=== PATIENT | female | born 1975 | race Caucasian/White ===

== ENCOUNTER 2023-12-08 09:13 | Emergency (ER) | payer OTHER, SELFPAY ==
--- NOTE | ~2023-12-08 | XR_ITS ---
XR toe 2nd RT min 2V 12/08/2023 09:50 Indication: Right second toe pain after recent fracture Procedure: 4 views right second toe Comparison: No prior studies for comparison. Findings: There is an ossific density medial to the second proximal phalangeal head, consistent with age-indeterminate avulsion fracture. There is a single screw in the first metatarsal neck. 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 No focal soft tissue abnormality. No foreign bodies. Impression: 1: Ossific density medial to the second proximal phalangeal head, consistent with age-indeterminate a vulsion fracture. Reviewed, dictated and finalized at location B. Impression: 1: Ossific density medial to the second proximal phalangeal head, consistent wi th age-indeterminate avulsion fracture.
[2023-12-08 09:25] VITALS: BP 131/73; PULSE 71; RESP 16; TEMP 36.8; O2SAT 100
--- NOTE | 2023-12-08 09:35 | ED.LOWEXIN ---
HPI - Extremity Injury (Lower) General Chief Complaint: Extremity Injury, Lower Stated Complaint: Toe Rt Foot Pain Time Seen by Provider: 12/08/23 09:33 Source: patient and RN notes reviewed Mode of arrival: ambulatory Limitations: no limitations History of Present Illness HPI Narrative: 47 year old female presents with concern for increasing pain to the 2 digit of her right foot. Reports she broke the toe at the beginning of November. She has been using dylan tape and has recently started wearing a post op shoe. She denies new injury or trauma to the toe. She reports redness and burning senstation. complaint: foot injury Related Data Home Medications Medication Instructions Recorded Confirmed sertraline 50 mg tablet 50 mg PO DAILY 12/08/23 12/08/23 spironolactone 100 mg tablet 100 mg PO DAILY 12/08/23 12/08/23 trazodone 100 mg tablet 100 mg PO HS 12/08/23 12/08/23 Allergies Allergy/AdvReac Type Severity Reaction Status Date / Time No Known Allergies Allergy Verified 12/08/23 09:22 Review of Systems Review of Systems: CONSTITUTIONAL: Denies malaise, chills, sweats, or fever. SKIN: Denies rash or itching, open skin, laceration, abrasion MUSCULOSKELETAL: Reports pain to the 2nd digit of the right foot, warmth, and redness NEUROLOGIC: Denies numbness, weakness All systems reviewed & are unremarkable except as noted in HPI and below PMFSH Comments At time of signature, agree with nursing past medical, surgical, social and family history. There is no relevant family history pertinent to the presenting complaint Exam Narrative: GENERAL: Well-appearing, well-nourished, and in no acute distress. HEAD: Normocephalic, atraumatic. EYES: PERRLA, conjunctivae clear NECK: Supple. CHEST: Speaks in full sentences. No respiratory distress. HEART: Regular rate and rhythm. Normal and equal peripheral pulses. EXTREMITIES: 2nd digit of the right foot has grossly normal strength and sensation. No ecchymosis. My digit erythema noted with very mild edema. Normal sensation with sensitivity to light touch and pain. Mid digit tenderness. No open wounds, no skin tenting, no devitalized tissue or atrophy, no trophic changes, no obvious deformity, alignment normal, nearby joints and structures intact. Distal pulses palpable and equal bilaterally, skin warm, dry, pink. Capillary refill less than 3 seconds. SKIN: Warm, dry, no rash. NEURO: Alert and oriented x3. PSYCH: Normal mood and affect Course Course Emergency Course: Patient is aware of diagnosis, understands and agrees to treatment plan. Anticipatory guidance given. Patient agrees to follow-up as directed and is aware of reasons to seek care at the emergency department. Portions of this record may have been created with voice recognition software Level of Care: Express Care Visit Vital Signs Vital signs: Vital Signs Temperature 98.3 F 12/08/23 09:25 Pulse Rate 71 12/08/23 09:25 Respiratory Rate 16 12/08/23 09:25 Blood Pressure 131/73 12/08/23 09:25 Pulse Oximetry 100 12/08/23 09:25 Oxygen Delivery Room Air 12/08/23 09:25 Temperature 98.3 F 12/08/23 09:25 Pulse Rate 71 12/08/23 09:25 Respiratory Rate 16 12/08/23 09:25 Blood Pressure 131/73 12/08/23 09:25 Pulse Oximetry 100 12/08/23 09:25 Oxygen Delivery Room Air 12/08/23 09:25 Reviewed. MDM - Extremity Injury (Lower) MDM Narrative Medical decision making narrative: Patients injury and pain is consistent with musculoskeletal etiology. No signs of neurological or vascular compromise on exam. Compartments and tissues are soft without signs of compartment syndrome. Pain is felt appropriate for further evaluation on an outpatient basis. Imaging Data My impression: Images reviewed, interpreted by radiologist, agree, see report. Radiologist's impression: XR toe 2nd RT min 2V 12/08/2023 09:50 Indication: Right second toe pain after recent fracture Procedure: 4 vi
== END 2023-12-08 10:06 | disposition home or self-care (01) ==
PROVIDERS: Emergency Provider Nurse Practitioner; PCP Physician Assistant
DX: L03.031 Cellulitis of right toe (principal); K21.9 Gastro-esophageal reflux disease without esophagitis; F41.9 Anxiety disorder, unspecified; F32.A Depression, unspecified; Z98.84 Bariatric surgery status; Z85.3 Personal history of malignant neoplasm of breast; Z92.21 Personal history of antineoplastic chemotherapy; Z86.16 Personal history of COVID-19
CPT/HCPCS: 73660; 99203; G0463

== ENCOUNTER 2024-08-18 16:48 | Emergency (ER) | payer OTHER, SELFPAY ==
--- OUTSIDE RECORDS SUMMARY | 2024-08-18 16:51 | XMS_ITS ---
Author Organization [facility] Address [address] [place] [address] Care Team Providers Care Manager Part Name Role Phone Carlos Rodriguez Unavailable [phone] Meghan BARON, Lavon Unavailable Unavail able REASON FOR VISIT holding off on injection until see surgeon Encounters Encounter Location Date Provider Diagnosis -[facility]/ [facility] [address] [place] [address] [address] [place] [address] 02/26/2023 Carlos Rodriguez Plan Of Treatment No Information Progress Notes * Clara GARCIADOB:1975 (48 yo F)Acc No.[id number]:02/26/2023 Patient: Clara HENDRIX :1975 A ge:47 Y S ex:Female Address:[facility] [address], [place], [address] * * Date:
--- OUTSIDE RECORDS SUMMARY | 2024-08-18 16:51 | XMS_ITS | Referral Summary ---
Author Organization [address] Address [address] [place] [address] Care Team Providers Care Director Of Maintenance Name Role Phone Unavailable Primary Care Provider Unavailabl e Allergies No known active allergies Medications biotin 5 mg capsule Take 5 mg by mouth daily Active traZODone (DESYREL) 50 mg tablet 09/26/2021 Active albuterol HFA (PROVENTIL HFA,VENTOLIN HFA,PROAIR HFA) 90 mcg/actuation inhaler Inhale every 6 (six) hours as needed for wheezing Active ketorolac (TORADOL) 10 mg tablet Take 10 mg by mouth every 6 (six) hours as needed for pain Active cholecalciferol (VITAMIN D-3) 5,000 unit tablet Active cyanocobalamin (Vitamin B-12) 2,500 mcg tablet, sublingualIndic ations:Preventi on of Vitamin B12 Deficiency Activ e aspirin 325 mg tablet Take 325 mg by mouth daily Active zinc 50 mg tablet Take by mouth Active Active Problems No known active problems Social History Tobacco Use Types Packs/Day Years Used Date Smoking Tobacco: Former Smokeless Tobacco: Never Personal Safety Answer Date Recorded Getting School Help Needed Not on file 09/21 Comments Unknown Sex and Gender Information Value Date Recorded Sex Assigned at Not on file Legal Sex Female 2:31 PM CDT Gender Identity Not on file Sexual Orientation Not on file Last Filed Vital Signs Vital Sign Reading Time Taken Comments Blood Pressure - - Pulse - - Temperature - - Respiratory Rate 17 10/26/2021 10:59 AM CDT Oxygen Saturation - - Inhaled Oxygen Concentration - - Weight 54.9 kg (121 lb) 10/26/2021 10:59 AM CDT Height 160 cm (5' 3 ) 10/26/2021 10:59 AM CDT Body Mass Index 21.43 10/26/2021 10:59 AM CDT Plan of Treatment Not on file Insurance CLAIMS
--- OUTSIDE RECORDS SUMMARY | 2024-08-18 16:51 | XMS_ITS | Patient Health Record ---
Author Organization [facility] Address [address] [place] [address] Care Team Providers Care Machine Tailer Name Role Phone Carlos Rodriguez Unavailable [phone] Meghan BARON, Lavon Unavailable Unavail able Allergies No Known Allergies Reason For Referral No Information Medications Medication SIG (Take, Route, Frequency, Duration) Notes Start Date End Date Status Albuterol Sulfate HFA 108 (9 0 Base) MCG/ACT 1 puff as needed Inhalation every 4 hrs Active Cholecalciferol 125 MCG (500 0 UT) 1 capsule Orally Once a day for 30 day(s) Active Chelated Zinc 50 MG 1 tablet Orally Once a day for 30 day(s) Active traZODone HCl 50 MG 1 tablet at bedtime as needed Orally Once a day for 30 day(s) Active Biotin 5 MG 1 tablet Orally Once a day for 30 day(s) Active Aspirin 81 MG 1 tablet Orally Once a day for 30 day(s) Active HYDROcodone-Acetaminophen 5-325 MG 1 tablet as needed Orally every 6 hrs Active diazePAM 5 MG 1 tablet as needed Orally Once a day Active Cyclobenzaprine HCl 5 MG 1 tablet at bed time as needed Orally Once a day for 30 day(s) Active Cyanocobalamin 2000 MCG 1 tablet Orally Once a day for 30 day(s) Active Spironolactone 100 MG 1 tablet Orally On ce a day for 30 day(s) Active Rimegepant Sulfate 75 MG 1 tablet on the tongue and allow to dissolve Orally for 30 day(s) Active Meloxicam 7.5 MG 1 tablet Orally Once a day for 30 day(s) Active Lidocaine 4 % 1 patch as needed Externally Once a day Active Social History Tobacco Use: Social History Observation Description Date Details (start date - stop date) Former Smoker NA - NA Smoking Question Answer Notes Are you a: former smoker Alcohol Screen Question Answer Notes How often did you have a dri nk containing alcohol in the past year? 2 to 4 times a month (2 points) Plan Of Treatment No Information Insurance Providers Payer Name Payer Address Payer Phone Subscriber Number Group Number Insured Name Patient Relationship to Insured Coverage Start Date Coverage End Date [facility] [address] [place] [address] [phone] [id number] Clara Olivarez Self - patient is the insured Medical (General) History Medical History History ICD Code Anxiety disorder: Yes Arthritis: Yes Asthma: Yes Back pain: Yes Headache: Yes Migraine headache: Yes Multiple Sclerosis: Yes Surgical History Surgery Date(Month/Year) lft breast lumpectomy 10/06/2005 Breast Augmentation 2014 Gastric Bypass 2010 hyterectomy 12/06/2005 Breast Lumpectomy 2005 gastric bypass 05/14/2011 Hysterectomy 2006 hital hernia repair 05/14/2011 Hernia REPAIR Unknown breast implants 10/20/2014 Bunionectomy alyssia vance 11/06/2015 rt foot bunionectomy 05/15/2019 left foot bunionectomy 03/15/2022
--- OUTSIDE RECORDS SUMMARY | 2024-08-18 16:51 | XMS_ITS | Clinical Summary ---
Author Organization [address] Address [address] [place] [address] Care Team Providers Care Risk Professional Name Role Phone Unavailable Primary Care Provider [...] Active Active Problems No known active problems Surgical History Surgery Date Site/Laterality Comments GASTRIC BYPASS HIATAL HERNIA REPAIR BREAST SURGERY HYSTERECTOMY BUNIONECTOMY Medical History Medical History Date Comments Allergic rhinitis Asthma Anxiety Neck mass Family History Medical History Relation Name Comments Hyperlipidemia Father Anemia Mother Cancer Mother Diabetes Mother Hyperlipidemia Mother Stroke Mother Relation Name Status Comments Father Mother Social History Tobacco Use Types Packs/Day Years Used Date Smoking Tobacco: Former Smokeless Tobacco: Never Personal Safety Answer Date Recorded Getting School Help Needed Not on file 09/21 Comments Unknown Sex and Gender Information Value Date Recorded Sex Assigned at Not on file Legal Sex Female 2:31 PM CDT Gender Identity Not on file Sexual Orientation Not on file Obstetrics History Last Filed Vital Signs Vital Sign Reading [...] 10/26/2021 10:59 AM CDT Plan of Treatment Health Maintenance Due Date Last Done Comments Breast Cancer Screening-Mammogram 1975 Colon Cancer Screening-Colonoscopy 1975 Depression Screening 1975 Hepatitis C Screening 1975 DTaP/Tdap/Td Vaccine (1 - Tdap) 1984 Hepatitis B Screening 12/13/1991 Regular Well Visit/Exam 18-64 12/13/1991 Zoster Vaccine (1 of 2) 12/13/2023 Influenza Vaccine (#1) 2024 Pneumococcal vaccine <65 Aged Out No longer eligible based on patient's age to complete this topic Insurance CLAIMS
--- OUTSIDE RECORDS SUMMARY | 2024-08-18 16:51 | XMS_ITS | Data Portability ---
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 Plan of Treatment Reminders Order Date Submit Date Provider Last Modified By Organization Details Last Modified Time Details Appointments None recorded. Lab lipid panel, serum 2022 023 [facility], [address] [place] [address], [facility] [address], [place], [address], 3 14:14:11 unlisted lab - CBC/D/plt+f er 2022 023 [facility], [address] [place], [place] [address]ernie Edd, [facility] [address], [place], [address], 3 14:14:12 iron + total iron-bindin g capacity (TIBC), serum 2022 023 [facility] [place], [address] [place] [address], [facility] [address], [place], [address], 3 14:14:12 BMP, serum or plasma 2022 023 [facility], [address] [place], [place] [address]ernie Edd, [facility] [address], [place], [address], 3 14:14:10 noninvasive colorectal cancer DNA + occult blood screening, QL, stool 2022 023 [facility] (Cologuard Orders Only), [address], [address], [place], [address], 4 15:49:37 lipid panel, serum 2023 024 [facility], [address] [facility] [address], [address], [place], [address], 4 00:09:19 CBC w/ auto diff 2023 024 [facility], [address], [address], [place], [address], 4 00:09:21 PT/PTT, plasma 2023 024 [facility], [address] [facility], [address], [place], [address], 4 07:23:31 BMP, serum or plasma 2023 024 [facility], [address] [facility], [address], [place], [address], 4 00:09:20 Referral gastroenter ologist referral 2022 023 arlene Gan MD, [address], [address], [place], [address], 4 10:49:50 negative restorer referral 2023 024 arlene Garcia MD, [address], [address], [place], [address], 4 10:14:[address] referral 2023 024 [facility], [address] [facility] [address], [place], [address], 09:59:39 Procedures None recorded. Surgeries None recorded. Imaging None recorded. Medication Orders trazodone 100 mg tablet 2022 023 [email or web address] [id number], [address], [place], [id number], 15:00:49 diazepam 5 mg tablet 2023 024 PRIS[facility]LL[facility], [address] [place] [address], [address], 4 11:32:17 naproxen 500 mg tablet 2023 024 [email or web address] [facility], [address] [place] [address], [address], 4 11:32:19 Patient TargetsNo targets recorded. 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: care instructions [email or web address] Not available 12/19/2023 16:55:56 Reason for Referral Efficiency Manager Referral for Screening for malignant neoplasm of colon Referring Physician: Bob Richmond, Telephone Directory Distributor Driver, Encounter Date: 02/26/2023 Microarray Operations Vice President Referral for Frac ture of phalanx of foot Referring Physician: Ursula Rivas, Family Medicine, Encounter Date: 12/19/2023 Padded Products Finisher Referral for A lopecia Referring Physician: Ursula Rivas Family Medicine, Encounter Date: 12/19/2023 Results Created Date Observation Date Name Description Value Unit Range Abnormal Flag Note LastModifiedBy Organization Detail LastModifiedTime 05/09/20 24 05/09/2024 COLOG UARD cologuard result Cancel led - Order d not applic able Not Available [facility] (Cologuard Orders Only) [address], [place], [address], 05/09/2024 08:30:48 02/06/20 23 02/05/2023 CBC WITH DIFF WBC 5.8 x10'3 /uL 4.5-11 .0 Not Available [facility] (Lab) [address], [place], [address], 02/05/2023 12:22:15 02/06/20 23 02/05/2023 CBC WITH DIFF RBC 4.32 x10'6 /uL 4.20-5 .40 Not Available [facility] (Lab) [address] [facility], [place], [address], 02/05/2023 12:22:15 02/06/20 23 02/05/2023 CBC WITH DIFF hemoglobin 13.1 g/dL 12.0-1 6.0 Not Available [facility] (Lab) [address] [facility], [place], [address], 02/05/2023 12:22:15 02/06/20 23 02/05/2023 CBC WITH DIFF hematocrit 40.5 % 38.0-4 8.0 Not Available [facility] (Lab) [address] [place], [address], 02/05/2023 12:22:15 02/06/20 23 02/05/2023 CBC WITH DIFF MCV 93.8 fL 81.0-9 9.0 Not Available [facility] (Lab) [address] [place], [address], 02/05/2023 12:22:15 02/06/20 23 02/05/2023 CBC WITH DIFF MCH 30.3 pg 27.0-3 1.0 Not Available [facility] (Lab) [address] [facility], [place], [address], 02/05/2023 12:22:15 02/06/20 23 02/05/2023 CBC WITH DIFF MCHC 32.3 g/dL 32.0-3 6.0 Not Available [facility] (Lab) [address] [facility], [place], [address], 02/05/2023 12:22:02/06/20 23 02/05/2023 CBC WITH DIFF RDW 13.7 % 11.5-1 4.5 Not Available [facility] (Lab) [place], [address], 02/05/2023 12:22:15 02/06/20 23 02/05/2023 CBC WITH DIFF platelet count 285 x10'3 /uL 130-40 0 Not Available [facility] (Lab) [address] [facility], [place], [address], 02/05/2023 12:22:15 02/06/20 23 02/05/2023 CBC WITH DIFF MPV 9.8 fL 9.3-12 .2 Not Available [facility] (Lab) [address] [facility], [place], [address], 02/05/2023 12:22:15 02/06/20 23 02/05/2023 CBC WITH DIFF diff type AUTOMA MYAH DIFFER ENTIAL Not Available [facility] (Lab) [address] [facility], [place], [address], 02/05/2023 12:22:15 02/06/20 23 02/05/2023 CBC WITH DIFF neutrophils 53.9 % Not Available [facility] (Lab) [address], [place], [address], 02/05/2023 12:22:15 02/06/20 23 02/05/2023 CBC WITH DIFF lymphocytes 36.8 % Not Available [facility] (Lab) [address], [place], [address], 02/05/2023 12:22:15 02/06/20 23 02/05/2023 CBC WITH DIFF monocytes 7.4 % Not Available [facility] (Lab) [address], [place], [address], 02/05/2023 12:22:15 02/06/20 23 02/05/2023 CBC WITH DIFF eosinophils 1.0 % Not Available [facility] (Lab) [address], [place], [address], 02/05/2023 12:22:15 02/06/20 23 02/05/2023 CBC WITH DIFF basophils 0.7 % Not Available [facility] (Lab) [address], [place], [address], 02/05/2023 12:22:15 02/06/20 23 02/05/2023 CBC WITH DIFF immature granulocytes 0.2 % Not Available [facility] (Lab) [address], [place], [address], 02/05/2023 12:22:15 02/06/20 23 02/05/2023 CBC WITH DIFF abs. neutrophils 3.12 x10'3 /uL 1.80-7 .70 Not Available [facility] (Lab) [address], [place], [address], 02/05/2023 12:22:15 02/06/20 23 02/05/2023 CBC WITH DIFF abs. lymphocytes 2.13 x10'3 /uL 1.00-4 .80 Not Available [facility] (Lab) [address] [facility], [place], [address], 02/05/2023 12:22:02/06/20 23 02/05/2023 CBC WITH DIFF abs. monocytes 0.43 x10'3 /uL 0.24-0 .86 Not Available [facility] (Lab) [address], [place], [address], 02/05/2023 12:22:02/06/20 23 02/05/2023 CBC WITH DIFF abs. eosinophils 0.06 x10'3 /uL 0.04-0 .36 Not Available [facility] (Lab) [address] [place], [address], 02/05/2023 12:22:15 02/06/20 23 02/05/2023 CBC WITH DIFF abs. basophils 0.04 x10'3 /uL 0.01-0 .08 Not Available [facility] (Lab) [place], [address], 02/05/2023 12:22:15 02/06/20 23 02/05/2023 CBC WITH DIFF abs. immature grans 0.01 x10'3 /uL 0.00-0 .49 Not Available [facility] (Lab) [place], [address], 02/05/2023 12:22:15 02/06/20 23 02/05/2023 COMPR EHENS ETELVINA METAB OLIC PANEL glucose 78 mg/dL 70-99 Not Available [facility] (Lab) [place], [address], 02/05/2023 12:49:52 02/06/20 23 02/05/2023 COMPR EHENS ETELVINA METAB OLIC PANEL BUN 11 mg/dL 7-18 Not Available [facility] (Lab) [address] [facility], [place], [address], 02/05/2023 12:49:52 02/06/20 23 02/05/2023 COMPR EHENS ETELVINA METAB OLIC PANEL creatinine 0.71 mg/dL 0.55-1 .02 Not Available [facility] (Lab) [address] [place], [address], 02/05/2023 12:49:52 02/06/20 23 02/05/2023 COMPR EHENS ETELVINA METAB OLIC PANEL sodium 140 mmol/ L 136-14 5 Not Available [facility] (Lab) [address] [facility], [place], [address], 02/05/2023 12:49:52 02/06/20 23 02/05/2023 COMPR EHENS ETELVINA METAB OLIC PANEL potassium 4.1 mmol/ L 3.5-5. 1 Not Available [facility] (Lab) [address] [place], [address], 02/05/2023 12:49:52 02/06/20 23 02/05/2023 COMPR EHENS ETELVINA METAB OLIC PANEL chloride 106 mmol/ L 100-10 8 Not Available [facility] (Lab) [address] [place], [address], 02/05/2023 12:49:52 02/06/20 23 02/05/2023 COMPR EHENS ETELVINA METAB OLIC PANEL total CO2 28.8 mmol/ L 21-32 Not Available [facility] (Lab) [address] [place], [address], 02/05/2023 12:49:52 02/06/20 23 02/05/2023 COMPR EHENS ETELVINA METAB OLIC PANEL calcium 9.0 mg/dL 8.5-10 .1 Not Available [facility] (Lab) [address] [facility], [place], [address], 02/05/2023 12:49:52 02/06/2002/05/2023 COMPR EHENS ETELVINA METAB OLIC PANEL total bilirubin 0.3 mg/dL 0.2-1. 2 THIS ASSAY IS NOT RECOM MARY KAY D FOR PATIE NTS UNDER GOING TREAT MENT WITH ELTRO MBOPA G DUE TO THE POTEN TIAL FOR FALSE LY ELEVA MYAH RESUL TS. Not Available [facility] (Lab) [place], [address], 02/05/2023 12:49:52 02/06/2002/05/2023 COMPR EHENS ETELVINA METAB OLIC PANEL total protein 7.2 g/dL 6.4-8. 2 Not Available [facility] (Lab) [place], [address], 02/05/2023 12:49:52 02/06/20 23 02/05/2023 COMPR EHENS ETELVINA METAB OLIC PANEL albumin 3.9 g/dL 3.4-5. 0 Not Available [facility] (Lab) [address] [place], [address], 02/05/2023 12:49:52 02/06/20 23 02/05/2023 COMPR EHENS ETELVINA METAB OLIC PANEL AST 39 U/L 15-37 high Not Available [facility] (Lab) [address] [place], [address], 02/05/2023 12:49:52 02/06/20 23 02/05/2023 COMPR EHENS ETELVINA METAB OLIC PANEL ALT 58 U/L 14-55 high Not Available [facility] (Lab) [place], [address], 02/05/2023 12:49:52 02/06/20 23 02/05/2023 COMPR EHENS ETELVINA METAB OLIC PANEL alk phosphatase 94 U/L 50-136 Not Available [facility] (Lab) [place], [address], 02/05/2023 12:49:52 02/06/2002/05/2023 COMPR EHENS ETELVINA METAB OLIC PANEL anion gap 5.2 mmol/ L 5-15 Not Available [facility] (Lab) [place], [address], 02/05/2023 12:49:52 02/06/20 23 02/05/2023 COMPR EHENS ETELVINA METAB OLIC PANEL BUN creatinine ratio 15.6 6-26 Not Available [facility] (Lab) [place], [address], 02/05/2023 12:49:52 02/06/20 23 02/05/2023 COMPR EHENS ETELVINA METAB OLIC PANEL A:g ratio 1.2 ratio 1.0-2. 0 Not Available [facility] (Lab) [place], [address], 02/05/2023 12:49:52 02/06/2002/05/2023 COMPR EHENS ETELVINA METAB OLIC PANEL est GFR >90 mL/mi n/1.7 3_M2 >90 NOTE: eGFR is not calcu lated for patie nts <18 years of age. This is an estim ated GFR calcu latio n using the new CKD EPI creat inine equat ion witho ut race and so does not requi re a corre ction facto r for race. This estim ated GFR shoul d not be used for calcu latin g drug doses . Not Available [facility] (Lab) [address], [place], [address], 02/05/2023 12:49:52 02/06/2002/05/2023 URIC ACID uric acid 4.5 mg/dL 2.6-6. 0 Not Available [facility] (Lab) [address], [place], [address], 02/05/2023 12:49:55 02/06/2002/05/2023 SED RATE sed rate <1 mm/HR <20 Testi ng perfo rmed on [facility] iSED. Not Available [facility] (Lab) [address], [place], [address], 02/05/2023 14:37:04 02/27/20 23 02/27/2023 BMP7+ EGFR glucose 74 mg/dL 70-99 Not Available [facility] ([facility]) [address] [place], [address], 03/01/2023 14:14:10 02/27/20 23 02/27/2023 BMP7+ EGFR BUN 12 mg/dL 6-24 Not Available [facility] ([facility]) [address] [facility], [place], [address], 03/01/2023 14:14:10 02/27/20 23 02/27/2023 BMP7+ EGFR creatinine 0.74 mg/dL 0.57-1 .00 Not Available [facility] ([facility]) [address] [place], [address], 03/01/2023 14:14:10 02/27/20 23 02/27/2023 BMP7+ EGFR eGFR 99 mL/mi n/1.7 3 >59 Not Available [facility] ([facility]) [address] [facility], [place], [address], 03/01/2023 14:14:10 02/27/20 23 02/27/2023 BMP7+ EGFR sodium 140 mmol/ L 134-14 4 Not Available [facility] ([facility]) [address] [facility], [place], [address], 03/01/2023 14:14:10 02/27/20 23 02/27/2023 BMP7+ EGFR potassium 4.3 mmol/ L 3.5-5. 2 Not Available [facility] ([facility]) [address] [facility], [place], [address], 03/01/2023 14:14:10 02/27/20 23 02/27/2023 BMP7+ EGFR chloride 102 mmol/ L 96-106 Not Available [facility] ([facility]) [address] [place], [address], 03/01/2023 14:14:10 02/27/20 23 02/27/2023 BMP7+ EGFR carbon dioxide, total 25 mmol/ L 20-29 Not Available [facility] ([facility]) [address] [facility], [place], [address], 03/01/2023 14:14:10 02/27/20 23 02/27/2023 LIPID CASCA DE W/RFL X TO APOLI B cholesterol, total 159 mg/dL 100-19 9 Not Available [facility] ([facility]) [address] [place], [address], 03/01/2023 14:14:11 02/27/20 23 02/27/2023 LIPID CASCA DE W/RFL X TO APOLI B HDL cholesterol 81 mg/dL >39 Not Available [facility] ([facility]) [address] [place], [address], 03/01/2023 14:14:11 02/27/20 23 02/27/2023 LIPID CASCA DE W/RFL X TO APOLI B LDL/HDL ratio 0.7 ratio 0.0-3. 2 LDL/H DL Ratio Men Women 1/2 Avg.R isk 1.0 1.5 Avg.R isk 3.6 3.2 2X Avg.R isk 6.2 5.0 3X Avg.R isk 8.0 6.1 Not Available [facility] ([facility]) [address] [facility], [place], [address], 03/01/2023 14:14:11 02/27/20 23 02/27/2023 LIPID CASCA DE W/RFL X TO APOLI B non-HDL cholesterol 78 mg/dL 0-129 Not Available [facility] ([facility]) [address] [place], [address], 03/01/2023 14:14:11 02/27/20 23 02/27/2023 LIPID CASCA DE W/RFL X TO APOLI B triglyceride s 112 mg/dL 0-149 Not Available [facility] ([facility]) [address] [facility], [place], [address], 03/01/2023 14:14:11 02/27/20 23 02/27/2023 LIPID CASCA DE W/RFL X TO APOLI B LDL [facility] 58 mg/dL 0-99 Not Available [facility] ([facility]) [address] [place], [address], 03/01/2023 14:14:11 02/27/20 23 02/27/2023 IRON AND TIBC iron bind.cap.(TI BC) 325 ug/dL 250-45 0 Not Available [facility] ([facility]) [address] [facility], [place], [address], 03/01/2023 14:14:12 02/27/20 23 02/27/2023 IRON AND TIBC UIBC 222 ug/dL 131-42 5 Not Available [facility] ([facility]) [address] [facility], [place], [address], 03/01/2023 14:14:12 02/27/20 23 02/27/2023 IRON AND TIBC iron 103 ug/dL 27-159 Not Available [facility] ([facility]) [address] [facility], [place], [address], 03/01/2023 14:14:12 02/27/20 23 02/27/2023 IRON AND TIBC iron saturation 32 % 15-55 Not Available [facility] ([facility]) [address] [facility], [place], [address], 03/01/2023 14:14:12 02/27/20 23 02/26/2023 CBC/D /PLT+ NIKKO WBC 6.1 x10e3 /uL 3.4-10 .8 Not Available [facility] ([facility]) [address] [facility], [place], [address], 03/01/2023 14:14:12 02/27/20 23 02/26/2023 CBC/D /PLT+ NIKKO RBC 4.19 x10e6 /uL 3.77-5 .28 Not Available [facility] ([facility]) [address] [facility], [place], [address], 03/01/2023 14:14:12 02/27/20 23 02/26/2023 CBC/D /PLT+ NIKKO hemoglobin 13.1 g/dL 11.1-1 5.9 Not Available [facility] ([facility]) [address] [place], [address], 03/01/2023 14:14:12 02/27/2002/26/2023 CBC/D /PLT+ NIKKO hematocrit 38.4 % 34.0-4 6.6 Not Available [facility] ([facility]) [address] [place], [address], 03/01/2023 14:14:12 02/27/20 23 02/26/2023 CBC/D /PLT+ NIKKO MCV 92 fL 79-97 Not Available [facility] ([facility]) [address] [facility] [place], [address], 03/01/2023 14:14:12 02/27/20 23 02/26/2023 CBC/D /PLT+ NIKKO MCH 31.3 pg 26.6-3 3.0 Not Available [facility] ([facility]) [address] [facility] [place], [address], 03/01/2023 14:14:12 02/27/20 23 02/26/2023 CBC/D /PLT+ NIKKO MCHC 34.1 g/dL 31.5-3 5.7 Not Available [facility] ([facility]) [address] [facility] [place], [address], 03/01/2023 14:14:12 02/27/20 23 02/26/2023 CBC/D /PLT+ NIKKO RDW 13.0 % 11.7-1 5.4 Not Available [facility] ([facility]) [address] [place], [address], 03/01/2023 14:14:12 02/27/20 23 02/26/2023 CBC/D /PLT+ NIKKO platelets 282 x10e3 /uL 150-45 0 Not Available [facility] ([facility]) [address] [place], [address], 03/01/2023 14:14:12 02/27/20 23 02/26/2023 CBC/D /PLT+ NIKKO neutrophils 62 % notest ab. Not Available [facility] ([facility]) [address] [place], [address], 03/01/2023 14:14:12 02/27/20 23 02/26/2023 CBC/D /PLT+ NIKKO lymphs 28 % notest ab. Not Available [facility] ([facility]) [address] [place], [address], 03/01/2023 14:14:12 02/27/20 23 02/26/2023 CBC/D /PLT+ NIKKO monocytes 8 % notest ab. Not Available [facility] ([facility]) [address] [facility], [place], [address], 03/01/2023 14:14:12 02/27/20 23 02/26/2023 CBC/D /PLT+ NIKKO eos 1 % notest ab. Not Available [facility] ([facility]) [address] [facility], [place], [address], 03/01/2023 14:14:12 02/27/20 23 02/26/2023 CBC/D /PLT+ NIKKO basos 1 % notest ab. Not Available [facility] ([facility]) [address] [facility], [place], [address], 03/01/2023 14:14:12 02/27/20 23 02/26/2023 CBC/D /PLT+ NIKKO neutrophils (absolute) 3.9 x10e3 /uL 1.4-7. 0 Not Available [facility] ([facility]) [address] [facility], [place], [address], 03/01/2023 14:14:12 02/27/20 23 02/26/2023 CBC/D /PLT+ NIKKO lymphs (absolute) 1.7 x10e3 /uL 0.7-3. 1 Not Available [facility] ([facility]) [address] [facility], [place], [address], 03/01/2023 14:14:12 02/27/20 23 02/26/2023 CBC/D /PLT+ NIKKO monocytes(ab solute) 0.5 x10e3 /uL 0.1-0. 9 Not Available [facility] ([facility]) [address] [facility], [place], [address], 03/01/2023 14:14:12 02/27/20 23 02/26/2023 CBC/D /PLT+ NIKKO eos (absolute) 0.0 x10e3 /uL 0.0-0. 4 Not Available [facility] ([facility]) [address] [place], [address], 03/01/2023 14:14:12 02/27/20 23 02/26/2023 CBC/D /PLT+ NIKKO baso (absolute) 0.0 x10e3 /uL 0.0-0. 2 Not Available [facility] ([facility]) [address] [place], [address], 03/01/2023 14:14:12 02/27/2002/26/2023 CBC/D /PLT+ NIKKO immature granulocytes 0 % notest ab. Not Available [facility] ([facility]) [address] [place], [address], 03/01/2023 14:14:12 02/27/20 23 02/26/2023 CBC/D /PLT+ NIKKO immature grans (abs) 0.0 x10e3 /uL 0.0-0. 1 Not Available [facility] ([facility]) [address] [place], [address], 03/01/2023 14:14:12 02/27/20 23 02/27/2023 CBC/D /PLT+ NIKKO ferritin 483 NG/mL 15-150 above high normal Not Available [facility] ([facility]) [address] [place], [address], 03/01/2023 14:14:12 02/27/2003/01/2023 APOLI POPRO TEIN B apolipoprote in B 56 mg/dL <90 Tosin able < 90 Borde rline High 90 - 99 High 100 - 130 Very High >130 ----- ----- ----- ----- ----- ----- ----- ----- ----- ----- ASCVD RISK THERA AMADEO NAVAS APO B (mg/d L) Very High Risk <80 (if extre me risk <70) High Risk <90 Moder ate Risk <90 Not Available [facility] ([facility]) [address] [facility], [place], [address], 03/01/2023 14:14:10 08/09/19 24 08/09/2023 LIPID PANEL cholesterol, total 193 mg/dL 100-19 9 Not Available [facility] Department [address] [place] [address], [address], 08/10/2023 00:09:19 08/09/1908/09/2023 LIPID PANEL triglyceride s 75 mg/dL 0-149 Not Available [facility] Department [address] [place] [address], [address], 08/10/2023 00:09:19 08/09/1908/09/2023 LIPID PANEL HDL cholesterol 88 mg/dL 40-999 Not Available [facility] Department [address] [place], [address], 08/10/2023 00:09:19 08/09/1908/09/2023 LIPID PANEL VLDL cholesterol sangita 15 mg/dL 5-40 Not Available [facility] Department [address] [place], [address], 08/10/2023 00:09:19 08/09/1908/09/2023 LIPID PANEL LDL chol [facility] 101 mg/dL 0-99 above high normal Not Available [facility] Department [address] [place], [address], 08/10/2023 00:09:19 08/09/1908/09/2023 BASIC METAB OLIC PANEL (8) glucose 97 mg/dL 70-99 Not Available [facility] Department [address] [place], [address], 08/10/2023 00:09:20 08/09/19 24 08/09/2023 BASIC METAB OLIC PANEL (8) BUN 11 mg/dL 6-24 Not Available [facility] Department [address] [place], [address], 08/10/2023 00:09:20 08/09/19 24 08/09/2023 BASIC METAB OLIC PANEL (8) creatinine 0.61 mg/dL 0.76-1 .27 below low normal Not Available [facility] Department [address] [place], [address], 08/10/2023 00:09:20 08/09/19 24 08/09/2023 BASIC METAB OLIC PANEL (8) eGFR 110 >=60 Units for eGFR value s are mL/mi n/1.7 3 The eGFR Calcu latio n has not been valid ated for patie nts under the age of 18. If test resul ts are displ ayed for a patie nt under the age of 18, disre laurita that value . Not Available [facility] Department [address] [place] [address], [address], 08/10/2023 00:09:20 08/09/19 24 08/09/2023 BASIC METAB OLIC PANEL (8) BUN/creatini ne ratio 18 9-23 Not Available [facility] Department [address] [place], [address], 08/10/2023 00:09:20 08/09/19 24 08/09/2023 BASIC METAB OLIC PANEL (8) sodium 142 mmol/ L 134-14 4 Not Available [facility] Department [address] [place], [address], 08/10/2023 00:09:20 08/09/19 24 08/09/2023 BASIC METAB OLIC PANEL (8) potassium 4.3 mmol/ L 3.5-5. 2 Not Available [facility] Department [address] [place], [address], 08/10/2023 00:09:20 08/09/19 24 08/09/2023 BASIC METAB OLIC PANEL (8) chloride 100 mmol/ L 96-106 Not Available [facility] Department [address] [place], [address], 08/10/2023 00:09:20 08/09/19 24 08/09/2023 BASIC METAB OLIC PANEL (8) carbon dioxide, total 30 mmol/ L 20-29 above high normal Not Available [facility] Department [address] [place], [address], 08/10/2023 00:09:20 08/09/19 24 08/09/2023 BASIC METAB OLIC PANEL (8) calcium 10.0 mg/dL 8.7-10 .2 Not Available [facility] Department [address] [place], [address], 08/10/2023 00:09:20 08/09/19 24 08/09/2023 CBC WITH DIFFE RENTI AL/PL ATELE T WBC 4.6 x10e3 /uL 3.4-10 .8 Not Available [facility] Department [address] [place], [address], 08/10/2023 00:09:21 08/09/19 24 08/09/2023 CBC WITH DIFFE RENTI AL/PL ATELE T RBC 4.50 x10e6 /uL 3.77-5 .28 Not Available [facility] Department [address] [place], [address], 08/10/2023 00:09:21 08/09/19 24 08/09/2023 CBC WITH DIFFE RENTI AL/PL ATELE T hemoglobin 13.2 g/dL 11.1-1 5.9 Not Available [facility] Department [address] [place], [address], 08/10/2023 00:09:21 08/09/19 24 08/09/2023 CBC WITH DIFFE RENTI AL/PL ATELE T hematocrit 40.9 % 34.0-4 6.6 Not Available [facility] Department [address] [place], [address], 08/10/2023 00:09:21 08/09/19 24 08/09/2023 CBC WITH DIFFE RENTI AL/PL ATELE T MCV 91 fL 79-97 Not Available [facility] Department [address] [place], [address], 08/10/2023 00:09:21 08/09/19 24 08/09/2023 CBC WITH DIFFE RENTI AL/PL ATELE T MCH 29.3 pg 26.6-3 3.0 Not Available [facility] Department [address] [place], [address], 08/10/2023 00:09:21 08/09/19 24 08/09/2023 CBC WITH DIFFE RENTI AL/PL ATELE T MCHC 32.3 g/dL 31.5-3 5.7 Not Available [facility] Department [address] [place], [address], 08/10/2023 00:09:21 08/09/19 24 08/09/2023 CBC WITH DIFFE RENTI AL/PL ATELE T RDW 12.7 % 11.5-1 4.5 Not Available [facility] Department [address] [place], [address], 08/10/2023 00:09:21 08/09/19 24 08/09/2023 CBC WITH DIFFE RENTI AL/PL ATELE T platelets 316 x10e3 /uL 150-45 0 Not Available [facility] Department [address] [place], [address], 08/10/2023 00:09:21 08/09/19 24 08/09/2023 CBC WITH DIFFE RENTI AL/PL ATELE T neutrophils 52 % notest b. Not Available [facility] Department [address] [place], [address], 08/10/2023 00:09:21 08/09/19 24 08/09/2023 CBC WITH DIFFE RENTI AL/PL ATELE T lymphs 39 % notest b. Not Available [facility] Department [address] [place], [address], 08/10/2023 00:09:21 08/09/19 24 08/09/2023 CBC WITH DIFFE RENTI AL/PL ATELE T monocytes 6 % notest b. Not Available [facility] Department [address] [place], [address], 08/10/2023 00:09:21 08/09/19 24 08/09/2023 CBC WITH DIFFE RENTI AL/PL ATELE T eos 2 % notest b. Not Available [facility] Department [address] [place], [address], 08/10/2023 00:09:21 08/09/19 24 08/09/2023 CBC WITH DIFFE RENTI AL/PL ATELE T basos 1 % notest b. Not Available [facility] Department [address] [place], [address], 08/10/2023 00:09:21 08/09/19 24 08/09/2023 CBC WITH DIFFE RENTI AL/PL ATELE T neutrophils (absolute) 2.4 x10e3 /uL 1.4-7. 0 Not Available [facility] Department [address] [place], [address], 08/10/2023 00:09:21 08/09/19 24 08/09/2023 CBC WITH DIFFE RENTI AL/PL ATELE T lymphs (absolute) 1.8 x10e3 /uL 0.7-3. 1 Not Available [facility] Department [address] [place], [address], 08/10/2023 00:09:21 08/09/19 24 08/09/2023 CBC WITH DIFFE RENTI AL/PL ATELE T monocytes(ab solute) 0.3 x10e3 /uL 0.1-0. 9 Not Available [facility] Department [address] [place], [address], 08/10/2023 00:09:21 08/09/19 24 08/09/2023 CBC WITH DIFFE RENTI AL/PL ATELE T eos (absolute) 0.1 x10e3 /uL 0.0-0. 4 Not Available [facility] Department [address] [place], [address], 08/10/2023 00:09:21 08/09/19 24 08/09/2023 CBC WITH DIFFE RENTI AL/PL ATELE T baso (absolute) 0.1 x10e3 /uL 0.0-0. 2 Not Available [facility] Department [address] [place] [address], [address], 08/10/2023 00:09:21 08/09/19 24 08/09/2023 CBC WITH DIFFE RENTI AL/PL ATELE T immature granulocytes 0.4 % notest b. Not Available [facility] Department [address] [place], [address], 08/10/2023 00:09:21 08/09/19 24 08/09/2023 CBC WITH DIFFE RENTI AL/PL ATELE T immature grans (abs) 0.0 x10e3 /uL 0.0-0. 1 Not Available [facility] Department [address] [place], [address], 08/10/2023 00:09:21 08/09/19 24 08/09/2023 CBC WITH DIFFE RENTI AL/PL ATELE T NRBC 0 % 0-0 Not Available [facility] Department [address] [place], [address], 08/10/2023 00:09:21 08/09/19 24 08/10/2023 PT AND PTT INR 1.0 0.9-1. 2 Refer ence inter noa is for non-a ntico agula myah patie nts. Sugge sted INR thera peuti c range for Vitam in K antag onist thera py: Stand ysabel Dose (mode rate inten sity thera peuti c range ): 2.0 - 3.0 Highe r inten sity thera peuti c range 2.5 - 3.5 Not Available [facility] ([facility]) [address] [facility], [place], [address], 08/10/2023 07:23:31 08/09/19 24 08/10/2023 PT AND PTT prothrombin time 10.3 sec 9.1-12 .0 Not Available [facility] ([facility]) [address] [facility], [place], [address], 08/10/2023 07:23:31 08/09/19 24 08/10/2023 PT AND PTT APTT 27 sec 24-33 This test has not been valid ated for monit oring unfra ction ated hepar in thera py. aPTT- based thera peuti c range s for unfra ction ated hepar in thera py have not been estab cecilia Garcia gener al guide lines on Hepar in monit oring , refer to the [facility] Direc tory of Ai gomez. Not Available [facility] ([facility]) [address] [facility], [place], [address], 08/10/2023 07:23:31 02/03/20 23 xr foot RT [address]V [facility] [address] [facility] [address] [facility] [place] [address] Examin ation: Right foot 3 views Access ion: [id number] Exam date/t terry: 023 12:32 PM Reason For Exam: pain and swelli ng over right forefo ot, bunion ectomy surger y 2019, swelli ng and pain over site Compar homar: No prior exam Techni que: AP, obliqu e and latera l views of the right foot were obtain ed. Findin gs: There are radiog raphic [facility] consis tent with prior bunion ectomy . Straig ht medial margin right first metata rsal head and neck with cannul ated screw within the right first metata rsal neck consis tent with healed first metata rsal osteot funmilayo. No eviden ce of acute fractu re. No eviden ce of focal osteol yses or abnorm al perios teal reacti ons. Tiny chroni c appear ing ossifi c densit y projec ts medial to the right first metata rsal neck. No eviden ce of acute fractu re, sublux ation, or disloc ation. No eviden ce of abnorm al soft tissue densit ies. Minima l planta r calcan eal enthes ophyte . =====I MPRESS ION:== === 1. No acute abnorm ality. 2. [facility] consis tent with prior bunion surger y. ====== ====== ====== === Ordere d By: MIGUEL Harrell [facility] onical ly Signed By: Som De Paz MD on 023 1:11 PM Interp reted By: Som De Paz MD, 023 1:09 PM [email or web address] [facility] [address] [facility], [place], [address], 02/04/2023 09:52:49 08/12/19 24 08/09/2023 elect toni serrano am No observ ation record ed. BARCODE Not Available 2023 12:08:37 11/12/19 24 xr foot RT 3V [facility] [place] [address] EXAMIN ATION: Right foot 2views ACCESS ION: [id number] EXAM DATE/T TERRY: 11/12/19 24 3:51 PM REASON FOR EXAM: jammed 2nd throug h 4th toes COMPAR HOMAR: 023 TECHNI QUE: AP, and latera l views of the right foot were obtain ed. FINDIN GS: Rounde d densit y is seen adjace nt to the proxim al interp halang eal joint of the second toe. This is nonspe cific in appear ance and was not presen t on prior study. Joint spaces preser gurpreet. No destru ctive osseou s lytic or sclero tic lesion s. No radiop aque foreig n bodies . Postop erativ e change s first metata rsal is seen, stable as compar ed prior study. Mild arthro malachi of the first metata rsal-p halang eal joint is noted. Calcan eal spur is seen. =====I MPRESS ION:== === New abnorm ality in the second toe medial ly, in close proxim ity to the proxim al interp halang eal joint. [facility]. Subtle avulsi on is possib le althou gh morpho logy [facility]. Contin ued follow -up could be consid ered. Ordere d By: NAVI CARRIZALES Electr onical ly Signed By: Efrain Kelly MD on 11/12/19 4:09 PM Interp reted By: Efrain Kelly MD, 11/12/19 4:00 PM [email or web address] [facility] [address] [place], [address], 11/13/2023 09:02:35 Result Notes None recorded. Problems Name Problem SNOMED Code Status Onset Date Resolution Date Notes Provider Name and Address Organization Details Recorded Time History of bypass of stomach 533949457 Active 2010 Bob Richmond PA-C Attn: Maldonado salas,[address] [facility], [place], [address], [facility] 2 16:20:35 Iron deficiency anemia 56088773 Active 2021 Bob Richmond PA-C Attn: Maldonado salas,[address] [facility], [place], [address], [facility] 2 16:20:39 Asthma 277843685 Active 2021 Bob Richmond PA-C Attn: Accountin g,[address] [facility], [place], [place], [address] [place] [address] 2, [place] [facility] 2 16:20:22 Anxiety 83080121 Active 2021 Bob Richmond PA-C Attn: Accountelsa g,[address] [facility], [place], [place], [address] [place] [address] 2, [place] [facility] 2 16:20:20 Insomnia 220283808 Active 2021 Bob Richmond PA-C Attn: Accountin g,[address] [facility], [place], [place], [address] [place] [address] 2, [place] [facility] 2 16:20:37 Malignant tumor of cervix 044815250 Active 2005 Cervical and Uterine, per pt. 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 lar gland chronicall y enlarged Bob Richmond PA-C Attn: Accountelsa g,[address] [facility], [place], [place], [address] [place] [address] 2, [place] [facility] 2 16:20:51 Bunion 623203814 Active 2021 Bob Richmond PA-C Attn: Accountin g,[address] [facility], [place], [place], [address] [place] [address] 2, [place] [facility] 2 16:20:27 Chronic low back pain 520219403 Active 2021 Occasiona lly uses tramadol or gets toradol injections Bob Richmond PA-C Attn: Accountin g,[address] [facility], [place], [place], [address] [place] [address] 2, [place] [facility] 2 16:20:33 Migraine 67869870 Active 2021 Bob Richmond PA-C Attn: Accountin g,[address], [place], [address], [facility] 16:20:48 Problem Notes None recorded. Procedures Surgical History Date Name Laterality Status Provider Name and Address Organization Details Recorded Time 07/08/19 08 lumpectomy of left breast completed Bob Richmond PA-C Attn: Accounting,[address] [facility], [place], [address], [facility] 09/26/2021 10:44:56 07/08/19 06 Total hysterectomy completed Bob Richmond PA-C Attn: Accounting,[address] [facility], [place], [address], [facility] 09/26/2021 10:43:43 esophageal hiatus hernia repair completed Bob Richmond PA-C Attn: Accounting,[address] [facility], [place], [address], [facility] 09/26/2021 10:42:45 Gastric bypass for obesity completed Bob Richmond PA-C Attn: Accounting,[address] [facility], [place], [address], [facility] 09/26/2021 10:42:52 Breast augmentation w/implt completed Bob Richmond PA-C Attn: Accounting,[address] [facility], [place], [address], [facility] 09/26/2021 10:45:03 Imaging Results Imaging Date Name Status LastModified by Organization Details LastModified Time 02/02/2023 xr foot RT 3V completed [email or web address], [address], 02/04/2023 09:52:49 08/09/2023 electrocardiogram completed BARCODE Informa tion not available 08/12/2023 12:08:37 11/12/2023 xr foot RT 3V completed [email or web address] [address], [place], [address], 11/13/2023 09:02:35 Procedure Notes None recorded. Medical Equipment None Reported. Allergies No known drug allergies Medications Name Sig Start Date Stop Date Status Note LastModified by Organization Details LastModified Time eflornithin e 14%, hyaluronic acid 0.5% topical gel apply TO AREAS of UNWANTED HAIR growth TWICE DAILY active Not Available Not Available No t Available hydroquinon e 8% topical gel APPLY TO THE AFFECTED AREA(S) TWICE DAILY for 2 months NEEDED 08/09 completed Not Available Not Available Not Available trazodone 50 mg tablet Take 1 tablet every day by oral route at bedtime for 90 days. 08/09 completed Not Available Not Available Not Available azithromyci n 250 mg tablet 08/03 completed Not Available Not Available Not Available benzonatate 200 mg capsule TAKE 1 CAPSULE BY MOUTH THREE TIMES DAILY 02/23 completed Not Available Not Available Not Available hydrocodone 5 mg-acetamin ophen 325 mg tablet TAKE 1 TABLET BY MOUTH EVERY 6 HOURS NEEDED FOR PAIN 11/13 completed Not Available Not Available Not Available spironolact one 100 mg tablet Take 1 tablet every day by oral route for 90 days. active Not Available Not Available No t Available penicillin V potassium 500 mg tablet TAKE 1 TABLET BY MOUTH EVERY 12 HOURS FOR 10 DAYS active Not Available Not Available No t Available tretinoin 0.05 % topical cream active Not Available Not Available Not Available meloxicam 7.5 mg tablet Take 1 tablet every day by oral route for 30 days. active Not Available Not Available No t Available betamethaso ne acetate and sodium phos 6 mg/mL suspension for injection Take 6 mg by injection route. 02/26 completed Peyman ker, RMA Not Available Not Available Not Available methocarbam ol 750 mg tablet 08/03 completed Not Available Not Available Not Available trazodone 100 mg tablet TAKE 1 TABLET BY MOUTH EVERY DAY AT BEDTIME 08/09 completed Not Available Not Available Not Available cephalexin 500 mg capsule TAKE ONE CAPSULE BY MOUTH FOUR TIMES DAILY 08/09 completed Not Available Not Available Not Available erythromyci n 5 mg/gram (0.5 %) eye ointment APPLY THIN LAYER IN RIGHT EYE EVERY 6 HOURS FOR 7 DAYS 02/08 completed Not Available Not Available Not Available trazodone 150 mg tablet Take 1 tablet every day by oral route at bedtime for 30 days. active Not Available Not Available No t Available neomycin-po lymyxin-dex ameth 3.5 mg/mL-10,00 0 unit/mL-0.1 % eye drops SHAKE LIQUID AND INSTILL 1 DROP IN RIGHT EYE FOUR TIMES DAILY FOR 5 DAYS 02/26 completed Not Available Not Available Not Available lidocaine 5 % topical patch UNWRAP AND APPLY 1 PATCH TO SKIN DAILY FOR 30 DAYS. REMOVE AND DISCARD PATCH WITHIN 12 HOURS OR DIRECTED BY MD 08/03 completed Not Available Not Available Not Available zolpidem 5 mg tablet active Not Available Not Available No t Available gabapentin 100 mg capsule 09/26 completed Not Available Not Available Not Available albuterol sulfate HFA 90 mcg/actuati on aerosol inhaler INHALE 2 PUFFS BY MOUTH EVERY 4 HOURS NEEDED 08/03 completed Not Available Not Available Not Available ketorolac 60 mg/2 mL intramuscul ar solution Inject 60 mg every 6 hours by intramusc ular route. 02/26 [facility] Not Available Not Available Not Available clobetasol 0.05 % scalp solution 08/09 completed Not Available Not Available Not Available cefdinir 300 mg capsule TAKE 1 CAPSULE BY MOUTH EVERY 12 HOURS 09/26 completed Not Available Not Available Not Available fluticasone propionate 50 mcg/actuati on nasal spray,suspe nsion USE 2 SPRAYS NASALLY ONCE DAILY FOR 30 DAYS 09/26 completed Not Available Not Available Not Available sertraline 50 mg tablet Take 1 tablet every day by oral route. active Not Available Not Available No t Available naproxen 500 mg tablet Take 1 tablet twice a day by oral route. active Not Available Not Available No t Available diazepam 5 mg tablet Take one tablet prior to upcoming flights. Do not drive while taking this medicatio n. active Not Available Not Available No t Available amoxicillin 875 mg-ashely martinez clavulanate 125 mg tablet TAKE 1 TABLET BY MOUTH EVERY 12 HOURS FOR 7 DAYS 09/26 completed Not Available Not Available Not Available Vitamin B-12 1,000 mcg tablet 09/26 completed Not Available Not Available Not Available minoxidil 2 % topical solution APPLY 1 MILLILITE R BY TOPICAL ROUTE 2 TIMES PER DAY , EVERY DAY, DIRECTLY ONTO THE SCALP IN THE HAIR LOSS AREA 08/09 completed Not Available Not Available Not Available cyclobenzap rine 5 mg tablet 02/26 completed Not Available Not Available Not Available zinc active Not Available Not Availa ble Not Available biotin active Not Available Not Availa ble Not Available B12 active Not Available Not Availa ble Not Available Nurtec ODT 75 mg disintegrat ing tablet Take by oral route for 8 days. active Not Available Not Available No t Available Ashleigh COVID-19 Home Test kit 01/23 completed Not Available Not Available Not Available Paxlovid 300 mg (150 mg x 2)-100 mg tablets in a dose pack Take 1 dose pk twice a day by oral route for 5 days. 02/26 completed Not Available Not Available Not Available Vitals Date Recorded Body height Body temperature Heart rate Oxygen saturation Oxygen saturation in Arterial blood by Pulse oximetry Body mass index (BMI) Body weight Systolic blood pressure Diastolic blood pressure Provider Name and Address Organization Details Last Updated DateTime 3 161.29 cm 97.3 [degF] 72 /min 98 % 98 % 21.1 kg/m2 24723.6 8 g 117 mm[Hg] 75 mm[Hg] Priscilla Nickerson MA [facility] 3 10:11:31 Date Recorded Body height Body mass index (BMI) Body weight Heart rate Oxygen saturation Oxygen saturation in Arterial blood by Pulse oximetry Body temperature Systolic blood pressure Diastolic blood pressure Provider Name and Address Organization Details Last Updated DateTime 3 161.29 cm 20.9 kg/m2 04330.6 8 g 67 /min 98 % 98 % 97.4 [degF] 121 mm[Hg] 82 mm[Hg] Gia Kim [facility] 3 15:03:27 Date Recorded Body height Body temperature Body mass index (BMI) Body weight Heart rate Provider Name and Address Organization Details Last Updated DateTime 08/09/2023 161.29 cm 97.3 [degF] 20.9 kg/m2 59440.08 g 62 /min Priscilla Nickerson MA [facility] 4 14:53:43 Date Recorded Systolic blood pressure Diastolic blood pressure Provider Name and Address Organization Details Last Updated DateTime 08/09/2023 110 mm[Hg] 78 mm[Hg] Bob Richmond PA-C Attn: Accounting,[address] [place], [address], [facility] 08/09/2023 15:38:40 Date Recorded Body height Body temperature Body mass index (BMI) Body weight Heart rate Provider Name and Address Organization Details Last Updated DateTime 11/14/2023 161.29 cm 97.9 [degF] 20.9 kg/m2 57981.08 g 60 /min Priscilla Nickerson MA [facility] 4 11:12:19 Date Recorded Systolic blood pressure Diastolic blood pressure Provider Name and Address Organization Details Last Updated DateTime 11/14/2023 134 mm[Hg] 88 mm[Hg] Bob Richmond PA-C Attn: Accounting,[address] [place], [address], [facility] 11/14/2023 11:28:48 Date Recorded Body height Body temperature Body mass index (BMI) Body weight Heart rate Systolic blood pressure Diastolic blood pressure Provider Name and Address Organization Details Last Updated DateTime 4 161.29 cm 99.1 [degF] 21.1 kg/m2 80258.6 8 g 65 /min 127 mm[Hg] 83 mm[Hg] Nasra Dia MA [facility] 4 16:27:52 Social History Question Answer Notes LastModified by Organizat ion Details LastModified Time Tobacco Smoking Status Former Smoker Priscilla Nickerson MA null, [facility] 09/26/2021 10:20:13 What Was The Date Of Your Most Recent Tobacco Screening? 08/09/2023 [email or web address] Information not available 08/09/2023 How Many Years Have You Smoked Tobacco? 5 [email or web address] Information not available 09/26/2021 Do You Or Have You Ever Used Any Other Forms Of Tobacco Or Nicotine? No [email or web address] Information not available 09/26/2021 Sex: Unknown Functional Status None recorded. Mental Status None recorded. Family History Relationship Description Onset Age of this Age Resolved Age Notes LastModified by Organization Details LastModified Time Mother Malignant tumor of ovary Not available 2021 10:48:20 Mother Diabetes mellitus [email or web address] Not available 2021 10:48:26 Mother Transient cerebral ischemia [email or web address] Not available 2021 10:48:37 Mother Osteoporosis [email or web address] Not avai lable 09/26/2021 10:48:47 Mother Asthma Not available 09/26/2021 10:48:53 Father Cerebrovascu lar accident [email or web address] Not available 10:49:15 Father Essential hypertension Not available 10:49:24 Medical History No medical history recorded. Gynecological HistoryNo gynecological history recorded. Obstetrics History GPAL:G 0 P 0 0 0 0 Immunizations Vaccine Type Date Status Note Provider Nam e and Address Organization Details Recorded Time COVID-19, mRNA, LNP-S, PF, 50 mcg/0.5 mL dose 08/12/2020 completed Gia Judy [place], [place] [facility] 05/10/2023 16:07:48 COVID-19, mRNA, LNP-S, PF, 50 mcg/0.5 mL dose 08/18/2021 completed G[place] Judy [place], [place] [facility] 05/10/2023 16:07:48 Influenza, split virus, quadrivalent, PF 04/24/2022 completed Nasra Dia [place], [place] [facility] 04/24/2022 17:25:55 Influenza, split virus, quadrivalent, PF 05/10/2023 completed Bob Richmond PA-C Attn: Accounting,[address] [facility], [place], [address], [place] [facility] 06/05/2023 19:43:09 Past Encounters Encounter ID Performer Location Encounter Start Date Encounter Closed Date Diagnosis/Indication Diagnosis SNOMED-CT Code Diagnosis ICD10 Code Diagnosis Note [id number] Lily Thomas, [employer] [facility] ([address]) [address] [facility] [place] [address] 08/15/2021 15:17:05 08/18/2021 13:04:06 Insomnia 988001545 G47.00 medication refillfu c pcp as scheduled for new pt appt on 09/26report to ED if experience CP, SOB, BOWEN or the like [id number] DHARMESH [facility] ([facility]) [address] [place] [address] 09/26/2021 10:00:34 10/04/2021 09:55:38 Adult health examination 504927453 Z00.00 We will check some routine labs today. I encouraged pt to eat low-fat, low-salt diet and exercise most days of the week. Screening mammography 24 984301 Z12.31 Pt reports she hasn't had a mammogram in several years and is overdue. Insomnia 649567324 G47.0 9 We spent some time discussing good sleep hygeine today including limiting screen time before bed, limiting caffeine consumptio n, not reading or watching tv in bed and starting a regular exercise regimen. Will continue trazodone for now. Iron defic iency anemia 63404818 D50.9 Could not tolerate oral iron and gets regular iron infusions with hematology . Referral placed today. Overweight 286497338 E66 .3 Diagnosis correction : BMI is normal at 21.5. 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 Low suspicion of infection given nontender and has been present for years. Will obtain US and refer to ENT. History of malignant neoplasm of cervix 970992649 Z85.41 C55 Pt reports history of uterine and cervical cancer s/p hysterecto my in 2005. Has not been following with [facility] in at least the past year. Referral placed today. Bunion [id number] M21.61 9 Will refer to podiatry to definitive care. [id number] DHARMESH Richardson ([facility]) [address] [place] [address] 01/01/2022 10:56:48 01/02/2022 11:27:25 COVID-19 [id number] U07.1 Given asthma history, pt is considered high risk for serious complicati ons. We discussed risks and benefits of using Paxlovid under EAU and I answered all pt questions. She wishes to proceed with treatment with Paxlovid. Will also Rx KANU inhaler and benzonatat e for wheezing/c ough as needed. Go to ER immediatel y if symptoms worsen or breathing problems develop. She expressed understand ing and agreed to this treatment plan. GUIDELINES FOR STAYING HOME: - Separate yourself from others in your household, do not share anything (e.g. utensils, phone) and stay at home for at least: - 10 days, and for 3 days with no fever (without fever reducing medicine) and improvemen t of respirator y symptoms (cough, shortness of breath) whichever is longer. - funeral home associate if you can. GUIDELINES FOR RETURNING TO THE WORKPLACE: - Notify your wet pour supervisor . - Return to work after 10 days, and for 3 days with no fever (without-f ever reducing medicine) and improvemen t of respirator y symptoms (cough, shortness of breath) whichever is longer. - Stay 6 feet away from co-workers and visitors, if possible. - If it is difficult to stay 6 feet away, wear a mask. [id number] DHARMESH Richardson FP ([facility]) [address] [place] [address] 01/23/2022 15:24:13 01/25/2022 09:16:37 Dyspnea on exertion [id number] R06.09 Symptoms are greatly improved and likely sequela of covid infection. Still, it would be prudent to have cardiology follow up given her abnormal ekg at the ER. Referral placed today. Insomnia [id number] G47.0 9 We spent some time discussing good sleep hygeine today including limiting screen time before bed, limiting caffeine consumptio n, not reading or watching tv in bed and starting a regular exercise regimen. Will continue trazodone. [id number] DHARMESH Richardson FP ([facility]) [address] [place] [address] 04/24/2022 14:58:10 04/26/2022 09:11:57 Neck pain 39073612 M54.2 M25.511 Reviewed ER imaging negative for fracture or dislocatio n. Physical exam more suggestive of soft tissue injury / trapezius strain. Counseled pt on RICE therapy, home exercises/ stretches and will refer to PT today. Pt advised to call if no improvemen t in 2-3 weeks or sooner if worsening. She expressed understand ing and is agreeable to this plan. [id number] DHARMESH Richardson FP ([facility]) [address] [place] [address] 08/03/2022 10:48:19 08/06/2022 11:55:11 Migraine 17258374 G43.909 Pt advised to go to ER if red flag symptoms develop (thundercl ap headache, neuro deficits, etc). Pt had adverse effects to Triptans and Amitripyli ne in the past. So, will start Nurtec today. Pt advised to take medication at first sign of migraines. Do not exceed 1 tablet in 24 hours. Pt advised to rest in a quiet dark room when migraines occur. Also encouraged to keep migraine diary to try to identify triggers. Given that her symptoms are worsening both in severity and frequency, will obtain MRI for further eval and consider neuro referral Pain of le ft elbow joint [id number] 5892866 M25.522 No improvemen t with PT. Will obtain MRI as recommende d by therapist and refer to hand specialist . Loss of hair [id number] L 65.9 Discussed likely diagnosis with pt, answered all questions and provided educationa l handout. Pt expressed understand ing and agreed to treatment plan. Will trial topical minoxidil, check labs below and refer to derm for further eval. Pain of ri ght elbow joint [id number] 1318970 M25.525 [id number] Lily Thomas, ISABEL-ASYA peterson FP ([facility]) [address] [place] [address] 11/27/2022 10:20:00 12/07/2022 11:09:03 Pain of left shoulder joint [id number] 4220306 M25.512 imaging pending. will tailor treatment accordingl y upon receipt.fu neurology appt. as previously scheduled for 12/10/22RICE encouraged celestone and toradol given per ma per vo Chronic pain 82062514 G8 9.29 RICE encouraged fu w/ PCP in 2-4 weeks/prn [id number] DHARMESH Richardson [facility] ([facility]) [address] [place] [address] 02/08/2023 15:38:34 02/19/2023 14:12:27 COVID-19 [id number] U07.1 Given asthma history, pt is considered high risk for serious complicati ons. We discussed risks and benefits of using Paxlovid under EAU and I answered all pt questions. She wishes to proceed with treatment with Paxlovid. Will also Rx KANU inhaler and benzonatat e for wheezing/c ough as needed. Go to ER immediatel y if symptoms worsen or breathing problems develop. She expressed understand ing and agreed to this treatment plan. GUIDELINES FOR STAYING HOME: - Separate yourself from others in your household, do not share anything (e.g. utensils, phone) and stay at home for at least: - 10 days, and for 3 days with no fever (without fever reducing medicine) and improvemen t of respirator y symptoms (cough, shortness of breath) whichever is longer. - funeral home associate if you can. GUIDELINES FOR RETURNING TO THE WORKPLACE: - Notify your wet pour supervisor . - Return to work after 10 days, and for 3 days with no fever (without-f ever reducing medicine) and improvemen t of respirator y symptoms (cough, shortness of breath) whichever is longer. - Stay 6 feet away from co-workers and visitors, if possible. - If it is difficult to stay 6 feet away, wear a mask. [id number] DHARMESH Richardson [facility] ([facility]) [address] [place] [address] 02/26/2023 10:01:22 02/27/2023 10:11:37 Insomnia 400832907 G47.09 Trazodone working well for sleep initiation but pt waking up after just a few hours. Will increase to 100mg daily at bedtime and consider further increase in a few weeks if needed. I answered all pt questions, they expressed understand ing and are agreeable to this plan. Anemia [id number] D64.9 Will check labs listed below and address as indicated. Cholesterol screening 27 7570757 Z13.220 Screening for malignant neoplasm of colon 188037415 Z12.11 [id number] DHARMESH Richardson ([facility]) [address] [place] [address] 05/10/2023 14:28:40 06/06/2023 09:25:34 Administration of influenza vaccine 74267690 Z23 Screening for malignant neoplasm of colon 694361974 Z12.11 Pain of le ft shoulder joint 0262978264 9351416 M25.512 Recommende d pt proceed with physical therapy as directed by orthopedic s. Should continue f/u with ortho if no improvemen t. [id number] DHARMESH Richardson FP ([facility]) [address] [place] [address] 08/09/2023 14:42:50 08/13/2023 10:26:42 Pre-surgery evaluation 212719605 Z01.818 EKG unremarkab le. Will check labs listed below. Pt is average risk for her upcoming procedure and has no known contraindi cations. Cholesterol screening 27 5132950 Z13.775 [id number] DHARMESH Richardson ([facility]) [address] [place] [address] 11/14/2023 11:00:36 11/15/2023 09:13:20 Fracture of phalanx of foot 02133195 S92.911A Pain well controlled with naproxen, will refill today. No s/s of neurovascu lar compromise . Will have pt return in six weeks for repeat XR if no improvemen t. Sooner if worsening. Continue to wear surgical shoe for six weeks. Fear of flying 565132456 F40.243 May take diazepam before flight. Do not drive while taking this medication . [id number] TOM Valera FP ([facility]) [address] [place] [address] 12/19/2023 16:15:36 12/20/2023 12:14:25 Fracture of phalanx of foot 13790417 S92.911A Pain well controlled with naproxen,. No s/s of neurovascu lar compromise RTC . Sooner if worsening. Continue to wear surgical shoe for six weeks. Alopecia 39298607 L65.9 Health Concerns Section Related Observation LastModified by Organization Detai ls LastModified Time None Recorded Concern Status LastModified by Organization Details LastModified Time None Recorded Advance Directives Directive None Recorded Payers Encounter Date Sequence Insurance Name Policy Number Policy Stanton Covered Member ID Stanton Member ID Guarantor Name 02/26/2023 1 FOR LIFE () Clara Juanis [id number] Clara Olivarez 05/10/2023 1 [employer] - DOS PRIOR TO 2024 - [employer] () Clara Alfredo Olivarez [id number] Clara Olivarez 08/09/2023 1 [employer] - DOS PRIOR TO 2024 - [employer] () Clara Alfredo Olivarez [id number] Clara Olivarez 11/14/2023 1 FOR LIFE () Clara Olivarez [id number] Clara Olivarez 12/19/2023 1 [employer] - DOS PRIOR TO 2024 - [employer] () Clara Schwarzkins [id number] Clara Juanis Notes Date Note Type Note Provider Name and Address Organization Details Recorded Time 02/26/2023 text/html Clara is here to day for insomnia follow up and labs. Pt reports she is not sleeping well and would like to increase the dose of her trazodone. She states she is falling asleep just fine, but then wakes up after just 2-3 hours and cannot fall back asleep. She has a history of iron deficiency anemia and would like labs checked as she has been craving ice. She is otherwise doing well and denies fever, SOB, wheezing, CP, BOWEN, hemoptysis, abdominal pain, N/V/D/C or rash. Bob Richmond PA-C Attn: Accounting[address] [facility], [place], [address], [place] [facility] 02/26/2023 10:34:17 05/10/2023 text/html Clara is here to day for follow up on her left arm pain. She continues to see orthopedics and was recently referred to physical therapy for lateral epicondylitis by ortho but has not yet started. She is otherwise doing well and would like to get a flu shot today. She denies fever, SOB, wheezing, CP, BOWEN, hemoptysis, abdominal pain, N/V/D/C or rash. Bob Richmond PA-C Attn: Accounting[address] [place], [address], [facility] 06/05/2023 19:43:27 08/09/2023 text/html Clara is here to day for surgical clearance for her upcoming left shoulder arthroscopy on 09/03/23. She is also due for yearly cholesterol screening. She reports feeling generally well today, in usual state of health, and has no specific concerns at this time. Pt denies fever, SOB, wheezing, CP, BOWEN, hemoptysis, abdominal pain, N/V/D/C or rash. Bob Richmond PA-C Attn: Accounting[address] [place], [address], [facility] 08/09/2023 15:40:39 11/14/2023 text/html Clara is here to day for urgent care follow up. Pt was moving her heavy couch when she stubbed her right second toe on the leg four days ago. Urgent care imaging showed avulsion fracture. Pt given surgical shoe and dylan taped toe. Today pain is improved. She has FROM with pain and no erythema, edema or loss of sensation. She is also requesting refill of Valium for an upcoming flight. Pt reports feeling generally well today, in usual state of health, and has no other concerns at this time. Pt denies fever, SOB, wheezing, CP, BOWEN, hemoptysis, abdominal pain, N/V/D/C or rash. Bob Richmond PA-C Attn: Accounting[address] [place], [address], [facility] 11/14/2023 11:32:32 12/19/2023 text/html 48 yo female presented today for another urgent care F/U for the broken second toe and wants a STAT referral to podiatry at appt on 12/20/23 and dermatology for Juanjo osborne.Today pain is improved. denies pain and no erythema, edema or loss of sensation.Pt reports feeling generally well today, in usual state of health, and has no other concerns at this time. Pt denies fever, SOB, wheezing, CP, BOWEN, hemoptysis, abdominal pain, N/V/D/C or rash. URSULA Rivas NP Attn: Accounting[address] [place], [address], [facility] 12/19/2023 16:56:15 OBGyn Episode No OBEpisode recorded.
--- OUTSIDE RECORDS SUMMARY | 2024-08-18 16:52 | XMS_ITS | Continuity of Care Document ---
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 Unknown, Provider [id number] Merck (MSD) complet ed hepatitis B vaccine, adult dosage DoD tuberculin skin test; purified protein derivative solution, intradermal 1 2004 Unknown, Provider [id number] Sanofi Pasteur (PMC) complet ed tuberculi n skin test; purified protein derivativ e solution, intraderm al DoD influenza virus vaccine, whole virus 2001 zzLef t Arm [id number] 16 sanofi pasteur complet ed influenza virus vaccine, whole virus 05/05/02 Given Ambulat ory Pharmac y influenza virus vaccine, whole virus 1 2001 Unknown, Provider [id number] Sanofi Pasteur (PMC) complet ed influenza virus vaccine, whole virus DoD Results Combined list of recent chemistry, hematology and other laboratory results from Department of Defense and Veterans Affairs, ranging from 15 months to all on record, depending upon the facility. Order Name Results Value Reference Range Date Interpretation Specimen Comments Source Hematolog y Hemoglobin 12.8 g/dL 11.2 - 15.7 12/29 [facility] Hematolog y MCH 29.6 pg 25.7 - 32.2 12/29 [facility] Hematolog y MCHC 33.5 g/dL 31.0 - 34.0 12/29 [facility] Hematolog y MCV 88.3 fL 81.0 - 99.0 12/29 [facility] Hematolog y MPV 7.4 fL 6.5 - 12.0 12/29 [facility] Hematolog y Platelets 269 K/mcL 150 - 400 12/29 [facility] Hematolog y RBC 4.32 10^6/u L 3.80 - 5.74074 12/29 [facility] Hematolog y RDW 13.5 % 11.6 - 14.4 12/29 [facility] Hematolog y WBC 4.6 K/mcL 4.5 - 11.0 12/29 [facility] Hematolog y Hematocrit 38.2 % 34.1 - 44.9 12/29 N [facility] Chemistry Vit B12 Lvl.LC 702 pg/mL 12/29 [facility] Group Chemistry Folate.LC 9.0 ng/mL 12/29 Result Comment: A serum folate concentratio n of less than 3.1 ng/mL is considered to represent clinical deficiency. Performed At: [facility] [address], [place] [id number] Tomer Nieto MD Ph:[phone] [facility] Group Chemistry Vitamin B6.LC 6.0 ug/L 12/29 Result Comment: This test was developed and its performance characterist ics determined by [facility]. It has not been cleared or approved by the Food and Drug Administrati on. Performed At: [facility] [id number] Daniel Talavera MD Ph:[phone] Medical Group Chemistry Iron 100.7 ug/dL 50.0 - 170.0 12/29 N [facility] Chemistry Ferritin Lvl 70.7 ng/mL 8.0 - 252.0 12/29 N [facility] Chemistry Albumin 4.3 g/dL 3.5 - 5.0 12/29 N [facility] Alk Phos 80.80 U/L 6.00 - 116.00 12/29 N [facility] ALT 26.60 U/L 5.00 - 35.00 12/29 N [facility] Chemistry AST 19.40 U/L 13.00 - 35.00 12/29 N [facility] Bilirubin Direct 0.1 mg/dL 0.0 - 0.4 12/29 N [facility] Bilirubin Total 0.36 mg/dL 0.00 - 1.20 12/29 N [facility] Chemistry BUN 10.6 mg/dL 7.0 - 17.0 12/29 N [facility] Chemistry Calcium 9.1 mg/dL 8.4 - 10.2 12/29 N [facility] Chemistry Chloride 101.50 mmol/L 98.00 - 107.00 12/29 N [facility] Chemistry CO2 32.9 mmol/L 21.0 - 30.0 12/29 H [facility] Chemistry Glucose Lvl 82.70 mg/dL 70.00 - 100.00 12/29 N [facility] Chemistry Potassium Lvl 4.1 mmol/L 3.4 - 5.0 12/29 N [facility] Chemistry Sodium 139.70 mmol/L 137.00 - 145.00 12/29 [facility] Protein Total 6.9 mg/dL 6.4 - 8.9 12/29 N [facility] Chemistry Creatinine Level 0.67 mg/dL 0.55 - 1.30 12/29 N [facility] Chemistry Globulin 2.6 g/dL 2.4 - 3.5 12/29 N [facility] Chemistry AGAP 5.3 mmol/L 3.0 - 11.0 12/29 N [facility] Chemistry BUN/Creat Ratio 16 12/29 [facility] Group Chemistry A/G Ratio 1.7 ratio 1.0 - 2.0 12/29 N [facility] Chemistry Magnesium Lvl 2.1 mg/dL 1.6 - 2.3 12/29 N [facility] Group Hematolog y Basophil % Auto 1.0 % 0.0 - 3.0 12/29 N [facility] Hematolog y Lymphocyte % Auto 42.7 % 16.0 - 43.5 12/29 [facility] Group Hematolog y Monocyte % Auto 8.1 % 4.5 - 12.5 12/29 [facility] Group Hematolog y Neutrophil % Auto 45.2 % 43.4 - 76.6 12/29 N [facility] Group Hematolog y [place] Absolute 0.4 0.2 - 0.9 12/29 N [facility] Group Hematolog y Eos Absolute 0.1 0.0 - 0.5 12/29 N [facility] Group Hematolog y Baso Absolute 0.0 0.0 - 0.2 12/29 N [facility] Hematolog y Neutro Absolute 2.1 1.6 - 6.1 12/29 N [facility] Hematolog y Lymph Absolute 2.0 1.0 - 3.0 12/29 N [facility] Hematolog y Eosinophil % Auto 3.0 % 0.7 - 7.0 12/29 N [facility] Group Hematolog y nRBC % Auto 0.0 % 0.0 - 0.4 12/29 N [facility] Group Hematolog y nRBC Absolute 0 12/29 [facility] Chemistry eGFR AA 121 mL/min 12/29 H Interpretive Data: Interpretati ons: >= 60 mL/min/1.73m 2 = Normal or mildly decreased GFR 30-59 mL/min/1.73m 2 = Moderately decreased GFR 15-29 mL/min/1.73m 2 = Severely decreased GFR + < 15 mL/min/1.73m 2 = Kidney failure This is an estimated GFR (Glomerular Filtration Rate) only. The value has been derived from the Chronic Kidney Disease - Epidemiology (CKD-Epi) Collaboratio n Equation. The calculation automaticall y takes patient sex into account, but [facility] cannot automaticall y adjust the formula for patients, therefore two GFR results are reported -- GFR-NON AA and GFR-AA. As with all estimations, results may not be valid for certain sub-groups including: pediatric patients (0-17 years old), severely hypoalbumine arelis patients, patients not in steady state (including acute renal failure), dialysis patients, and patients with atypical body habitus. Results will not be reported on patients under 18 years of age. Some pharmacologi sangita therapeutics are dosed based on older versions of the eGFR. Where deemed necessary, refer to Pharmacy for assistance or more information. Medical Group Chemistry eGFR Non-AA 105 mL/min 12/29 H Interpretive Data: Interpretati ons: >= 60 mL/min/1.73m 2 = Normal or mildly decreased GFR 30-59 mL/min/1.73m 2 = Moderately decreased GFR 15-29 mL/min/1.73m 2 = Severely decreased GFR + < 15 mL/min/1.73m 2 = Kidney failure This is an estimated GFR (Glomerular Filtration Rate) only. The value has been derived from the Chronic Kidney Disease - Epidemiology (CKD-Epi) Collaboratio n Equation. The calculation automaticall y takes patient sex into account, but [facility] cannot automaticall y adjust the formula for patients, therefore two GFR results are reported -- GFR-NON AA and GFR-AA. As with all estimations, results may not be valid for certain sub-groups including: pediatric patients (0-17 years old), severely hypoalbumine arelis patients, patients not in steady state (including acute renal failure), dialysis patients, and patients with atypical body habitus. Results will not be reported on patients under 18 years of age. Some pharmacologi sangita therapeutics are dosed based on older versions of the eGFR. Where deemed necessary, refer to Pharmacy for assistance or more information. [facility] Vital Signs Combined list of inpatient and outpatient Vital Signs from Department of Defense and Veterans Affairs, ranging from 12 months to all on record, depending upon the facility. Vital Sign Value Date Comments Source Systolic Blood Pressure 116 mm[Hg] 12/30/19 21 15:22:[facility] Diastolic Blood Pressure 76 mm[Hg] 021 15::[facility] Mean Arterial Pressure, Calc 89 mm[Hg] 12/29/2020 15:22:[facility] Peripheral Pulse Rate 64 bpm 12/29/2020 15:22:[facility] Respiratory Rate 16 br/min 12/29/2020 15::[facility] Temperature Tympanic 36.6 Nusrat 12/29/2020 15:22:[facility] BP Site Right arm 12/29/2020 15:22:[facility] Blood Pressure Manual Automatic 12/29/2020 15:[facility] Systolic Blood Pressure 116 mm[Hg] 01/06/20 21 15:30:[address] Diastolic Blood Pressure 75 mm[Hg] 021 15:30:[address] Mean Arterial Pressure, Calc 89 mm[Hg] 01/05/2021 15:30:[address] Peripheral Pulse Rate 57 bpm 01/05/2021 15:30:[address] [place] [address] Respiratory Rate 16 br/min 01/05/2021 15:30:[address] Temperature Oral 36.7 Nusrat 01/05/2021 15:30:00 [facility] Encounters Combined list of: 1) Encounters from Department of Veterans Affairs facilities going backup to the last 18 months, not all VA inpatient encounters are included; 2) Encounters from the Department of Defense facilities going backup to 280 months. Location Location Details Encounter Type Encounter Number Reason For Visit Attending Provider ADM Date DC Date Status Disposition Source [facility]) OUTPATIENT [id number] cold.jose r dyache x 1 wk JOSIEESTRELLITA Nakul 10/05 Sick at Home/Quarter s [facility]) [facility]) OUTPATIENT [id number] LFT HAND MAY BE BROKEN WANTS XRAY. ELVIRA GREENFIELD 11/13 Released w/o Limitations [facility]) OUTPATIENT [id number] F/U TO XRAY ELVIRA GREENFIELD 11/20 Released w/o Limitations [facility]) [facility]) OUTPATIENT [id number] PAP ELVIRA GREENFIELD 03/28 Released w/o Limitations [facility]) [facility]) TELE CONSULT [id number] FYI OF TO MARIA TERESA BLACK 07/16 [facility]) [facility]) TELE CONSULT [id number] ABD ELVIRA Gaspar 07/16 [facility]) [facility]) TELE CONSULT [id number] referra MARIA TERESA Vázquez 08/20 [facility]) [facility]) OUTPATIENT [id number] cut finger KIN Mg, FE W 09/04 Released w/o Limitations [facility]) [facility]) TELE CONSULT [id number] cough MARIA TERESA JONES 10/01 [facility]) [facility]) TELE CONSULT [id number] poss stye on l eye PRATEEK JONES 10/11 Referred for Appointment [facility]) [facility]) TELE CONSULT [id number] MARIA TERESA JONES 11/20 Released to Self Care [facility]) [facility]) TELE CONSULT [id number] REFILL MED MARIA TERESA JONES 12/10 Medication Refill Forwarded [facility]) [facility]) OUTPATIENT [id number] FE LOZA W 12/31 Released w/o Limitations [facility]) [facility] OUTPATIENT [id number] RTN EXAM ANIVAL TRACEY 07/29 Released w/o Limitations [facility]) [facility] OUTPATIENT [id number] RTN EXAM SHEREE GARCIA 08/29 Released w/o Limitations [facility]) [facility]) OUTPATIENT [id number] sore throat SAL MOODY 02/12 Released w/o Limitations [facility]) [facility](Phy sical Therapy) OUTPATIENT [id number] L knee sprain IVAN DELEON 06/21 Released w/o Limitations [facility](P hysical Therapy ) [facility](Phy [facility]ical Therapy) OUTPATIENT [id number] JAMA JARAMILLO 06/28 Released w/o Limitations [facility](P [facility]ysical Therapy ) [facility](Phy sical Therapy) OUTPATIENT [id number] SANJUANITA SANCHEZ 07/05 Released w/o Limitations [facility](P hysical Therapy ) [facility]) OUTPATIENT [id number] EYE EXAM CAROLINESHEREE PENNY Cristofer 03/16 Released w/o Limitations [facility]) [facility]) OUTPATIENT [id number] routine VINAY SOLOMON 06/14 Released w/o Limitations [facility]) [facility](Roseann le Not Used) TELE CONSULT [id number] Inbound record JOHNNIE DALE Livier 12/05 [facility](B eale Not Used) [facility]) OUTPATIENT [id number] gastric bypass f/u, referra l-new to SARAI REICH 01/27 Released w/o Limitations [facility]) [facility] Medical [facility]) TELE CONSULT [id number] Notes Entered by: Juanjo SIERRA 17 Mar 2012 1300 ------- ------- ------- ------- -- medicat ion refill/ PHIL Henry 03/17 [facility]) [facility]) TELE CONSULT [id number] Notes Entered by: Juanjo SIERRA 16 May 2012 0747 ------- ------- ------- ------- -- med refill/ MARINA Joshi 05/16 [facility]) [facility]) OUTPATIENT [id number] insomni SARAI Villalobos 06/06 Released w/o Limitations [facility]) [facility]) OUTPATIENT [id number] INH MI FLEMING 12/17 Released w/o Limitations [facility]) TELE CONSULT [id number] Notes Entered by: Georgina DEUTSCH 23 Dec 2014 0909 ------- ------- ------- ------- -- Lab f/u (+Quant iferon) MESERET LUO 12/23 [facility]) [facility]) OUTPATIENT [id number] F/U Positiv e QFT - To Discuss LTBI Treatme nt Options OFELIA ISBELL 12/27 Released w/o Limitations [facility]) [facility]) TELE CONSULT [id number] Notes Entered by: LENARD FLEMING 11 Apr 2015 1723 ------- ------- ------- ------- -- Latent TB follow up MI FLEMING 04/12 [facility]) [facility] OUTPATIENT [id number] Medicat ion check RICKIE CHOU 03/19 Released w/o Limitations [facility]) [facility]) OUTPATIENT [id number] PAP - hyst in 2004 for cancer ADAM BULLOCK 03/21 Released w/o Limitations [facility]) [facility]) OUTPATIENT [id number] Mild intermi ttent asthma, uncompl icated RIKI MARTINEZ 03/21 Released w/o Limitations [facility] Tm A-AD) TELE CONSULT [id number] Notes Entered by: KIMBERLY BLUE 02 Apr 2017 1217 ------- ------- ------- ------- -- Lab results SAMY BANKS 04/02 Referred for Appointment [facility]) TELE CONSULT [id number] Notes Entered by: ROYA HONG 10 Apr 2017 1427 ------- ------- ------- ------- -- ER VISIT JAMAAL GROSSMAN 04/10 Other Not Elsewhere Classified [facility] Tm A-AD) OUTPATIENT [id number] Anxiety f/u RICKIE CHOU 04/12 Released w/o Limitations [facility]) TELE CONSULT [id number] Notes Entered by: TURCIOS 23 Jul 2017 1043 ------- ------- ------- ------- -- Pos Quant JAMA RICH 07/23 Released to Self Care [facility]( [facility]) [facility]) TELE CONSULT [id number] Notes Entered by: Livier RESENDEZ 24 Jul 2017 1059 ------- ------- ------- ------- -- Normal Labs and Chest Xray JAMA RICH 07/24 Released to Self Care [facility]) [facility] Tm A-AD) TELE CONSULT [id number] Notes Entered by: SANTIAGO COPELAND 25 Jul 2017 0947 ------- ------- ------- ------- -- Medicat ion Refill - 1 week left JAMAAL GROSSMAN 07/25 Other Not Elsewhere Classified [facility] Tm A-AD) [facility] Tm A-AD) OUTPATIENT [id number] Medicat ion refill - Anxiety - PRATEEK MORGAN 07/29 Released w/o Limitations [facility]) TELE CONSULT [id number] Notes Entered by: Erin RICH 29 Jul 2017 0851 ------- ------- ------- ------- -- JAMA Navarro 07/29 Released to Self Care [facility]( [facility]) [facility] Tm A-AD) TELE CONSULT [id number] Notes Entered by: CHRIS FORDE 28 Oct 2017 1317 ------- ------- ------- ------- -- Ashly huff request JAMAAL GROSSMAN 10/28 Other Not Elsewhere Classified [facility]m A-AD) [facility] Tm A-AD) TELE CONSULT [id number] Notes Entered by: SPENCER CARR 04 Dec 2017 0751 ------- ------- ------- ------- -- Urgent care follow- up JAMAAL GROSSMAN 12/04 Other Not Elsewhere Classified [facility] Tm D-AD) OUTPATIENT [id number] F/U for cold symptom s KIANA Beck 12/04 Released w/o Limitations [facility] Tm D-AD) [facility] Tm A-AD) TELE CONSULT [id number] Notes Entered by: LAVELL RIZVI SA 18 Dec 2017 1342 ------- ------- ------- ------- -- LB-NETW ORK RESULTS - PAIN MANAGEM ENT 11/13/17 PRATEEK MORGAN 12/18 [facility] Tm A-AD) [facility] Tm A-AD) TELE CONSULT [id number] Notes Entered by: SPENCER CARR 13 Jan 2018 1014 ------- ------- ------- ------- -- ER follow- up YANELY OLIVER 01/13 Referred for Appointment [facility] Medical [facility] Tm A-AD) [address] [place] [address]([facility] Tm A-AD) OUTPATIENT [id number] ER F/U lt knee pain RONN MITCHELL 01/14 Released w/o Limitations [facility] Tm A-AD) [facility] Medical [facility]) TELE CONSULT [id number] Notes Entered by: SPNECER CARR 23 Jan 2018 0735 ------- ------- ------- ------- -- Appoint ment request ALFONZO PLASCENCIA 01/23 Referred for Appointment [facility]) [facility]) OUTPATIENT [id number] infecti on check MARIO ROCHA 01/23 Released w/o Limitations [facility]) [facility] Medical [facility]) TELE CONSULT [id number] Notes Entered by: Adelaide NATION 31 Jan 2018 0741 ------- ------- ------- ------- -- results YANELY OLIVER 01/31 Other Not Elsewhere Classified [facility]) [facility]m [facility]) TELE CONSULT [id number] Notes Entered by: KIMBERLY BLUE 10 Apr 2018 0842 ------- ------- ------- ------- -- ER F/U SOCRATES BANGURA 04/10 Released w/o Limitations [facility]) [facility]) OUTPATIENT [id number] ER f/u left chest/r ib/arm pain, hurt to breathe . PRATEEK MORGAN 04/10 Released w/o Limitations [facility]) [facility]m [facility]) OUTPATIENT [id number] Virtual RAD results [id number] PRATEEK MORGAN 04/18 Released w/o Limitations [facility]m [facility]) [facility] al [facility]) TELE CONSULT [id number] Notes Entered by: NANCY MAR 29 Apr 2018 0926 ------- ------- ------- ------- -- NANCY Fish 04/29 Other Not Elsewhere Classified [facility]) [facility]) OUTPATIENT [id number] 7 Sleepin g PRATEEK Miner 07/14 Released w/o Limitations [facility]m [facility]) [facility] OUTPATIENT [id number] 3 Fever SAVAGE BERNABE 10/15 Released w/o Limitations [facility]) [facility]m [facility]) OUTPATIENT [id number] Medicat ion renewal sleep and travel meds PRATEEK MORGAN 10/17 Released w/o Limitations [facility]m [facility]) [facility]) OUTPATIENT [id number] Notes Entered by: Ashley WISE 11 Nov 2018 1003 ------- ------- ------- ------- -- AZAIRAM JACKSON 11/11 Released w/o Limitations [facility]) [facility]m [facility]) OUTPATIENT [id number] F/U on medicat ion PRATEEK MORGAN 11/20 Released w/o Limitations [employer]([facility] [employer] OUTPATIENT [id number] Per PRATEEK Green 12/26 Released w/o Limitations [employer]([facility]-AD) [employer]([facility]) TELE CONSULT [id number] Notes Entered by: RUBI BLOOM 01 Jan 2019 0803 ------- ------- ------- ------- -- ER Follow up PRATEEK MORGAN 01/01 [facility] Tm A-AD) [employer]-AD) TELE CONSULT [id number] Notes Entered by: Juanjo MORGAN 07 Jan 2019 1556 ------- ------- ------- ------- -- Follow up PRATEEK MORGAN 01/07 [employer]([facility] Tm A-AD) [employer]([facility] Tm E Non-AD) OUTPATIENT [id number] Referra l for PodKATT Crabtree 02/23 Released w/o Limitations [employer]([facility] Tm E Non-AD) [employer]([facility] Team B Non-AD) TELE CONSULT [id number] Notes Entered by: ESTUARDO GUTIERREZ 17 Mar 2019 1544 ------- ------- ------- ------- -- Patient Call Back Request REJI CAMACHO 03/17 Referred for Appointment [employer]([facility] Team [facility] Non-AD) [employer]([facility] Team [facility] Non-AD) OUTPATIENT [id number] surgery clearan ce - surg May 2019 GAYLE REVELES 04/06 Released w/o Limitations [facility](F am Med Clinic Team B Non-AD) [facility](Fam Med Clinic Team B Non-AD) OUTPATIENT [id number] Notes Entered by: HAILY CHAVES 14 Apr 2019 1307 ------- ------- ------- ------- -- walk in UTI REJI CAMACHO 04/14 Released w/o Limitations [facility] am [facility] Clinic Team B Non-AD) [facility] Team B Non-AD) OUTPATIENT [id number] C/o flasnk pain with blood in urine s/p UA done on 04/14/20 19 GAYLE REVELES 04/14 Released w/o Limitations [facility] Team B Non-AD) [facility](Fam [facility] Team B Non-AD) TELE CONSULT [id number] Notes Entered by: DEANNA REVELES 16 Apr 2019 1353 ------- ------- ------- ------- -- DEXA scan GAYLE REVELES 04/16 [facility] am [facility] Clinic Team B Non-AD) [facility](F[facility] Team B Non-AD) TELE CONSULT [id number] Notes Entered by: DEANNA REVELES 28 Apr 2019 1226 ------- ------- ------- ------- -- CT results NAVI CACERES 04/28 Other Not Elsewhere Classified [employer] [facility] Team B Non-AD) [employer]([facility] Team [facility] Non-AD) TELE CONSULT [id number] Notes Entered by: PHIL RHOADES 07 May 2019 1043 ------- ------- ------- ------- -- Network Results - Podiatr y 03/18/19 in artifac ts and images. GAYLE REVELES 05/07 [employer] [facility] Team [facility] Non-AD) [employer]([facility] Team [facility] Non-AD) TELE CONSULT [id number] Notes Entered by: DEANNA REVELES 12 May 2019 1613 ------- ------- ------- ------- -- DEXA scan SOCRATES BANGURA 05/12 Other Not Elsewhere Classified [employer]([facility] am [facility] Clinic Team B Non-AD) [facility](Fam Med Clinic Team B Non-AD) TELE CONSULT [id number] Notes Entered by: SANTA OLIVO 08 Jun 2019 1104 ------- ------- ------- ------- -- UC Follow Up SOCRATES BANGURA 06/08 Referred for Appointment [facility] Team B Non-AD) [facility]) OUTPATIENT [id number] f/u for numbnes s in right pinkie, no sensati on/func tion. SAVAGE BERNABE 06/11 Released w/o Limitations [employer] [facility]) [employer](Ort hopedics Clinic) OUTPATIENT [id number] VISHNU CULLEN 06/17 Released w/o Limitations [employer](O rthoped ics Clinic) [employer]([facility] Tm A-AD) TELE CONSULT [id number] Notes Entered by: PHIL RHOADES 07 Jul 2019 1421 ------- ------- ------- ------- -- Network Results - Cardiol ogy-Ech o 06/15/19 in artifac ts and images. PRATEEK MORGAN 07/07 [employer] [facility] Tm A-AD) [employer]([facility] Team B Non-AD) TELE CONSULT [id number] Notes Entered by: LILY THOMPSON 17 Jul 2019 1441 ------- ------- ------- ------- -- Network Results - Cardiol ogy 1.7.20 GAYLE REVELES 07/[facility] [facility] Team B Non-AD) [employer]([facility] Team [facility] Non-AD) TELE CONSULT [id number] Notes Entered by: GEOFF JUDD 17 Jul 2019 1529 ------- ------- ------- ------- -- Network results - Hematol ogy 9.17.19 in artifac ts and images. GAYLE REVELES 07/17 [employer]([facility] am [facility] Clinic Team B Non-AD) [employer]([facility]) OUTPATIENT [id number] f/u R-small finger VISHNU CULLEN 08/07 Released w/o Limitations [employer](O rthoped ics Clinic) [facility]) OUTPATIENT [id number] f/u R-pinky VISHNU CULLEN 08/12 Released w/o Limitations [facility](O rthoped ics Clinic) [facility](Fam Med Clinic Team B Non-AD) OUTPATIENT [id number] Swellin g/pain r-pinky finger GAYLE REVELES 08/21 Released w/o Limitations [facility](F am Med Clinic Team B Non-AD) [employer]([facility] Team B Non-AD) OUTPATIENT [id number] cough x 2 weeks GAYLE REVELES 09/08 Released w/o Limitations [facility](F am Med Clinic Team B Non-AD) [facility] Team B Non-AD) OUTPATIENT [id number] HEADACH E SOB BURNING SENSATI ON IN CHEST GAYLE REVELES 10/26 Released w/o Limitations [facility](F am Med Clinic Team B Non-AD) [facility] Team B Non-AD) TELE CONSULT [id number] Notes Entered by: DEANNA REVELES 30 Oct 2019 0734 ------- ------- ------- ------- -- COVID-1 9 results GAYLE ERVELES 10/29 [facility](F am Med Clinic Team B Non-AD) [facility] Team B Non-AD) OUTPATIENT [id number] POC #[id number] 6[facility] GAYLE REVELES 12/09 Released w/o Limitations [facility](F am Med Clinic Team B Non-AD) [facility] Team B Non-AD) TELE CONSULT [id number] Notes Entered by: GEOFF JUDD 22 Dec 2019 1328 ------- ------- ------- ------- -- Network results - Orthope dics 4.7.20 in artifac ts and images. GAYLE REVELES 12/21 [facility](F am Med Clinic Team B Non-AD) [facility] Team B Non-AD) TELE CONSULT [id number] Notes Entered by: SANTA OLIVO 31 Dec 2019 0727 ------- ------- ------- ------- -- ER Follow Up CAREY LUNA 12/30 Referred for Appointment [facility](F am Med Clinic Team B Non-AD) [facility] Team B Non-AD) OUTPATIENT [id number] ER follow- up, complai nts of migrain s w/GAYLE Richter 12/30 Released w/o Limitations [employer]([facility] Team B Non-AD) [employer](Fam Med [facility] Team B Non-AD) TELE CONSULT [id number] Notes Entered by: CHRIS FORDE 11 Feb 2020 1221 ------- ------- ------- ------- -- Appoint ment request SOCRATES BANGURA 02/10 Referred for Appointment [employer](F am [facility] Clinic Team B Non-AD) [facility](Fam Med Clinic Team B Non-AD) OUTPATIENT [id number] Left ear pain and slight bleedin g, no hearing impairm ent. KATT TILLEY 02/10 Released w/o Limitations [facility](F am Med Clinic Team B Non-AD) [facility](Fam Med Clinic Team B Non-AD) OUTPATIENT [id number] foolow up - ear KATT TILLEY 02/22 Released w/o Limitations [facility](F am Med Clinic Team B Non-AD) [facility](Fam Med Clinic Team B Non-AD) TELE CONSULT [id number] Notes Entered by: DEANNA REVELES 18 Mar 2020 0733 ------- ------- ------- ------- -- Back pain GAYLE REVELES 03/18 [facility](F am Med Clinic Team B Non-AD) [facility](Fam Med Clinic Team B Non-AD) TELE CONSULT [id number] Notes Entered by: PHIL BURGESS 24 Mar 2020 1001 ------- ------- ------- ------- -- Medicat ion request for flying CAREY SIDDIQUI 03/24 [facility](F am Med Clinic Team B Non-AD) [facility](Fam Med Clinic Team B Non-AD) OUTPATIENT [id number] Annual physica l, review labs, and request med for flying. KATT TILLEY 03/25 Released w/o Limitations [facility](F am Med Clinic Team B Non-AD) [facility] Team B Non-AD) TELE CONSULT [id number] Notes Entered by: HAILY CHAVES 15 Apr 2020 0732 ------- ------- ------- ------- -- usha gallardo on thyroid f/u HIMA HAWK 04/15 Other Not Elsewhere Classified [employer](F am Med Clinic Team B Non-AD) [facility] Team B Non-AD) TELE CONSULT [id number] Notes Entered by: KATT TILLEY 21 Apr 2020 0755 ------- ------- ------- ------- -- Lab Results JOHNNIE YOUNG 04/21 Referred for Appointment [facility](F am Med Clinic Team B Non-AD) [facility] Tm E Non-AD) OUTPATIENT [id number] FARIBA Walker 04/22 Released w/o Limitations [facility](F am Health Clinic Tm E Non-AD) [facility] Team B Non-AD) TELE CONSULT [id number] Notes Entered by: KATT TILLEY 27 Apr 20202008 ------- ------- ------- ------- -- Results RHONDA HERNANDEZ 04/28 Referred for Appointment [facility](F am Med Clinic Team B Non-AD) [facility] Team B Non-AD) OUTPATIENT [id number] ULTRASO UND FOLLOW UP KATT TILLEY 04/28 Released w/o Limitations [facility](F am Med Clinic Team B Non-AD) [facility] Team B Non-AD) TELE CONSULT [id number] Notes Entered by: GEOFF JUDD 10 May 2020 1014 ------- ------- ------- ------- -- Network results - ENT 10.29.2 0 in artifac ts and images. BORIS PENN Roxy 05/10 [employer] [facility](F am Med Clinic Team B Non-AD) [employer](Fam [facility] Clinic Team B Non-AD) TELE CONSULT [id number] Notes Entered by: KIMBERLY BLUE 19 May 2020 0716 ------- ------- ------- ------- -- ER F/U CAREY SIDDIQUI 05/19 [employer](F am Med Clinic Team B Non-AD) [employer]([facility]am [facility] Clinic Team B Non-AD) OUTPATIENT [id number] ER follow up for facial lacerat ion with brenda bedolla d/t fall, left shoulde r to KATT TILLEY 05/19 Released w/o Limitations [employer](F am Med Clinic Team B Non-AD) [employer]([facility]am [facility] Clinic Team B Non-AD) TELE CONSULT [id number] Notes Entered by: DC PILLAI 31 May 2020 1025 ------- ------- ------- ------- -- Network Results - ENT 11.12.2 0 BORIS PENN Roxy 05/31 [employer](F am Med Clinic Team B Non-AD) [employer]([facility] OUTPATIENT [id number] Insomni a, unspeci fied([id number] [phone]) AJ COVINGTON 06/07 Released w/o Limitations [employer]([facility] [employer]([facility] OUTPATIENT [id number] f/u stress AJ COVINGTON 06/23 Released w/o Limitations [employer]([facility] [employer](Fam Med Clinic Team B Non-AD) OUTPATIENT [id number] KATT TILLEY 06/23 Released w/o Limitations [employer](F am Med Clinic Team B Non-AD) [employer]([facility] Tm E Non-AD) OUTPATIENT [id number] covid no taste and smell congest ion 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 F/U OJ COVINGTONRUBÉNAJ K 07/14 Released w/o Limitations [facility] Team B Non-AD) TELE CONSULT [id number] Notes Entered by: SASHA THOMAS 20 Jul 2020 1444 ------- ------- ------- ------- -- ER Follow Up BELGICA THOMAS 07/20 Other Not Elsewhere Classified [employer](F am Med Clinic Team B Non-AD) [facility](Fam Med Clinic Team B Non-AD) TELE CONSULT [id number] Notes Entered by: SPENCER CARR 26 Aug 2020 0814 ------- ------- ------- ------- -- Call back request REJI CAMACHO 08/26 Advice Assessment [employer](F am Med Clinic Team B Non-AD) [facility](Fam Med Clinic Team B Non-AD) TELE CONSULT [id number] Notes Entered by: LANDON SANTANA 05 Oct 2020 1459 ------- ------- ------- ------- -- STAT Referra l Request ([facility] ) REJI CAMACHO 10/05 Referred for Appointment [employer] [facility](F am Med Clinic Team B Non-AD) [employer]([facility] Team B Non-AD) OUTPATIENT [id number] Hx of anemia/ transfu sharron- Now bruisin g easily and fatigue d x days. 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 Procedure Procedure Type Code Date Perfomer Comments Sourc e Tummy Tuck [id number] [facility] Hiatal Hernia Repair 000 9C-[employer] Bunionectomy R foot 0009 C-[employer] [facility] Breast Implants 0009C-[employer] Gastric Bypa 0009C-[employer] Hysterectomy 0009C-[employer] Lumpectomy L Breast 0009 C-[employer] TELE ASSESS & MGT SRV PROV QUAL NONPHYS HLTH CARE PRO TO EST PAT,PARENT,GUARD NOT ORIG REL ASSESS & MGT SRV PROV W/IN PREV 7 DAYS NOR LEAD ASSESS & MGT SRV/PX W/IN NXT 24H/SOON APT; 11-20 MIN MED DIS 012 DoD UNLISTED PROCEDURE, BREAST 000 DoD CERVICAL OR VAGINAL CANCER SCREENING; PELVIC AND CLINICAL BREAST EXAMINATION 000 DoD CERVICAL OR VAGINAL CANCER SCREENING; PELVIC AND CLINICAL BREAST EXAMINATION 004 DoD NONINVASIVE EAR OR PULSE OXIMETRY FOR OXYGEN SATURATION; SINGLE DETERMINATION 004 DoD BRONCHODILATION RESPONSIV[place] [address], PRE- AND POST-BRONCHODILATOR ADMINISTRATION 003 DoD COLLECTION OF VENOUS BLOOD BY VENIPUNCTURE 003 DoD OPHTHALMOLOGICAL SERVICES: MEDICAL EXAMINATION AND EVALUATION, WITH INITIATION OR CONTINUATION OF DIAGNOSTIC AND TREATMENT PROGRAM; INTERMEDIATE, ESTABLISHED PATIENT [facility] OPHTHALMOLOGICAL SERVICES: MEDICAL EXAMINATION AND EVALUATION, WITH INITIATION OR CONTINUATION OF DIAGNOSTIC AND TREATMENT PROGRAM; INTERMEDIATE, ESTABLISHED PATIENT [facility] SCREENING PAPANICOLAOU SMEAR; OBTAINING, PREPARING AND CONVEYANCE OF CERVICAL OR VAGINAL SMEAR TO LABORATORY 003 [facility] NONINVASIVE EAR OR PULSE OXIMETRY FOR OXYGEN SATURATION; SINGLE DETERMINATION 002 [facility] THERAPEUTIC, PROPHYLACTIC OR DIAGNOSTIC INJECTION (SPECIFY MATERIAL INJECTED); SUBCUTANEOUS OR INTRAMUSCULAR 002 DoD NONINVASIVE EAR OR PULSE OXIMETRY FOR OXYGEN SATURATION; SINGLE DETERMINATION 002 DoD NONINVASIVE EAR OR PULSE OXIMETRY FOR OXYGEN SATURATION; SINGLE DETERMINATION 001 DoD TELE ASSESS & MGT SRV PROV QUAL NONPHYS HLTH CARE PRO TO EST PAT,PARENT,GUARD NOT ORIG REL ASSESS & MGT SRV PROV W/IN PREV 7 DAYS NOR LEAD ASSESS & MGT SRV/PX W/IN NXT 24 HR/SOON APT;5-10 MIN MED DIS 021 DoD TELE ASSESS & MGT SRV PROV QUAL NONPHYS HLTH CARE PRO TO EST PAT,PARENT,GUARD NOT ORIG REL ASSESS & MGT SRV PROV W/IN PREV 7 DAYS NOR LEAD ASSESS & MGT SRV/PX W/IN NXT 24 HR/SOON APT;5-10 MIN MED DIS 021 DoD TELE ASSESS & MGT SRV PROV QUAL NONPHYS HLTH CARE PRO TO EST PAT,PARENT,GUARD NOT ORIG REL ASSESS & MGT SRV PROV W/IN PREV 7 DAYS NOR LEAD ASSESS & MGT SRV/PX W/IN NXT 24H/SOON APT; 11-20 MIN MED DIS 021 DoD HEALTH BEHAVIOR ASSESSMENT, OR RE-ASSESSMENT (IE, HEALTH-FOCUSED CLINICAL INTERVIEW, BEHAVIORAL OBSERVATIONS, CLINICAL DECISION MAKING) [facility] WAIVER SERVICES; NOT OTHERWISE SPECIFIED (NOS) [facility] BRIEF EMOTIONAL/BEHAVIORAL ASSESSMENT (EG, DEPRESSION INVENTORY, ATTENTION-DEFICIT/HY PERACTIVITY DISORDER [ADHD] SCALE), WITH SCORING AND DOCUMENTATION, PER STANDARDIZED INSTRUMENT [facility] HEALTH BEHAVIOR INTERVENTION, INDIVIDUAL, [id number]; INITIAL 30 MINUTES DoD TELE ASSESS & MGT SRV PROV QUAL NONPHYS HLTH CARE PRO TO EST PAT,PARENT,GUARD NOT ORIG REL ASSESS & MGT SRV PROV W/IN PREV 7 DAYS NOR LEAD ASSESS & MGT SRV/PX W/IN NXT 24H/SOON APT; 11-20 MIN MED DIS DoD TELE ASSESS & MGT SRV PROV QUAL NONPHYS HLTH CARE PRO TO EST PAT,PARENT,GUARD NOT ORIG REL ASSESS & MGT SRV PROV W/IN PREV 7 DAYS NOR LEAD ASSESS & MGT SRV/PX W/IN NXT 24 HR/SOON APT;5-10 MIN MED DIS 020 DoD TELE ASSESS & MGT SRV PROV QUAL NONPHYS HLTH CARE PRO TO EST PAT,PARENT,GUARD NOT ORIG REL ASSESS & MGT SRV PROV W/IN PREV 7 DAYS NOR LEAD ASSESS & MGT SRV/PX W/IN NXT 24 HR/SOON APT;5-10 MIN MED DIS 020 DoD TELE ASSESS & MGT SRV PROV QUAL NONPHYS HLTH CARE PRO TO EST PAT,PARENT,GUARD NOT ORIG REL ASSESS & MGT SRV PROV W/IN PREV 7 DAYS NOR LEAD ASSESS & MGT SRV/PX W/IN NXT 24 HR/SOON APT;5-10 MIN MED DIS 020 DoD TELE ASSESS & MGT SRV PROV QUAL NONPHYS HLTH CARE PRO TO EST PAT,PARENT,GUARD NOT ORIG REL ASSESS & MGT SRV PROV W/IN PREV 7 DAYS NOR LEAD ASSESS & MGT SRV/PX W/IN NXT 24 HR/SOON APT;5-10 MIN MED DIS 020 DoD TELE ASSESS & MGT SRV PROV QUAL NONPHYS HLTH CARE PRO TO EST PAT,PARENT,GUARD NOT ORIG REL ASSESS & MGT SRV PROV W/IN PREV 7 DAYS NOR LEAD ASSESS & MGT SRV/PX W/IN NXT 24 HR/SOON APT;5-10 MIN MED DIS 020 DoD WAIVER SERVICES; NOT OTHERWISE SPECIFIED (NOS) DoD TELE ASSESS & MGT SRV PROV QUAL NONPHYS HLTH CARE PRO TO EST PAT,PARENT,GUARD NOT ORIG REL ASSESS & MGT SRV PROV W/IN PREV 7 DAYS NOR LEAD ASSESS & MGT SRV/PX W/IN NXT 24 HR/SOON APT;5-10 MIN MED DIS 020 DoD WAIVER SERVICES; NOT OTHERWISE SPECIFIED (NOS) 020 DoD TELE ASSESS & MGT SRV PROV QUAL NONPHYS HLTH CARE PRO TO EST PAT,PARENT,GUARD NOT ORIG REL ASSESS & MGT SRV PROV W/IN PREV 7 DAYS NOR LEAD ASSESS & MGT SRV/PX W/IN NXT 24 HR/SOON APT;5-10 MIN MED DIS 019 DoD TELE ASSESS & MGT SRV PROV QUAL NONPHYS HLTH CARE PRO TO EST PAT,PARENT,GUARD NOT ORIG REL ASSESS & MGT SRV PROV W/IN PREV 7 DAYS NOR LEAD ASSESS & MGT SRV/PX W/IN NXT 24 HR/SOON APT;5-10 MIN MED DIS 019 DoD TELE ASSESS & MGT SRV PROV QUAL NONPHYS HLTH CARE PRO TO EST PAT,PARENT,GUARD NOT ORIG REL ASSESS & MGT SRV PROV W/IN PREV 7 DAYS NOR LEAD ASSESS & MGT SRV/PX W/IN NXT 24 HR/SOON APT;5-10 MIN MED DIS 019 DoD TELE ASSESS & MGT SRV PROV QUAL NONPHYS HLTH CARE PRO TO EST PAT,PARENT,GUARD NOT ORIG REL ASSESS & MGT SRV PROV W/IN PREV 7 DAYS NOR LEAD ASSESS & MGT SRV/PX W/IN NXT 24 HR/SOON APT;5-10 MIN MED DIS 019 DoD SELF-CARE EDUCATION PROVIDED TO PATIENT (HF) 019 DoD TELE ASSESS & MGT SRV PROV QUAL NONPHYS HLTH CARE PRO TO EST PAT,PARENT,GUARD NOT ORIG REL ASSESS & MGT SRV PROV W/IN PREV 7 DAYS NOR LEAD ASSESS & MGT SRV/PX W/IN NXT 24H/SOON APT; 11-20 MIN MED DIS 018 DoD TELE ASSESS & MGT SRV PROV QUAL NONPHYS HLTH CARE PRO TO EST PAT,PARENT,GUARD NOT ORIG REL ASSESS & MGT SRV PROV W/IN PREV 7 DAYS NOR LEAD ASSESS & MGT SRV/PX W/IN NXT 24 HR/SOON APT;5-10 MIN MED DIS 018 DoD SMEAR, PRIMARY SOURCE WITH INTERPRETATION; WET MOUNT FOR INFECTIOUS AGENTS (EG, SALINE, KATHERINE INK, KAUSHAL PREPS) 018 DoD TELE ASSESS & MGT SRV PROV QUAL NONPHYS HLTH CARE PRO TO EST PAT,PARENT,GUARD NOT ORIG REL ASSESS & MGT SRV PROV W/IN PREV 7 DAYS NOR LEAD ASSESS & MGT SRV/PX W/IN NXT 24 HR/SOON APT;5-10 MIN MED DIS 018 DoD TELE ASSESS & MGT SRV PROV QUAL NONPHYS HLTH CARE PRO TO EST PAT,PARENT,GUARD NOT ORIG REL ASSESS & MGT SRV PROV W/IN PREV 7 DAYS NOR LEAD ASSESS & MGT SRV/PX W/IN NXT 24 HR/SOON APT;5-10 MIN MED DIS 018 DoD TELE ASSESS & MGT SRV PROV QUAL NONPHYS HLTH CARE PRO TO EST PAT,PARENT,GUARD NOT ORIG REL ASSESS & MGT SRV PROV W/IN PREV 7 DAYS NOR LEAD ASSESS & MGT SRV/PX W/IN NXT 24 HR/SOON APT;5-10 MIN MED DIS 018 DoD TELE ASSESS & MGT SRV PROV QUAL NONPHYS HLTH CARE PRO TO EST PAT,PARENT,GUARD NOT ORIG REL ASSESS & MGT SRV PROV W/IN PREV 7 DAYS NOR LEAD ASSESS & MGT SRV/PX W/IN NXT 24 HR/SOON APT;5-10 MIN MED DIS 018 DoD TELE ASSESS & MGT SRV PROV QUAL NONPHYS HLTH CARE PRO TO EST PAT,PARENT,GUARD NOT ORIG REL ASSESS & MGT SRV PROV W/IN PREV 7 DAYS NOR LEAD ASSESS & MGT SRV/PX W/IN NXT 24 HR/SOON APT;5-10 MIN MED DIS 018 DoD TELE ASSESS & MGT SRV PROV QUAL NONPHYS HLTH CARE PRO TO EST PAT,PARENT,GUARD NOT ORIG REL ASSESS & MGT SRV PROV W/IN PREV 7 DAYS NOR LEAD ASSESS & MGT SRV/PX W/IN NXT 24 HR/SOON APT;5-10 MIN MED DIS 017 [facility] PATIENT-INITIATED SPIROMETRIC RECORDING PER 30-DAY PERIOD OF TIME; REVIEW AND INTERPRETATION ONLY BY A PHYSICIAN OR OTHER QUALIFIED HEALTH HR INTERNSHIP 017 [facility] CYTOPATHOLOGY, SMEARS, CERVICAL OR VAGINAL, UP TO THREE SMEARS; SCREENING BY DANCE CHOREOGRAPHER UNDER PHYSICIAN SUPERVISION 017 [facility] MODIFICATION OF CONTACT LENS (SEPARATE PROCEDURE), WITH MEDICAL SUPERVISION OF ADAPTATION 010 [facility] FUNDUS PHOTOGRAPHY WITH INTERPRETATION AND REPORT 009 [facility] THERAPEUTIC PROCEDURE(S), GROUP (2 OR MORE INDIVIDUALS) 008 [facility] APPLICATION OF A MODALITY TO 1 OR MORE AREAS; HOT OR COLD PACKS 008 [facility] SELF-CARE/HOME MANAGMENT TRAIN (EG,ACT OF DAILY LIVING (ADL) &COMPENSAT TRAIN,MEAL PREPARATION,SAFETY PROCS,AND INSTRUCT IN USE OF ASST TECHNOLOGY DEV/ADPT EQUIP) DIR ONE-ON-ONE CONT,EA 15 MINUTES 008 [facility] DETERMINATION OF REFRACTIVE STATE 008 [facility] DETERMINATION OF REFRACTIVE STATE 007 [facility] DESTRUCTION (EG, LASER SURGERY, ELECTROSURGERY, CRYOSURGERY, CHEMOSURGERY, SURGICAL CURETTEMENT), PREMALIGNANT LESIONS (EG, ACTINIC KERATOSES); FIRST LESION 006 [facility] VISUAL FIELD EXAMINATION, UNI OR BILATERAL, WITH MEDICAL DIAGNOSTIC EVAL; INTERMEDIATE EXAM (EG, AT LEAST 2 ISOPTERS ON GOLDMANN PERIMETER, OR SEMIQUANT, AUTO SUPRATHRESHOLD SCREEN PROGRAM, ALVA 005 [facility] INFLUENZA VIRUS VACCINE, TRIVALENT (IIV3), SPLIT VIRUS, 0.5 ML DOSAGE, FOR INTRAMUSCULAR USE 005 [facility] MEASLES, MUMPS AND RUBELLA VIRUS VACCINE (MMR), LIVE, FOR SUBCUTANEOUS USE 005 [facility] HEPATITIS B AND HAEMOPHILUS INFLUENZAE TYPE B VACCINE (HIB-HEPB), FOR INTRAMUSCULAR USE 005 [facility] SCREENING PAPANICOLAOU SMEAR; OBTAINING, PREPARING AND CONVEYANCE OF CERVICAL OR VAGINAL SMEAR TO LABORATORY 005 [facility] Preventive Medicine Services: Counseling/Education On Self-Care Preventive Medicine Services: Counseling/Educatio n On Self-Care [id number] ABRAHAN MORGAN [facility] A e ment And Intervention Review Of Medications Documented Assessment And Intervention Review Of Medications Documented 1160F ABRAHAN REARDON Comprehensive Metabolic Chem Panel Comprehensive Metabolic Chem Panel [id number] [id number] ABRAHAN MORGAN [facility] Non-Physician Phone Call To Pt/Provider Intermed (11-20 min) Non-Physician Phone Call To Pt/Provider Intermed (11-20 min) [id number] SOCRATES BANGURA [facility] Non-Physician Phone Call To Patient/Provider Brief (5-10min) Non-Physician Phone Call To Patient/Provider Brief (5-10min) [id number] 018 YANELY OLIVER Vaginal KAUSHAL Prep Vaginal KAUSHAL Prep 55797 018 MARIO ROCHA Cervical Wet [place] Cervical Wet [place] 93225 018 MARIO ROCHA [facility] Non-Physician Phone Call To Patient/Provider Brief (5-10min) Non-Physician Phone Call To Patient/Provider Brief (5-10min) 10073 018 YANELY OLIVER [facility] Non-Physician Phone Call To Patient/Provider Brief (5-10min) Non-Physician Phone Call To Patient/Provider Brief (5-10min) 22547 018 JAMAAL GROSSMAN [facility] Non-Physician Phone Call To Patient/Provider Brief (5-10min) Non-Physician Phone Call To Patient/Provider Brief (5-10min) [id number] 018 JAMAAL GROSSMAN [facility] Non-Physician Phone Call To Patient/Provider Brief (5-10min) Non-Physician Phone Call To Patient/Provider Brief (5-10min) 51458 018 JAMAAL GROSSMAN [facility] Non-Physician Phone Call To Patient/Provider Brief (5-10min) Non-Physician Phone Call To Patient/Provider Brief (5-10min) 45054 017 JAMAAL GROSSMAN Vaginal Pap Smear Vaginal Pap Smear 16370 03/22 017 ADAM BULLOCK [facility] Spirometric Recording Patient Initiated Per 30 Days Physician Review And Interpretation Only Spirometric Recording Patient Initiated Per 30 Days Physician Review And Interpretation Only [id number] 017 RIKI MARTINEZ [facility] Spirometry Pre-bronchodilator Spirometry Pre-bronchodilator 00215 017 RIKI MARTINEZ Non-Physician Phone Call To Pt/Provider Intermed (11-20 min) Non-Physician Phone Call To Pt/Provider Intermed (11-20 min) 34148 012 SARAI SORENSEN Ophthalmological Services Modification of Contact Lenses Ophthalmological Services Modification of Contact Lenses 10910 010 VINAY SOLOMON Ophthalmological Prior Patient Start Comprehensive Care Ophthalmological Prior Patient Start Comprehensive Care 67237 010 VINAY SOLOMON Determination Of Refractive State Determination Of Refractive State 01742 010 VINAY SOLOMON Fundus Photography Fundus Photography 15692 03/09 009 SHEREE GARCIA Diagnostic Imaging Ocular Coherence Topography 009 SHEREE GARCIA Visual Reich Test Intermediate Examination Visual Reich Test Intermediate Examination 02902 009 SHEREE GARCIA Determination Of Refractive State Determination Of Refractive State 34701 009 SHEREE GARCIA Prescription And Fitting Bilateral Corneal Lenses (Not For Aphakia) Prescription And Fitting Bilateral Corneal Lenses (Not For Aphakia) 36752 009 SHEREE GARCIA Ophthalmological Prior Patient Start Comprehensive Care Ophthalmological Prior Patient Start Comprehensive Care 14378 009 SHEREE GARCIA Modalities Cryotherapy Cold Packs Modalities Cryotherapy Cold Packs 94652 008 SANJUANITA COLIN Physical Medicine - Group Physical Therapy Se ion Physical Medicine - Group Physical Therapy Session 29026 008 SANJUANITA COLIN Modalities Cryotherapy Cold Packs Modalities Cryotherapy Cold Packs 71344 008 JAMA JARAMILLO Physical Medicine - Group Physical Therapy Se ion Physical Medicine - Group Physical Therapy Session 63859 008 JAMA JARAMILLO Phys Therapy Education Self Care Training - Per 15 Minutes Phys Therapy Education Self Care Training - Per 15 Minutes 31880 008 IVAN DELEON Physical Therapy Service Evaluation Physical Therapy Service Evaluation 24463 008 IVAN DELEON Determination Of Refractive State Determination Of Refractive State 41891 008 SHEREE GARCIA Prescription And Fitting Bilateral Corneal Lenses (Not For Aphakia) Prescription And Fitting Bilateral Corneal Lenses (Not For Aphakia) 95985 008 SHEREE GARCIA Ophthalmological Prior Patient Start Comprehensive Care Ophthalmological Prior Patient Start Comprehensive Care 02983 008 SHEREE GARCIA Corneal Pachymetry, Bilateral With Interpret And Report Corneal Pachymetry, Bilateral With Interpret And Report 04434 008 SHEREE GARCIA Visual Reich Test Extended Examination Visual Reich Test Extended Examination 74239 008 SHEREE GARCIA Determination Of Refractive State Determination Of Refractive State 55978 007 ANIVAL TRACEY Prescription And Fitting Bilateral Corneal Lenses (Not For Aphakia) Prescription And Fitting Bilateral Corneal Lenses (Not For Aphakia) 89957 007 ANIVAL TRACEY Visual Reich Test Intermediate Examination Visual Reich Test Intermediate Examination 20769 007 ANIVAL TRACEY Ophthalmological Prior Patient Start Comprehensive Care Ophthalmological Prior Patient Start Comprehensive Care 64751 007 ANIVAL TRACEY Destruction Of Benign Lesion By Chemical Cauterization 006 FE LAROSE Screening papanicolaou smear; obtaining, preparing and conveyance of cervical or vaginal smear to laboratory 005 ELVIRA GREENFIELD Orthopedic Splinting Short Arm Static Orthopedic Splinting Short Arm Static 91782 005 ELVIRA GREENFIELD Cast supplies, short arm splint, adult (11 years +), plaster 005 ELVIRA GREENFIELD Pulse Oximetry Pulse Oximetry 05370 004 ESTRELLITA GALINDO 99% [facility] Non-Physician Phone Call To Patient/Provider Brief (5-10min) Non-Physician Phone Call To Patient/Provider Brief (5-10min) 16049 REJI CAMACHO [facility] Waiver services; not otherwise specified (NOS) GAYLE REVELES [facility] Non-Physician Phone Call To Pt/Provider Intermed (11-20 min) Non-Physician Phone Call To Pt/Provider Intermed (11-20 min) 55392 CAREY SIDDIQUI [facility] Psychometric Emotional / Behavioral A e ment Psychometric Emotional / Behavioral Assessment 66476 AJ COVINGTON [facility] Health And Behav A e mt Each 15 Min Initial A e ment Health And Behav Assessmt Each 15 Min Initial Assessment 68207 AJ COVINGTON [facility] Health Behavior Intervention Individual Initial 30 Minutes Health Behavior Intervention Individual Initial 30 Minutes 81263 AJ COVINGTON [facility] Health Behavior A e ment / Re-A e ment Health Behavior Assessment / Re-Assessment 08690 ADRIA AJ Nakul [facility] Social History Combined list of available smoking, tobacco, and other social history from Department of Defense and Veterans Affairs facilities. Social History Type Response Date Comment Sour e Female 08/26/2020 Ambulatory Pha rmacy Tobacco Former - cigarette user Cigarette use:. Ambulatory Pharmacy Sexual Orientation Ambula tory Pharmacy Gender identity Ambulator y Pharmacy This section is an empty social history section. [facility] Assessment and Plan Combined list of future care activities from Department of Defense and Veterans Affairs facilities (e.g., assessment and plan notes, appointments, orders, and referrals). Additional future care activities may be listed in the Plan of Care section. Result Assessment and Plan Date Source Assessment and Plan Extracted from:Title : [facility] - med refill Author: MELISSA MARTINEZ DO Date: 06/21/21 1. A nxiety disorder r efilled as requested and will follow up for any other problems or concerns Ordered: traZODone, 1 tab(s), Oral, every day at bedtime, PRN sleep, # 90 EA, 1 total refill(s), Maintenance, 1 tab(s) Oral every day at bedtime,PRN:sleep, Pharmacy: [facility] [Not filled] Office Visit Level 2 Est 70323 Waiver Services; Not Otherwise Specified (NOS) [id number] Extracted from:Title: [facility] - VIRT - Anxiety disorder Author: WILMAR RAMIREZ FNP-C Date: 04/24/21 1. A nxiety disorder E stablished, chronic. Symptoms controlled on current regimen. No current HI/SI.? GILLES a nd depression score: 0 . R enewed trazodone a t bedtime for sleep O rder placed f or diazepam t o take as needed f or upcoming f light to [place] d ue to fear of flying P atient to follow-up with hematology f or other chronic issues in May 2021 P atient to follow-up i n clinic a s needed P VUA Ordered: diazePAM, See Instructions, PRN anxiety, take 1-2 tabs by mouth 30-60 minutes prior to flight as needed, PRN: anxiety, # 10 tab(s), 0 total refill(s), Acute, 06/06/2021, take 1-2 tabs by mouth 30-60 minutes prior to flight as needed, PRN: anxiety,PRN:as needed... [ traZODone, 1 tab(s), Oral, every day at bedtime, PRN sleep, # 90 EA, 1 total refill(s), Maintenance, 1 tab(s) Oral every day at bedtime,PRN:sleep, Pharmacy: [facility] [Not filled] Office Visit Level 3 Est 59335 Waiver Services; Not Otherwise Specified (NOS) T2025 NOTICE - Medications reconciled during visit. - This note has been transcribed into the medical record using voice activated software, please excuse any error in syntax o r spelling. It was dictated with care of but not proofread with a high degree of scrutiny. - If this visit involved labs, radiology, or other studies patient will follow-up by making an appointment with PCM to review the results within the next 4 weeks. If results are negative or not concerning they will not receive a call regarding this. I have instructed the patient to register for and utilize the [facility] Patient Portal. - Diagnosis, treatment plan (including medications and their side effects, if any) and options were discussed with patient who verbalized understanding and agreement with plan. - If symptoms do not resolve or improve as anticipated, patient will make a follow-up appointment to readdress t heir symptoms. If patient believes there is a threat to life, limb, or eyesight or perceived any sort of emergency, patient will present to the emergency room. Extracted from:Title: Surgical Office Visit Note Author: DARLENE PLEITEZ PA Date: 01/25/21 1. P ain in left knee Assessment/Plan: 1. left lateral knee burning and decreased sensation, possible left peroneal nerve irritation versus IT band tightness with associated nerve irritation p atient has an atypical presentation of burning along the left lateral knee starting along the lateral border of the patella and proceeding distally approximately 6 cm along the lateral lower leg. Knee exam is unremarkable. There is no evidence of swelling, heat or redness. There is no reproducible tenderness or reproducible symptomology to be had. Patient does state that she crosses her legs typically with her left over right on a regular basis. This could precipitate some peroneal nerve irritation causing the nerve irritation. She also had some iliotibial tract tightness. Discussed stretching and massage techniques for her IT band. Advised patient to refrain from crossing her legs to determine if she sees improvements over the next few weeks. Patient has been advised that t he expectation of recovery for nerve irritation typically is prolonged in comparison to other musculoskeletal conditions. Discussed ice treatments as well to decrease inflammation. I don't feel that gabapentin is necessary at this time as her symptoms are somewhat mild. Physical therapy may assist in stretching of the IT band, however muscular balance and strength as well as range of motion a re more than adequate.? No further studies at this time. No additional medications at this time. No specific follow-up necessary. Patient may follow up as an as-needed basis Dictation software was used in the dictation of this encounter. Please excuse grammatical errors. Maj Erin, [employer], BSC, MS GABINOC Physician Gear Inspector, Orthopaedic Surgery Extracted from:Title: Office Clinic Note Author: RONN MITCHELL PA-C Date: 01/23/21 1. S creening due [age]yo F due for mammogram - order placed Ordered: [id number] - Clinic Est Level 3 Extracted from:Title: Office Clinic Note Author: RONN MITCHELL PA-C Date: 01/05/21 1. P ain in left knee [age]yo F with peripatellar pain, hx of frequent running. She has unusual paresthesias and radiating pain. No hx of trauma. XR reviewed from 2 days prior. - f/u with PT - TON - will send to ortho for consideration for steroid injection given her unusual symptoms Ordered: 66846 - Clinic Est Level 3 2. F ear of flying p t leaving on emergency leave, requesting diazepam for flight with multiple stops. She has taken this before for same issue. - order placed, dosing and side effects discussed Ordered: diazePAM 5 mg oral tablet, See Instructions, PRN anxiety, take 1-2 tabs by mouth 30-60 minutes prior to flight as needed, # 10 tab(s), 0 total refill(s), Acute, 01/16/2021, take 1-2 tabs by mouth 30-60 minutes prior to flight as needed,PRN:as needed for anxiety, Pharmacy: [facility] [address] - Clinic Est Level 3 Extracted from:Title: [facility]-left knee pain Author: KATT TILLEY NP Date: 12/29/20 1. P ain in left knee O ngoing x 2 months. Differential is wide. 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 Discussed conservative measures. Will get imaging. Recommended short trial if gabapentin. Reviewed side effects, adverse effects, expectation and administration. Will get vitamin testing as pt takes supplementation. Will follow up when results available in 2 weeks. Ordered: gabapentin 100 mg oral capsule, 1 cap(s), Oral, Daily, at bedtime, # 30 cap(s), 0 total refill(s), Maintenance, Pharmacy: [facility] [Not filled] [id number] - Clinic Est Level 3 Vit B12 and Folate [id number] Vitamin B6 [id number] This note has been transcribed into the medical record using voice activated software, please excuse any error in syntax or spelling. It was dictated with care, but not proofread with high degree of scrutiny. If this visit involved labs, radiology, or other studies, the patient will follow-up by making an appointment with me or the patient's PCM, if not me to review the results within the next 4 weeks. If results are negative they will not receive a call regarding this. Diagnosis treatment plan, including medications and their side effects if any and options were discussed with patient who verbalized understanding and agreement with plan. If symptoms do not resolve or improve as anticipated patient will make a follow-up appointment to readdress the symptoms. If patient believes there is a threat to life limb or eyesight or perceived any sort of emergency, patient will present to the emergency room. 08/18/2024 000-[facility] Functional Status Combined list of recent functional and cognitive assessments recorded at Department of Defense and Veterans Affairs (VA).VA Functional [place] Measurement (FIM) Scale: 1 = Total Assistance (Subject = 0% +), 2 = Maximal Assistance (Subject = 25% +), 3 = Moderate Assistance (Subject = 50% +), 4 = Minimal Assistance (Subject = 75% +), 5 = Supervision, 6 = Modified [place] (Device), 7 = Complete [place] (Timely, Safely). Assessment Date/Time Source Assessment Type Assessment Skill Assessment Score Assessment Details No data available for this section
--- OUTSIDE RECORDS SUMMARY | 2024-08-18 16:52 | XMS_ITS | Clinical Summary ---
Author Organization [facility] Address [address] [place] [address] Care Team Providers Care Group Leader [employer]iconductor Processing Name Role Phone Bob Richmond Primary Care Provider [phone] Lavon Christianson MD Unavailable + [phone] Source Comments [facility],non-owned Affiliates and Associated Physician Practices is amultiple site organization consisting of ambulatory clinics and hospital sitesin [place], [place], [place] and [place]. This disclosure is being madepursuant to the Care Everywhere program and may not contain all information available regarding this patient. Last updated 18.[facility] Allergies No known active allergies Medications * Be aware that medications may not be up to date on this document. Alwaysverify current medications with the patient. Medication Sig Dispensed Refills Start Date End Date Status albuterol HFA (Proventil; Ventolin; Proair) 108 (90 Base) MCG/ACT inhaler 01/01/2022 Active aspirin EC (Ecotrin) 81 MG tablet Take 1 (one) tablet by mouth once daily Active Biotin 5 MG Take 5 mg by mouth once daily Active Cholecalciferol 125 MCG (5000 UT) Active Cyanocobalamin 2000 MCG Active cyclobenzaprine (Flexeril) 5 MG tablet Take 1 (one) tablet by mouth nightly as needed 11/16/2022 Active diazePAM (Valium) 5 MG tablet TAKE 1 TABLET BY MOUTH PRIOR TO UPCOMING FLIGHTS. DO NOT DRIVE WHILE TAKING THIS MEDICATION. 10/29/2022 Active HYDROcodone-acetamin ophen (Crescent) 5-325 MG tablet Take 1 (one) tablet by mouth nightly as needed 02/23/2022 Active lidocaine (Lidoderm) 4 % patch Apply 1 (one) patch to skin every 24 hours 11/16/2022 Active meloxicam (Mobic) 7.5 MG tablet Take with food/milk.Obtain advice for OTCs.Do not take if . 11/27/2022 Active spironolactone (Aldactone) 100 MG tablet Take 1 (one) tablet by mouth 09/04/2022 Active rimegepant (Nurtec) 75 MG tablet Obtain advice for OTCs.Check with your doctor before becoming . 12/20/2022 Active traZODone (Desyrel) 50 MG tablet Take 1 (one) tablet by mouth at bedtime 30 tablet 16 09/26/2021 Active Chelated Zinc 50 MG TABS Take 1 tablet by mouth once daily Active Active Problems No known active problems Family History Medical History Relation Name Comments CVA Father Hypertension Father Diabetes - Type 2 Mother Arthritis - Osteo Sister Relation Name Status Comments Brother Alive Father Alive Mother Sister Alive Social History Tobacco Use Types Packs/Day Years Used Date Smoking Tobacco: Former Cigarettes Smokeless Tobacco: Never Tobacco Cessation:Counseling Given: Not Answered Alcohol Use Standard Drinks/Week Comments Not Currently 2 (1 standard drink = 0.6 oz pur e alcohol) Sex and Gender Information Value Date Recorded Sex Assigned at Not on file Gender Identity Not on file Sexual Orientation Not on file Last Filed Vital Signs Vital Sign Reading Time Taken Comments Blood Pressure 102/61 01/22/2023 12:51 PM CDT Pulse 70 01/22/2023 12:51 PM CDT Temperature - - Respiratory Rate - - Oxygen Saturation - - Inhaled Oxygen Concentration - - Weight 55.7 kg (122 lb 11.2 oz) 023 12:51 PM CDT Height 160 cm (5' 3 ) 01/22/2023 12:51 PM CDT Body Mass Index 21.74 01/22/2023 12:51 PM CDT Plan of Treatment Health Maintenance Due Date Last Done Comments COLOGBERRYRD (AGES 45-75) - COLON CA SCREENING 1973 COLON MONITORING 1973 COLONOSCOPY - COLON CA SCREENING 1973 CT COLONOGRAPHY - COLON CA SCREENING 1973 Colorectal Cancer Screening 1973 FIT - COLON CA SCREENING 1973 FLEX SIG - COLON CA SCREENING 1973 LIPID TESTING 1973 MAMMOGRAM 1973 HIV SCREENING 1988 HEPATITIS C SCREENING 12/08/1991 DTAP/TDAP/TD VACCINES (1 - Tdap) 1992 HEPATITIS B VACCINE (1 of 3 - 19+ 3-dose series) 1992 PNEUMOCOCCAL VACCINE 50+ (1 of 1 - PCV) 12/13/2023 ZOSTER VACCINE (1 of 2) 12/13/2023 COVID-19 VACCINE (4 - 2023- season) 2024 08/18/2021, 09/09/2020, 08/12/2020 INFLUENZA VACCINE (#1) 2024 , 04/26/2020, 04/27/2019, Additional history exists DEPRESSION SCREENING 07/08/2024 HIB VACCINE Aged Out No longer eligi ble based on patient's age to complete this topic HPV VACCINE Aged Out No longer eligi ble based on patient's age to complete this topic MENINGOCOCCAL (Group B) VACCINE Aged Out No longer eligible based on patient's age to complete this topic MENINGOCOCCAL VACCINE Aged Out No efraín faye eligible based on patient's age to complete this topic PNEUMOCOCCAL VACCINE Aged Out No long er eligible based on patient's age to complete this topic Care Teams Group Leader Semiconductor Processing Relationship Specialty Start Date End Date Bob Richmond PA [address] [facility] [address] [place] [address] PCP - General Physician Production Department Supervisor 01/02/23 [place] [address] [place] [id number] Neurological Surgery 01/22/23
--- OUTSIDE RECORDS SUMMARY | 2024-08-18 16:52 | XMS_ITS | Referral Summary ---
Author Organization [facility] Address [address] [place] [address] Care Team Providers Care Protection Chief Industrial Plant Name Role Phone Bob Richmond Primary Care Provider [phone] Lavon Christianson MD Unavailable + [phone] Source Comments [facility],non-owned Affiliates and Associated Physician Practices is amultiple site organization consisting of ambulatory clinics and hospital sitesin [place], [place], [place] and [place]. This disclosure is being madepursuant to the Care Everywhere program and may not contain all information available regarding this patient. Last updated 18.[facility] Allergies No known active allergies Medications * [...] TAKING THIS MEDICATION. 10/29/2022 Active HYDROcodone-acetamin ophen ([place]) 5-325 MG tablet Take 1 (one) tablet [...] 01/22/2023 12:51 PM CDT Plan of Treatment Not on file Care Teams Protection Chief Industrial Plant Relationship Specialty Start Date End Date Bob Richmond PA [address] [facility] [address] [place] [address] PCP - General Physician Ware Server 01/02/23 Lavon Christianson MD [address] [facility] [address] [place] [address] Neurological Surgery 01/22/23
--- OUTSIDE RECORDS SUMMARY | 2024-08-18 16:52 | XMS_ITS | Patient Health Summary ---
Author Organization [facility] Address [address] [facility] [address] Care Team Providers Care Bottled Beverage Inspector Name Role Phone Bob Richmond Primary Care Provider [phone] Lavon Christianson MD Unavailable + [phone] Note from [facility],non-owned Affiliates and Associated Physician Practices is amultiple site organization consisting of ambulatory clinics and hospital sitesin [place], [place] and [place]. This disclosure is being madepursuant to the Care Everywhere program and may not contain all information available regarding this patient. Last updated 18.[facility] Allergies No known active allergies Medications * Be aware that medications may not be up to date on this document. Alwaysverify current medications with the patient. * albuterol HFA (Proventil; Ventolin; Proair) 108 (90 Base) MCG/ACT inhaler (Started 01/01/2022) * aspirin EC (Ecotrin) 81 MG tablet Take 1 (one) tablet by mouth once daily * Biotin 5 MG Take 5 mg by mouth once daily * Cholecalciferol 125 MCG (5000 UT) * Cyanocobalamin 2000 MCG * cyclobenzaprine (Flexeril) 5 MG tablet(Started 11/16/2022) Take 1 (one) tablet by mouth nightly as needed * diazePAM (Valium) 5 MG tablet(Started 10/29/2022) TAKE 1 TABLET BY MOUTH PRIOR TO UPCOMING FLIGHTS. DO NOT DRIVE WHILE TAKING THIS MEDICATION. * HYDROcodone-acetaminophen (Harvey) 5-325 MG tablet(Started 02/23/2022) Take 1 (one) tablet by mouth nightly as needed * lidocaine (Lidoderm) 4 % patch(Started 11/16/2022) Apply 1 (one) patch to skin every 24 hours * meloxicam (Mobic) 7.5 MG tablet(Started 11/27/2022) Take with food/milk.Obtain advice for OTCs.Do not take if . * spironolactone (Aldactone) 100 MG tablet(Started 09/04/2022) Take 1 (one) tablet by mouth * rimegepant (Nurtec) 75 MG tablet(Started 12/20/2022) Obtain advice for OTCs.Check with your doctor before becoming . * traZODone (Desyrel) 50 MG tablet(Started 09/26/2021) Take 1 (one) tablet by mouth at bedtime 16 refills remaining * Chelated Zinc 50 MG TABS Take 1 tablet by mouth once daily Active Problems No known active problems Social [...] Mass Index 21.74 01/22/2023 12:51 PM CDT Procedures * EMG WITH NERVE CONDUCTION STUDY(Performed 01/02/2023) Performed for Bilateral carpal tunnel syndrome * DERMATOPATHOLOGY(Performed 08/21/2022) Performed for Nonscarring hair loss, unspecified Results * EMG WITH NERVE CONDUCTION STUDY (01/02/2023 11:43 AM CDT) Narrative Poonam Salazar MD - 01/02/2023 11:43 AM CDT Poonam Salazar MD 01/02/2023 12:17 PM [facility] at [address], [address] Electromyography Report Full Name: Clara Olivarez Gender: Female Date of : 1975 Visit Date: 01/02/2023 10:38 AM Age: 47 Years Examining Physician: Poonam Salazar M.D. Referring Physician: Levy Brownlee MD Tech: ESTEVAN Campos Patient History/Exam: Query Entrapment Neuropathy vs. Radiculopathy Sensory NCS Nerve / Sites Rec. Site Onset Lat Peak Lat O-P Amp Segments Dist. Peak Diff Eric. ms ms V cm ms m/s R Radial - Anatomical snuff box (Forearm) Forearm Wrist 1.7 2.3 63.1 Forearm - Wrist 10 59 Ref. ?2.9 ?15.0 Ref. L Radial - Anatomical snuff box (Forearm) Forearm Wrist 1.8 2.4 65.3 Forearm - Wrist 10 55 Ref. ?2.9 ?15.0 Ref. R Median, Ulnar - Transcarpal comparison Median Palm Wrist 1.7 2.2 37.0 Median Palm - Wrist 8 48 Ref. ?2.2 ?10.0 Ref. Ulnar Palm Wrist 1.4 2.0 33.0 Ulnar Palm - Wrist 8 58 Ref. ?2.2 ?5.0 Ref. Median Palm - Ulnar Palm 0.2 Ref. ?0.4 L Median, Ulnar - Transcarpal comparison Median Palm Wrist 1.7 2.2 35.7 Median Palm - Wrist 8 47 Ref. ?2.2 ?10.0 Ref. Ulnar Palm Wrist 1.5 2.1 25.5 Ulnar Palm - Wrist 8 54 Ref. ?2.2 ?5.0 Ref. Median Palm - Ulnar Palm 0.1 Ref. ?0.4 Motor NCS Nerve / Sites Muscle Latency Amplitude Amp % Duration Segments Distance Lat Diff Velocity ms mV % ms cm ms m/s R Median - APB Wrist APB 3.79 10.8 100 6.65 Wrist - APB 7 Ref. ?4.40 ?4.0 Ref. Elbow APB 7.94 9.7 89.3 7.10 Elbow - Wrist 21 4.15 51 Ref. Ref. ?49 L Median - APB Wrist APB 4.17 4.8 100 7.48 Wrist - APB 7 Ref. ?4.40 ?4.0 Ref. Elbow APB 7.69 4.3 89.6 7.60 Elbow - Wrist 19 3.52 54 Ref. Ref. ?49 R Ulnar - ADM Wrist ADM 2.83 14.1 100 7.67 Wrist - ADM 7 Ref. ?3.60 ?5.0 Ref. B.Elbow ADM 5.98 14.1 100 7.79 B.Elbow - Wrist 19 3.15 60 Ref. Ref. ?49 A.Elbow ADM 7.46 13.8 97.8 7.90 A.Elbow - B.Elbow 10 1.48 68 Ref. Ref. ?49 L Ulnar - ADM Wrist ADM 2.88 13.6 100 7.56 Wrist - ADM 7 Ref. ?3.60 ?5.0 Ref. B.Elbow ADM 5.90 12.9 94.9 7.88 B.Elbow - Wrist 18.5 3.02 61 Ref. Ref. ?49 A.Elbow ADM 7.48 12.7 93.1 7.65 A.Elbow - B.Elbow 10 1.58 63 Ref. Ref. ?49 EMG Summary Table Spontaneous MUAP Recruitment Muscle Nerve Roots IA Fib PSW Fasc Amp Dur. Poly Pattern R. First dorsal interosseous Ulnar C8-T1 Nml Nml Nml 0 Nml Nml Nml Nml R. Extensor indicis proprius Radial C7-C8 Nml Nml Nml 0 Nml Nml Nml Nml R. Pronator teres Median C6-C7 Nml Nml Nml 0 Nml Nml Nml Nml R. Biceps brachii Musculocutaneous C5-C6 Nml Nml Nml 0 Nml Nml Nml Nml R. Triceps brachii Radial C6-C8 Nml Nml Nml 0 Nml Nml Nml Nml R. Cervical paraspinals (low) - Nml Nml Nml 0 Nml Nml Nml Nml R. Cervical paraspinals (mid) - Nml Nml Nml 0 Nml Nml Nml Nml R. Cervical paraspinals (up) - Nml Nml Nml 0 Nml Nml Nml Nml Summary The motor conduction test was normal in all 4 of the tested nerves: R Median - APB, L Median - APB, R Ulnar - ADM, L Ulnar - ADM. The sensory conduction test was performed on 4 nerve(s). The results were normal in 2 nerve(s): R Radial - Anatomical snuff box (Forearm), L Radial - Anatomical snuff box (Forearm). Results outside the specified normal range were found in 2 nerve(s), as follows: In the R Median, Ulnar - Transcarpal comparison study o the peak latency result was increased for Median Palm stimulation In the L Median, Ulnar - Transcarpal comparison study o the peak latency result was increased for Median Palm stimulation The needle EMG study was normal in all 8 tested muscles: R. First dorsal interosseous, R. Extensor indicis proprius, R. Pronator teres, R. Biceps brachii, R. Triceps brachii, R. Cervical paraspinals (low), R. Cervical paraspinals (mid), R. Cervical paraspinals (up). All studies were performed with a skin temperature of > 30 Celsius. Conclusion: 1) There is electrical evidence of a bilateral carpal tunnel syndrome (median neuropathy at or distal to the wrist). The changes are very mild in degree electrically. 2) There is no electrical evidence of a right cervical radiculopathy Bilateral empty can sign is suggestive of a rotator cuff syndrome, left more than right. Poonam Salazar MD, FAAN Board Certified, Electrodiagnostic and Neuromuscular Medicine Levy Brownlee MD NEUROLOGY ORDERABLES * DERMATOPATHOLOGY (08/21/2022 12:00 AM [facility]) Case Report Dermatopathology Report Case: [id number] Authorizing Provider: Manuela Cooley, Collected: 08/21/2022 12:00 AM DHARMESH Ordering Location: [facility] DermPath Lab Received: 08/22/2022 02:05 PM Pathologist: Madiha Negrete MD Specimen: Skin, left articular 3:23 PM [facility] DERMATOPATH[facility]Y [facility]OR[facility]ORY Final Diagnosis Specimen A. SKIN, left articular: NON-SCARRING ALOPECIA (L65.8) (see microscopic description and comment) 3 3:23 PM [facility] DERMATOPATHOLOGY [facility]ORAT[facility] Clinical History Alopecia Areata 3 3:23 PM [facility] DERMATOPATHOLOGY [facility]ORAT[facility] Gross Description Specimen A: Received is one formalin filled container labeled with the patient's name and designated left articular. The specimen consists of a punch biopsy measuring 4x4x3 mm. Jar 0. 3 3:23 PM [facility] DERMATOPATHOLOGY [facility]ORATORY Microscopic Description Specimen A. SKIN, left articular: Epidermis and dermis with minimal subcutaneous tissue is present for evaluation. There is a shift from anagen to non-anagen hairs. There is an overall decrease in follicular size as well as an increased number of vellus hairs. Sebaceous glands are present. No follicular units are replaced by fibrosis. Sebaceous glands are present. A mild perifollicular lymphocytic inflammatory infiltrate is present in the superficial dermis. The epidermis is normal. Verhoeff-Van Gieson (VVG) elastic stain highlights dermal elastic fibers without significant disruption. Additional deeper sections were obtained and reviewed. 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 Clinical correlation is recommended. 3 3:23 PM [facility] DERMATOPATHOLOGY [facility]ORATORY Disclaimer An external and internal positive and negative controls are appropriate for the histochemical, immunohistochemical and immunofluorescence stain(s) in this case (if any), except where stated explicitly. The performance characteristics of the stain(s) cited in this report were developed and its performance characteristic determined by the Dermatopathology Laboratory at [facility], directed by Dr. Robert Hughes. These tests need not be, and therefore are not, approved by the [place] Food and Drug Administration. The tests are used for clinical purposes. Billing Codes Specimen Charges Stain Charges 85294 1 95717 1 3 3:23 PM [facility] DERMATOPATHOLOGY [facility]OR[facility] Embedded Images 3 3:23 PM [facility] DERMATOPATHOLOGY [facility] Pathology/Cytolog y TISSUE SPECIMEN FROM SKIN / Unknown 08/21/2022 08/22/2022 2:05 PM [facility] Manuela Cooley PA-C LAB - PATHOL OGY/CYTOLOGY ORDERABLES DERMATOPATHOLOGY LABORATORY [facility] - Department of Dermatology [facility] Specialized Medicine [facility], [address]rd Floor [address] [phone] Care Teams Bottled Beverage Inspector Relationship Specialty Start Date End Date Bob Richmond PA [address] [id number] PCP - General Physician Farm Machinery Erector 01/02/23 [place] [address] [place] [id number] Neurological Surgery 01/22/23
--- OUTSIDE RECORDS SUMMARY | 2024-08-18 16:53 | XMS_ITS ---
Author Organization [facility] Address [address] [place] [address] Care Team Providers Care Medical Transcription Name Role Phone Unavailable Unavailable Unavailable Surgery Details Not on file Complications Check Surgery Details section. Procedure Estimated Blood Loss Check Surgery Details section. Procedure Findings Check Surgery Details section. Procedure Specimens Taken Check Surgery Details section.
--- OUTSIDE RECORDS SUMMARY | 2024-08-18 16:53 | XMS_ITS | Encounter Summary ---
Author Organization [facility] Address [address] [place] [address] Care Team Providers Care Renewals Manager Name Role Phone Unavailable Primary Care Provider Unavailabl e Prior Encounters Date Type Department Care Team Description 05/23/2021 Travel 05/23/2021 3:00 PM [facility] Office Visit [facility] [address], [place] [address] [place] [address] Dino Jin DDS 05/01/2021 Travel 05/01/2021 9:00 AM [facility] Office Visit [facility] [address], [place] [address] [place] [address] Denisse Garcia, [facility] 05/01/2021 9:00 AM [facility] Office Visit [facility] [address], [facility] [address] [place] [address] Dino Jin DDS 10/24/2020 Abstract 10/24/2020 Travel 10/24/2020 8:00 AM MST Office Visit [facility] [address], [facility] [address] [place] [address] Denisse Garcia, [facility] 10/24/2020 8:00 AM MST Office Visit [facility] [address], [facility] [place] [address] Dino Jin DDS 09/22/2020 Travel 09/22/2020 1:00 PM MST Office Visit [facility] [address], [facility] [place] [address] Davin, Don, DDS Last Filed Vital Signs Vital Sign Reading Time Taken Comments Blood Pressure 130/70 05/23/2021 2:58 PM M[facility] Pulse 58 05/23/2021 2:58 PM [facility] Temperature - - Respiratory Rate - - Oxygen Saturation - - Inhaled Oxygen Concentration - - Weight 55.3 kg (122 lb) 05/23/2021 2:58 PM MST Height 160 cm (5' 3 ) 05/23/2021 2:58 PM MST Body Mass Index 21.61 05/23/2021 2:58 PM MST Plan of Treatment Not on file Procedures Procedure Name Priority Date/Time Associated Diagnosis Comments CEMENT BRIDGE Routine 05/23/2021 3:00 PM MST ADDITIONAL X-RAY Routine 05/01/2021 9:00 AM MST 4 RETAINER CROWN - [facility] LAB MADE - POST Routine 05/01/2021 9:00 AM MST 2 RETAINER CROWN - [facility] LAB MADE - POST Routine 05/01/2021 9:00 AM MST 3 PONTIC - [facility] LAB MADE - POST Routine 05/01/2021 9:00 AM MST BITEWINGS - TWO RADIOGRAPHIC IMAGES Routine 05/01/2021 9:00 AM MST ORAL HYGIENE INSTRUCTIONS Routine 2020 9:00 AM MST TOPICAL APPLICATION OF FLUORIDE VARNISH Routine 05/01/2021 9:00 AM MST PROPHYLAXIS - ADULT Routine 05/01/2021 9 :00 AM MST PERIODIC ORAL EVALUATION - ESTABLISHED PATIENT Routine 05/01/2021 9:00 AM MST NC X-RAY Routine 10/24/2020 8:00 AM MST 31 CEMENT CROWN Routine 10/24/2020 8:00 AM MST 31 CORE BUILDUP, INCLUDING ANY PINS WHEN REQUIRED Routine 10/24/2020 8:00 AM MST 31 CEREC CROWN POST Routine 10/24/2020 8 :00 AM MST NC X-RAY Routine 10/24/2020 8:00 AM MST 12 CEMENT CROWN Routine 10/24/2020 8:00 AM MST 12 CORE BUILDUP, INCLUDING ANY PINS WHEN REQUIRED Routine 10/24/2020 8:00 AM MST 12 CEREC CROWN POST Routine 10/24/2020 8 :00 AM MST ADJUNCTIVE PRE-DIAGNOSTIC TEST THAT AIDS IN DETECTION OF MUCOSAL ABNORMALITIES Routine 10/24/2020 8:00 AM MST MARCOS DECON Routine 10/24/2020 8:00 AM MST TOPICAL APPLICATION OF FLUORIDE VARNISH Routine 10/24/2020 8:00 AM MST PROPHYLAXIS - ADULT Routine 10/24/2020 8 :00 AM MST LR ANTIBACT IRR/QUAD Routine 10/24/2020 8:00 AM MST LL ANTIBACT IRR/QUAD Routine 10/24/2020 8:00 AM MST UL ANTIBACT IRR/QUAD Routine 10/24/2020 8:00 AM MST UR ANTIBACT IRR/QUAD Routine 10/24/2020 8:00 AM MST INTRAORAL PHOTO Routine 10/24/2020 8:00 AM MST INTRAORAL PHOTO Routine 10/24/2020 8:00 AM MST INTRAORAL PHOTO Routine 10/24/2020 8:00 AM MST INTRAORAL PHOTO Routine 10/24/2020 8:00 AM MST INTRAORAL - COMPREHENSIVE SERIES OF RADIOGRAPHIC IMAGES Routine 10/24/2020 8:00 AM [facility] COMPREHENSIVE ORAL EVALUATION - NEW OR ESTABLISHED PATIENT Routine 10/24/2020 8:00 AM MST FULL MOUTH PROBE Routine 10/24/2020 8:00 AM MST 31 O AMALGAM FILLING Routine 10/24/2020 12:00 AM MST 19 MO AMALGAM FILLING Routine 10/24/2020 12:00 AM MST 13 MO AMALGAM FILLING Routine 10/24/2020 12:00 AM [facility] PANORAMIC RADIOGRAPHIC IMAGE Routine 09/22/2020 1:00 PM MST BITEWING - SINGLE RADIOGRAPHIC IMAGE Routine 09/22/2020 1:00 PM MST ADDITIONAL X-RAY Routine 09/22/2020 1:00 PM [facility] SINGLE X-RAY Routine 09/22/2020 1:00 PM MST LIMITED ORAL EVALUATION - PROBLEM FOCUSED Routine 09/22/2020 1:00 PM MST Visit Diagnoses Not on file
--- OUTSIDE RECORDS SUMMARY | 2024-08-18 16:53 | XMS_ITS ---
Author Organization [facility] Address [facility] [place] [address] [address] Care Team Providers Care Airport Operations Officer Name Role Phone Bob Richmond PA-C Primary Care Provider Unavail Delroy [facility] [phone] REASON FOR VISIT broken T6 Encounters Encounter Location Date Provider Diagnosis 1 OF Juanjo Garcia [place] [address] [place] [address] [address] 12/20/2023 Delroy Garcia Plan Of Treatment No Information Progress Notes * Clara GARCIADOB:1975 (48 yo F)Acc No.[id number]:12/20/2023 Progress Notes Patient: Clara HENDRIX Provider: Juanjo Garcia DPM :1975 A ge:48 Y S ex:Female Date:12/20/2023 Address:[address] [place], [place] [id number] Pcp:Bob Richmond PA-C Subjective: * Chief Complaints: * 1 . broken T6. * HPI: Livier Ramsey assisting with visit:: HPI/Rooming: . ..... P rimary reason for visit:: Pain level: R ight foot:, X /8. year old female PTO with chief complaint of of days weeks months duration aggravated by... * Medical History: Objective: * Vitals: * Examination: G eneral Examination: Constitutional / Appearance: N o acute distress , Well nourished, Appropriate personal hygiene. Mental status: C ooperative, Oriented to person, place and time, Mood and affect: normal, Judgement and intellect: normal with appropriate response to questions. Shoes today: X XXX. Exam unchanged from prior visit: w ith no significant changes in appearance or condition of feet . Assessment: Plan: * Treatment: * Images: * Electronic signature of Emmett Garcia DPM on 08/18/2024 at 04:53 PM HYDROGEN PLANT OPERATOR Sign off status: Pending * Provider: Juanjo Garcia DPM Date: 0 12/20/2023 Generated for Michael nuñez/Eloisa/Ian on: 0 08/18/2024 04:53 PM HYDROGEN PLANT OPERATOR History and Physical Notes * HPI (History of Present Illness) Category Sub-Category Detail Notes Category Not es Primary reason for visit: Pain level: Right foot:, X /8 year old female PTO with chief complaint of of days weeks months duration aggravated by... MA assisting with visit: HPI/Rooming: ..... Examination Category Sub-Category Detail Notes Category Not es General Examination Mental status: Cooperative, Oriented to person, place and time, Mood and affect: normal, Judgement and intellect: normal with appropriate response to questions Shoes today: XXXX Exam unchanged from prior visit: with no significant changes in appearance or condition of feet Constitutional / Appearance: No acute di stress , Well nourished, Appropriate personal hygiene
--- OUTSIDE RECORDS SUMMARY | 2024-08-18 16:53 | XMS_ITS ---
Author Organization [facility] Address [address] [facility] [address] [place] [address] Care Team Providers Care Promotions Producer Name Role Phone Carlos Rodriguez Unavailable [phone] Meghan BARON, Lavon Unavailable Unavail able REASON FOR VISIT DCS - - schedule Encounters Encounter Location Date Provider Diagnosis -[facility] [address] [facility] [address] [place] [address] 02/20/2023 Carlos Rodriguez Plan Of Treatment No Information Progress Notes * GARCIA ClaraDOB:1975 (47 yo F)Acc No.[id number]:02/20/2023 Patient: Clara Antony :1975 A ge:47 Y S ex:Female Address:[facility] [address] , [place], [address] * true * Date: Generated for Arturoi savannah/Faelfegog/eTransmitting on: 0 08/18/2024 04:53 PM MERCHANT MILL UTILITY WORKER
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
--- OUTSIDE RECORDS SUMMARY | 2024-08-18 16:53 | XMS_ITS | Encounter Summary ---
Author Organization [facility] Address [address] [place] [address] Care Team Providers Care Propagation Worker Name Role Phone Unavailable Primary Care Provider Unavailabl e Encounter Details Date Type Department Care Team (Latest Contact Info) Description 10/24/2020 Abstract Social History Tobacco Use Types Packs/Day Years Used Date Smoking Tobacco: Former Cigarettes Smokeless Tobacco: Never Alcohol Use Standard Drinks/Week Comments Yes 0 (1 standard drink = 0.6 oz pur e alcohol) Social Comments Unknown Sex and Gender Information Value Date Recorded Sex Assigned at Not on file Legal Sex Female 10:04 AM PDT Gender Identity Not on file Sexual Orientation Not on file COVID-19 Exposure Response Date Recorded In the last month, have you been in contact with someone who was confirmed or suspected to have Coronavirus / COVID-19? No / Unsure 10/24/2020 7:39 AM PDT documented as of this encounter Plan of Treatment Not on file documented as of this encounter Visit Diagnoses Not on filedocumented in this encounter
--- OUTSIDE RECORDS SUMMARY | 2024-08-18 16:53 | XMS_ITS | Referral Summary ---
Author Organization [facility] Address [address] [place] [address] Care Team Providers Care Meat Products Demonstrator Name Role Phone Unavailable Primary Care Provider Unavailabl e Allergies No known active allergies Medications biotin 5 mg capsule Take 5 mg by mouth 1 (one) time each day. Active traMADoL (ULTRAM) 50 mg tablet Take 50 mg by mouth every 6 (six) hours if needed. Active traZODone (DESYREL) 50 mg tablet Take 50 mg by mouth 1 (one) time each day. Active Active Problems Problem Noted Date Diagnosed Date Adverse effect of iron and its compounds, initia l encounter 01/27/2019 Iron deficiency anemia due to dietary causes Social History Tobacco Use Types Packs/Day Years Used Date Smoking Tobacco: Former Cigarettes Smokeless Tobacco: Never Tobacco Cessation:Counseling Given: No Alcohol Use Standard Drinks/Week Comments Yes 0 (1 standard drink = 0.6 oz pur e alcohol) Social Comments No Sex and Gender Information Value [...]
--- OUTSIDE RECORDS SUMMARY | 2024-08-18 16:53 | XMS_ITS ---
Author Organization [facility] Address [address] [place] [address] Care Team Providers Care Journeyman Painter Name Role Phone Bob Richmond PA-C Primary Care Provider Delroy [facility] Allergies No Known Allergies REASON FOR VISIT broken t6 Medications Medication SIG (Take, Route, Fr equency, Duration) Notes Start Date End Date Status Medrol (Ant) 4 MG as directed Orally a s directed for 6 days 02/05/2023 Active Vitamin D-3 Active Biotin Active Vitamin B 12 Active Spironolactone Activ e Mobic Active Zinc Active Aspirin Active Sertraline HCl 50 MG 1 tablet Orally Once a day Active Flexeril Active Vital Signs Height 63 in 12/30/2023 Weight 119 lbs 12/30/2023 BMI 21.08 kg/m2 12/30/2023 Encounters Encounter Location Date Provider Diagnosis 1 [facility] Juanjo Garcia [facility] [address] [place] [address] 12/30/2023 Delroy Garcia Assessments Encounter Date Diagnosis (ICD Code) Assessment Notes Treatment Notes Treatment Clinical Notes Section Notes 12/30/2023 Other Discussed with the Pt the course of broken toe healing, informing the Pt it might take a few months for the RT 2nd toe to completely heal. Discussed the improtance of comfortable shoes that are the correct size. Advised pt to continue wearing birkenstocks and to avoid close toed shoes for a roughly a month, or until pain subsides. Recommended voltaren for pain and to apply topically prn. Pt f/u prn for this if any concerns arise. Plan Of Treatment Treatment Notes Assessment Notes Other Discussed with the P t the course of broken toe healing, informing the Pt it might take a few months for the RT 2nd toe to completely heal. Discussed the improtance of comfortable shoes that are the correct size. Advised pt to continue wearing birkenstocks and to avoid close toed shoes for a roughly a month, or until pain subsides. Recommended voltaren for pain and to apply topically prn. Pt f/u prn for this if any concerns arise. Next Appt Details Follow Up: prn, Reason: Progress Notes * Clara GARCIADOB:1975 (48 yo F)Acc No.[id number]:12/30/2023 Progress Notes Patient: Clara HENDRIX Provider: Juanjo Garcia DPM :1975 A ge:48 Y S ex:Female Date:12/30/2023 Address:[address] [place], [place] [id number] Pcp:Bob Richmond PA-C Subjective: * Chief Complaints: * 1 . Broken t6. * HPI: Livier Ramsey assisting with visit:: HPI/Rooming: Erick apple. X-rays: Erick apple. Cristofer franco reason for visit:: 48 year old female RTO with chief complaint of broken T6 of 6 weeks duration. Pt describes going to urgent care the day after injury, and dylan-taped the toe, then went to PCP, instructed to keep dylan-taping for 6/8 weeks. Pt reports that on 12/08/23, they felt a strong burning sensation at the site of injury, and went to urgent care and reports possible bone infection, w/ xrays done. Pt reports a pain level of 4/10, stating that standing too long or dylan-tapping it for too long aggravates the pain. P t reports taking Neproxin when needed for pain. * Medical History: A nemia, anxiety, arthitis, asthma, hernia, migraines. * Medications: T aking Sertraline HCl 50 MG Tablet 1 tablet Orally Once a day , Taking Flexeril , Taking Spironolactone , Taking Mobic , Taking Zinc , Taking Aspirin , Taking Vitamin D-3 , Taking Biotin , Taking Vitamin B 12 , Taking Medrol (Ant) 4 MG Tablet as directed Orally as directed , Discontinued Hydrocodone Bitartrate , Discontinued traZODone HCl , Medication List reviewed and reconciled with the patient * Allergies: N .K.D.A. Objective: * Vitals: W t:119lbs, Wt-k.98 kg, Ht: 63 in, BMI:21.08Index. * Examination: G eneral Examination: Constitutional / Appearance: N o acute distress , Well nourished, Appropriate personal hygiene. Mental status: C ooperative, Oriented to person, place and time, Mood and affect: normal, Judgement and intellect: normal with appropriate response to questions. Shoes today: B irkenstock slides slip ons. Exam unchanged from prior visit: w ith no significant changes in appearance or condition of feet . D iagnostic Studies: : X-rays of right lower extremity: 3 views of right foot: .? Assessment: Plan: * Treatment: * Procedure Codes: 7 3630 X-RAY FOOT (3 views), Modifiers: RT * Follow Up: p rn * Images: * Electronic signature of Emmett Garcia DPM on 08/18/2024 at 04:52 PM PLATE GRAINER APPRENTICE Sign off status: Pending * Provider: Juanjo Garcia DPM Date: 12/30/2023 Generated for Michael nuñze/Eloisa/Ian on: 0 08/18/2024 04:52 PM PLATE GRAINER APPRENTICE History and Physical Notes * HPI (History of Present Illness) Category Sub-Category Detail Notes Category Not es Primary reason for visit: 48 year old female RTO with chief complaint of broken T6 of 6 weeks duration. Pt describes going to urgent care the day after injury, and dylan-taped the toe, then went to PCP, instructed to keep dylan-taping for 6/8 weeks. Pt reports that on 12/08/23, they felt a strong burning sensation at the site of injury, and went to urgent care and reports possible bone infection, w/ xrays done. Pt reports a pain level of 4/10, stating that standing too long or dylan-tapping it for too long aggravates the pain. Pt reports taking Neproxin when needed for pain. MA assisting with visit: HPI/Rooming: Lonnie X-rays: Lonnie Examination Category Sub-Category Detail Notes Category Not es General Examination Mental status: Cooperative, Oriented to person, place and time, Mood and affect: normal, Judgement and intellect: normal with appropriate response to questions Shoes today: Benjystval slides s lip ons Exam unchanged from prior visit: with no significant changes in appearance or condition of feet Constitutional / Appearance: No acute di stress , Well nourished, Appropriate personal hygiene Diagnostic Studies: X-rays of right lower extremity: 3 views of right foot:
--- OUTSIDE RECORDS SUMMARY | 2024-08-18 16:53 | XMS_ITS | Clinical Summary ---
Author Organization [facility] Address [address] [place] [address] Care Team Providers Care Cane Feeder Name Role Phone Unavailable Primary Care Provider [...] 05/23/2021 2:58 PM MST Plan of Treatment Health Maintenance Due Date Last Done Comments Meningococcal B Vaccine Aged Out No l onger eligible based on patient's age to complete this topic
--- OUTSIDE RECORDS SUMMARY | 2024-08-18 16:53 | XMS_ITS | CCD ---
Author Organization [facility] Address [address] [place] [address] Care Team Providers Care Business Enterprise Officer Name Role Phone Unavailable Primary Care Provider [...] Cessation:Counseling Given: No Alcohol Use Standard Drinks/Week Yes 0 (1 standard drink = 0.6 oz pure alcohol) Comments No Sex and Gender Information Value [...]
--- OUTSIDE RECORDS SUMMARY | 2024-08-18 16:54 | XMS_ITS | Data Portability ---
Author Organization [place] - [employer], [facility] [place] [address] Address [address] [place] [address] Assessment Encounter Date Assessment Date Assessment LastModified by Organization Details LastModified Time 05/27/2019 05/27/2019 Sutures removed without incident and Steri-Strips applied. She is to continue nonweightbearing or heel touch weightbearing only in surgical shoe or walking boot. She can start getting the incision wet. She is to use the boot at all times except at rest. Instructed her on active and passive range of motion of the first metatarsal phalangeal joint. Reviewed the x-rays that she had done outside facility which showed hallux in proper alignment with no movement of hardware. Follow-up in 3-4 weeks with new x-rays Not available 06/02/2019 16:01:23 06/15/2019 06/15/2019 Reviewed the x-r ays from after the injury last week in the new x-rays prior to today's visit. No changes to the hardware and appears to be intact still. Osteotomy is still visualized and likely needs more healing. Continue passive stretching range of motion exercises of the first metatarsal phalangeal joint to prevent adhesions and stiffness. Continue postop shoe and follow-up in 4 weeks with new x-rays Follow-up in 3-4 weeks with new x-rays [email or web address] Not available 06/17/2019 12:23:41 07/13/2019 07/13/2019 Reviewed the x-r ays and discuss results with patient. Recommend that she perform passive range of motion exercises of the first metatarsal pharyngeal joint. Instructed her to use her fingers on the proximal phalanx to dorsiflex and plantar flex to maximal range of motion. Over the course of 2-3 months. Her range of motion improved. Patient can begin weightbearing as tolerated in regular shoes without a supportive with inserts. Avoid high heels and flat type shoes. Follow-up in 3-4 weeks with new x-rays [email or web address] Not available 07/13/2019 16:28:01 08/25/2019 08/25/2019 Recommend patien t continue to do passive range of motions of the first metatarsophalangeal joint and that stiffness and swelling can persist up to 6-8 months after surgery. Since she is progressing well with minimal pain and continue supportive shoe gear. 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 She is more concerned about the residual pain and inflammation around the joint. She is somewhat worried about a chronic infection. I assured the patient that there is no infection in the finger. I do think her burning pain is likely secondary to a nerve hypersensitivity. Usually, I would recommend desensitization with hand therapy, however given the current situation with [facility], she may have to wait for some time to see them. Instead, we went over things that she can do at home, including a lot of touching and rubbing of the area with different textures. Regarding the deformity, I have explained to her that this is difficult to treat. She did have the injury treated appropriately after the injury, but for whatever reason, the tendon did not heal properly. I have explained to her that there are surgical options, but there are risks involved, and the results can be suboptimal. If the deformity is only a mild annoyance, as it is in this case, I would not recommend any surgical intervention. We discussed that occasionally, we do have success with re-splinting, but she would have to wear it for another full eight weeks for 24 hours a day. She can do this if she wishes, or just accept the deformity. I will see the patient back on an as-needed basis if any problems arise. [email or web address] Not available 10/13/2019 11:55:40 Plan of Treatment Reminders Order Date Submit Date Provider Last Modified By Organization Details Last Modified Time Details Appointments None record ed. Lab None record ed. Referral None record ed. Procedures None record ed. Surgeries None record ed. Imaging XR, foot 019 06/15/20 19 [email or web address] [facility] [place] [address], [address], [address], [place], [address], 9 12:23:54 XR, foot 020 07/13/19 20 [email or web address] [facility] [place] [address], [address], [address], [place], [address], 0 10:47:39 XR, foot 020 08/25/19 20 [email or web address] [facility] [place] [address], [address], [address], [place], [address], 0 09:18:49 XR, hand 020 10/13/19 [email or web address] [facility] - [place] [address], [address], [address], [place], [address], 0 17:57:23 Medication Orders None record ed. Patient TargetsNo targets recorded. Patient InstructionsNo instructions recorded. Reason for Referral None Reported. Results Created Date Observation Date Name Description Value Unit Range Abnormal Flag Note LastModifiedBy Organization Detail LastModifiedTime 10/13/19 20 10/13/2019 XR, hand Result: Abnorm al Not Available [facility] [place] [address], [place], [address], 10/13/2019 11:50:58 06/15/20 19 06/15/2019 XR, foot Result: Hardwa re intact withou t failur e. Not Available [facility] [place] [address], [place], [address], 06/15/2019 10:37:00 07/13/19 20 07/13/2019 XR, foot Result: Hardwa re intact withou t loosen ing or signs of failur e. Osteot funmilayo site appear s to be healed and withou t signs of nonuni on. Not Available [facility] [address] [facility] [address], [place], [address], 07/13/2019 11:34:36 08/25/19 20 08/25/2019 XR, foot Result: First metata rsal osteot funmilayo healed withou t signs of nonuni on. Hardwa re intact with no signs of failur e. Not Available [facility] [address] [facility] [address], [place], [address], 08/25/2019 10:31:15 05/27/20 19 05/27/2019 XR, foot, 3 or more view No observ ation record ed. [facility] [place] [address], [place], [address], 07/13/2019 09:00:52 Result Notes None recorded. Problems Name Problem SNOMED Code Status Onset Date Resolution Date Notes Provider Name and Address Organization Details Recorded Time Asthma 448074855 Active 2018 Ebonie lcay [place] - [facility] 13:24:17 Osteoporosis 15576290 Active 2018 Ebonie lacy [place] - [facility] 13:24:36 Anemia 252401270 Active 2018 Ebonie lacy [place] - [facility] 13:24:44 Problem Notes None recorded. Procedures Surgical History Date Name Laterality Status Provider Name and Address Organization Details Recorded Time [facility] 10/13/2019 11:30:02 hernia repair completed [facility] - [facility] 10/13/2019 11:30:10 Gastric bypass for obesity completed Eunice [facility] - [facility], [facility] 10/13/2019 11:30:23 Imaging Results Imaging Date Name Status LastModified by Organiz ation Details LastModified Time 05/27/2019 XR, foot, 3 or more view completed [facility] [address], [place], [address], 07/13/2019 09:00:52 Procedure Notes None recorded. Medical Equipment None Reported. Allergies No known drug allergies Medications Name Sig Start Date Stop Date Status Note LastModified by Organization Details LastModified Time first-mouthwash blm suspension active Not Available Not Availab le Not Available trazodone 50 mg tablet active Not Available Not Available Not Available hydrocodone 5 mg-acetaminophen 325 mg tablet Take 1 tablet every 4-6 hours by oral route for 5 days. active Not Available Not Available No t Available promethazine 6.25 mg-codeine 10 mg/5 mL syrup active Not Available Not Avail able Not Available meclizine 12.5 mg tablet active Not Available Not Available No t Available tramadol 50 mg tablet active Not Available Not Available Not Available ketorolac 10 mg tablet active Not Available Not Available Not Available tamsulosin 0.4 mg capsule active Not Available Not Available N ot Available benzonatate 100 mg capsule active Not Available Not Available N ot Available ferrous sulfate 325 mg (65 mg iron) tablet active Not Available Not Available Not Available IBU 400 mg tablet active Not Available Not Available Not Available zolpidem 5 mg tablet active Not Available Not Available Not Available codeine sulfate 30 mg tablet active Not Available Not Available Not Available zolpidem 10 mg tablet active Not Available Not Available Not Available ketorolac 60 mg/2 mL intramuscular solution active Not Available Not Available Not Available morphine 15 mg immediate release tablet active Not Available Not Availab le Not Available ondansetron 4 mg disintegrating tablet active Not Available Not Available Not Available loratadine 10 mg tablet active Not Available Not Available Not Available diazepam 5 mg tablet active Not Available Not Available Not Available amoxicillin 875 mg-potassium clavulanate 125 mg tablet active Not Available Not Available No t Available Vitamin B-12 1,000 mcg tablet active Not Available Not Avail able Not Available Mucinex 600 mg tablet, extended release active Not Available Not Available Not Available Voltaren 1 % topical gel active Not Available Not Available Not Available Suprep Bowel Prep Kit 17.5 gram-3.13 gram-1.6 gram oral solution active Not Available Not Availabl e Not Available Vitals Date Recorded Body height Body mass index (BMI) Body weight Heart rate Systolic blood pressure Diastolic blood pressure Provider Name and Address Organization Details Last Updated DateTime 0 160.02 cm 22 kg/m2 88522.4 5 g 72 /min 106 mm[Hg] 76 mm[Hg] Ebonie Laddsheylanicholas graeme [place] [employer] 0 10:50:44 Date Recorded Body height Body mass index (BMI) Body weight Provider Name and Address Organization Details Last Updated DateTime 10/13/2019 160.02 cm 22.1 kg/m2 40200.05 g Eunice Prakashlo [place] - [employer] 10/13/2019 11:28:20 Social History None recorded. Functional Status None recorded. Mental Status None recorded. Family History Relationship Description Onset Age of this Age Resolved Age Notes LastModified by Organization Details LastModified Time Mother Blood coagulation disorder [email or web address] Not available 2019 11:28:41 Mother Diabetes mellitus [email or web address] Not available 2019 11:28:47 Mother Family history of malignant neoplasm [email or web address] Not available 2019 11:29:01 Mother History of hypertension [email or web address] Not available 01/2020 11:29:15 Mother Osteoporosis [email or web address] Not availa ble 10/13/2019 11:29:23 Mother Rheumatoid arthritis [email or web address] Not available 2019 11:29:33 Medical History Condition Response Irregular Heartbeat(Arrhythmias) Y Anemia Y Asthma Y Gynecological HistoryNo gynecological history recorded. Obstetrics History GPAL:G 0 P 0 0 0 0 Past Encounters Encounter ID Performer Location Encounter Start Date Encounter Closed Date Diagnosis/Indication Diagnosis SNOMED-CT Code Diagnosis ICD10 Code Diagnosis Note [id number] Efrem Proctor DPM [facility] - [place] [address] ,[address] [place] [address] 03/18/2019 13:01:17 03/18/2019 14:05:39 Acquired right hallux valgus 1095399369 51587 M20.11 Acquired e quinus deformity of foot 06235078 M21.6X9 [id number] Efrem Proctor DPM [facility] [place] [address] [place] [address] 05/27/2019 16:04:38 06/02/2019 17:16:18 Acquired right hallux valgus 0192112242 97924 M20.11 [id number] Efrem Proctor DPM [facility] [place] [address] [place] [address] 06/15/2019 10:33:58 06/15/2019 11:47:12 Pain in right foot 5439472726 01996 M79.671 Acquired r ight hallux valgus 2038329062 39399 M20.11 [id number] Efrem Proctor DPM [facility] - [place] [address] [place] [address] 07/13/2019 10:46:23 07/14/2019 18:06:19 Pain in right foot 4189926891 66585 M79.671 Foot pain 50807445 M79.6 71 Acquired r ight hallux valgus 0745434684 59404 M20.11 [id number] Efrem Proctor DPM [facility] - [place] [address] [place] [address] 08/25/2019 10:23:55 08/25/2019 16:57:03 Pain in right foot 2419735075 39088 M79.671 Foot pain 52133067 M79.6 71 Acquired r ight hallux valgus 6486787563 58889 M20.11 [id number] Adela Spicer MD [facility] [place] [address] [place] [address] 10/13/2019 10:58:20 10/15/2019 11:24:33 Pain in right hand 2912580648 34383 M79.641 [place] fin faye of right hand 5414348488 69033 M20.011 Right small finger Health Concerns Section Related Observation LastModified by Organization Detai ls LastModified Time None Recorded Concern Status LastModified by Organization Details LastModified Time None Recorded Advance Directives Directive None Recorded Payers Encounter Date Sequence Insurance Name Policy Number Policy Stanton Covered Member ID Stanton Member ID Guarantor Name 05/27/2019 1 [employer] () Clara Olivarez [id number] Clara Olivarez 06/15/2019 1 [employer] () Clara Olivarez [id number] Clara Olivarez 07/13/2019 1 [employer] () Clara Olivarez [id number] Clara Olivarez 08/25/2019 1 [employer] () Clara Olivarez [id number] Clara Olivarez 10/13/2019 1 [employer] () Clara Olivarez [id number] Clara Olivarez Notes Date Note Type Note Provider Name and Address Organization Details Recorded Time 05/27/2019 text/html 43-year-old yasir watson presents for postop visit of right foot status post [employer] bunionectomy. Date of surgery was May 15, 2019. Patient states he did very well with minimal pain. She has been nonweightbearing in a postop shoe. She has kept the dressings clean dry and intact. She has been applying ice pad the knee daily. She has no complaints today. Efrem Proctor DPM [address], [place], [address], [facility] - [employer] 06/02/2019 16:01:36 06/15/2019 text/html 43-year-old yasir watson presents for postop visit of right foot status post [employer] bunionectomy. Date of surgery was May 15, 2019. Patient relates that she had a fall the same day as the last appointment. She had swelling and pain and she was sent for new x-rays same day to make sure she did not injure the toe. She states that the pain has resolved since the fall and she continues to do well. Efrem Proctor DPM [address], [place], [address], [facility] [employer] 06/17/2019 12:24:49 07/13/2019 text/html 43-year-old ysair watson presents for postop visit of right foot status post [employer] bunionectomy. Date of surgery was May 15, 2019. Patient relates much improvement since last visit. She has been weightbearing in a postop shoe. She does relate some stiffness to the big toe joint. Efrem Proctor DPM [address], [place], [address], [facility] [employer] 07/13/2019 16:28:35 08/25/2019 text/html 43-year-old yasir watson presents for postop visit of right foot status post [employer] bunionectomy. Date of surgery was May 15, 2019. Patient states that the pain is very minimal and is worse at the end of the day when she is wearing high heels. When she is wearing supportive shoes she Denies any pain. Efrem Proctor DPM [address], [place], [address], [facility] [employer] 08/26/2019 09:19:05 10/13/2019 text/html The patient is a {{43# }}-year-old {{right* left}}-benson nd-dominant female who presents today for evaluation of a right small finger mallet finger injury. The injury occurred when using crutches after a right foot bunionectomy on 05/26/2019. The patient was seen by an orthopedic surgeon and wore a mallet splint full-time for eight weeks (has been off since the second week of September), but the flexion deformity of the finger never resolved. After the splint was removed, she developed a burning pain over the dorsal aspect of the small finger. She rates the pain {{5# }}/10 and describes it as constant. It is worse with touch or pressure on the area, such as when she is writing. She did have the orthopedic surgeon re-evaluate her, but they didn't know what else to tell her. She has been taking Tylenol for the pain. The patient is concerned about re-injuring the area. The patient [place] the [place] [facility] [place] She has a history of asthma and anemia. Adela Nayan, MD [address], [place], [address], [facility] - [facility] [employer], [facility] 10/13/2019 11:57:08 OBGyn Episode No OBEpisode recorded.
--- OUTSIDE RECORDS SUMMARY | 2024-08-18 16:55 | XMS_ITS ---
Author Organization [facility] Address [address] [place] [address] [facility]. [address] [place] [address] Care Team Providers Care Parking Enforcement Technician Name Role Phone Carlos Rodriguez Unavailable [phone] Meghan BARON, Lavon Unavailable Unavail able REASON FOR VISIT cervical TFESI holding ASA 6 days Encounters Encounter Location Date Provider Diagnosis -[facility]/ PHYS PA[facility] [address] [place] [address] [address] [place] [address] 03/06/2023 Carlos Rodriguez Plan Of Treatment No Information Progress Notes * Clara GARCIADOB:1975 (48 yo F)Acc No.[id number]:03/06/2023 Progress Note Patient: Clara HENDRIX Provider: Juanjo Rodriguez MD :1975 A ge:47 Y S ex:Female Date:03/06/2023 Address:[address] [place] [address] Alex [place]OPEZ [phone] Subjective: * Chief Complaints: * 1 . cervical TFESI holding ASA 6 days. * Medical History: Objective: * Vitals: Assessment: Plan: * Treatment: * Images: Billing Information: * Visit Code: * Procedure Codes: * Electronic signature of Carlos Rodriguez MD on 08/18/2024 at 04:54 PM [employer] INS[employer] Sign off status: Pending * Provider: Juanjo Rodriguez MD Date: 0 03/06/2023 Generated for Printi ng/Faxing/eTransmitting on: 0 08/18/2024 04:54 PM [employer] INSPECTOR
--- OUTSIDE RECORDS SUMMARY | 2024-08-18 16:55 | XMS_ITS ---
Author Organization 1 OF [facility] Address [address] [place] [address] Care Team Providers Care Wire Twister Name Role Phone Bob Richmond PA-C Primary Care Provider Delroy Juan Unavailable Allergies No Known Allergies REASON FOR VISIT F/u for RT joint swelling Medications Medication SIG (Take, Route, Fr equency, Duration) Notes Start Date End Date Status Biotin Active Vitamin B 12 Active traZODone HCl Active Medrol (Ant) 4 MG as directed Orally a s directed for 6 days 02/05/2023 Active Vitamin D-3 Active Hydrocodone Bitartrate Active Spironolactone Activ e Mobic Active Zinc Active Aspirin Active Flexeril Active Vital Signs Height 63 in 02/21/2023 Weight 120 lbs 02/21/2023 BMI 21.25 kg/m2 02/21/2023 Encounters Encounter Location Date Provider Diagnosis 1 OF [facility] [address] [place] [address] 02/21/2023 Delroy Garcia Pain in joint of right foot M25.571 ; Swelling of first metatarsophalangeal (MTP) joint of right foot M25.474 and Pain aggravated by walking R52 Assessments Encounter Date Diagnosis (ICD Code) Assessment Notes Treatment Notes Treatment Clinical Notes Section Notes 02/21/2023 Pain in joint of rig ht foot (ICD-10 - M25.571) 02/21/2023 Swelling of first metatarsophalangeal (MTP) joint of right foot (ICD-10 - M25.474) 02/21/2023 Pain aggravated by walking (ICD-10 - R52) 02/21/2023 Other Pt advised labs are unremarkable and as long as the condition continues to improve then no additional treatment necessary. Resume activities as tolerated. If condition recurs then patient should contact office for f/u and an MRI would probably be considered at that point Plan Of Treatment Treatment Notes Assessment Notes Other Pt advised labs are unremarkable and as long as the condition continues to improve then no additional treatment necessary. Resume activities as tolerated. If condition recurs then patient should contact office for f/u and an MRI would probably be considered at that point Next Appt Details Follow Up: prn, Reason: Progress Notes * Clara GARCIADOB:1975 (47 yo F)Acc No.[id number]:02/21/2023 Progress Notes Patient: Clara Antony Provider: Juanjo Garcia DPM :1975 A ge:47 Y S ex:Female Date:02/21/2023 Address:[address] [place] [address] [id number] Pcp:Bob Richmond PA-C Subjective: * Chief Complaints: * F /u for RT joint swelling * HPI: Livier Ramsey assisting with visit:: HPI/Rooming: Erick franco reason for visit:: Pain level: R ight foot: 0 /10. 47 y/o female RTO for f/u of swelling of the RT foot. At last visit, treatment consisted US exam and pt was advised to wear her cam walker boot with all WB activity until her next visit. Pt was also prescribed a Medrol dose pack and given an order for blood work. Will consider MRI at this visit if pain persists. Today pt reports that the swelling has gone down, however there is now discoloration located in the same area that the swelling was previously. Pt reports that there is not pain, but tenderness , between the hallux and second toe. Pt reports that she wore the CAM boot for a while and did finish the Medrol with no problems. Pt denies any injury to the foot. * Medical History: * Surgical History: R foot bunionectomy * Hospitalization/Major Diagno stic Procedure: * Family History: diabetes, gout, RA, blood clots, psoriasis, cancer. * Medications: T akingFlexeril Spironolactone Hydrocodone Bitartrate Mobic Zinc Aspirin Vitamin D-3 Biotin Vitamin B 12 traZODone HCl Medrol (Ant) 4 MG Tablet as directed Orally as directedMedication List reviewed and reconciled with the patientTaking Flexeril Taking Spironolactone Taking Hydrocodone Bitartrate Taking Mobic Taking Zinc Taking Aspirin Taking Vitamin D-3 Taking Biotin Taking Vitamin B 12 Taking traZODone HCl Taking Medrol (Ant) 4 MG Tablet as directed Orally as directedMedication List reviewed and reconciled with the patient * Allergies: N .K.D.A.no[Allergies Verified] Objective: * Vitals: W t:120 lbs, Wt-k.43 kg, Ht: 63 in, BMI:21.25 Index. * P ast Orders: L ab:Uric Acid, Serum (Order Date - 02/05/2023) (Collection Date - 02/05/2023) Result: 4.5 WNL L ab:Chem-12 (complete metabolic panel) (Order Date - 02/05/2023) (Collection Date - 02/05/2023) Result: AST 39 (H), ALT 58 (H) all others WNL L ab:CBC (Order Date - 02/05/2023) (Collection Date - 02/05/2023) Result: All WNL * Examination: G eneral Examination: Constitutional / Appearance: N o acute distress , Well nourished, Appropriate personal hygiene. Mental status: C ooperative, Oriented to person, place and time, Mood and affect: normal, Judgement and intellect: normal with appropriate response to questions. Shoes today: C rocs. Exam unchanged from prior visit: e xcluding: Decreased swelling noted to the dorsal right forefoot with faint ecchymosis noted but no erythema. Mild tenderness noted with palpation to the first intermetatarsal space. No palpable masses appreciated.. Assessment: * Assessment: 1. P ain in joint of right foot - M25.571 (Primary) 2 . S welling of first metatarsophalangeal (MTP) joint of right foot - M25.474 3 . 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 At last visit, treatment consisted US exam and pt was advised to wear her cam walker boot with all WB activity until her next visit. Pt was also prescribed a Medrol dose pack and given an order for blood work. Will consider MRI at this visit if pain persists. Today pt reports that the swelling has gone down, however there is now discoloration located in the same area that the swelling was previously. Pt reports that there is not pain, but tenderness , between the hallux and second toe. Pt reports that she wore the CAM boot for a while and did finish the Medrol with no problems. Pt denies any injury to the foot. MA assisting with visit: HPI/Rooming: Tessa Examination Category Sub-Category Detail Notes Category Not es General Examination Mental status: Cooperative, Oriented to person, place and time, Mood and affect: normal, Judgement and intellect: normal with appropriate response to questions Shoes today: Crocs Exam unchanged from prior visit: excludi ng: Decreased swelling noted to the dorsal right forefoot with faint ecchymosis noted but no erythema. Mild tenderness noted with palpation to the first intermetatarsal space. No palpable masses appreciated. Constitutional / Appearance: No acute di stress , Well nourished, Appropriate personal hygiene
--- OUTSIDE RECORDS SUMMARY | 2024-08-18 16:56 | XMS_ITS | Encounter Summary ---
Author Organization [facility] Address [address] [place] [address] Phone Care Team Providers Care Manager Printing Name Role Phone Bob Richmond LUCY Primary Care Provider [phone] Kenny Alvarez MD Unavailable [phone] Encounter Details Date Type Department Care Team (Late st Contact Info) Description 01/22/2024 Telephone [facility] [address] [address] Kenny Alvarez MD [address] [place] [phone] Social History Tobacco Use Types Packs/Day Years Used Date Smoking Tobacco: Former Cigarettes Q uit: 1997 Smokeless Tobacco: Never PHQ-2 Answer Date Recorded Total Score - Questions 1-9 0 10/07 Comments No Sex and Gender Information Value Date Recorded Sex Assigned at Not on file Legal Sex Female 12:55 PM CDT Gender Identity Not on file Sexual Orientation Not on file documented as of this encounter Plan of Treatment Upcoming Encounters Date Type Department Care Team (Late st Contact Info) Description 01/18/2025 2:45 PM CDT Lab [facility] [address] [address] Lab, [facility] 01/18/2025 3:00 PM CDT Office Visit [facility] [address] [address] Kenny Alvarez MD [address] [place] [phone] documented as of this encounter Visit Diagnoses Not on filedocumented in this encounter Care Teams Manager Printing Relationship Specialty Start Date End Date Bob Richmond PAC [address] [place] [id number] PCP - General Family Medicine 10/05/21 Kenny Alvarez MD [address] [place] [address] Consulting Physician Oncology 10/05/21 documented as of this encounter
--- OUTSIDE RECORDS SUMMARY | 2024-08-18 16:56 | XMS_ITS | Patient Health Record ---
Author Organization 1 OF [facility] bel[facility] Address [address] [place] [address] Care Team Providers Care Commissioning Editor Name Role Phone Bob Richmond PA-C Primary Care Provider Unavail able Delroy Garcia Unavailable Allergies No Known Allergies Reason For Referral Reason Eval/diagnostic/herber tment Referring Provider First Name Bob Referring Provider Last Name Basilio Referring Provider Speciality Physician Theatrical Rigger Referred Organization 1 OF Juanjo [facility]ac[facility] [employer] Referred Provider Abhilash Garcia Referred Address [address],[facility] [address],[place], [place],[address], Referred Provider Specialty Podiatry Referral Priority Routine Medications Medication SIG (Take, Route, Fr equency, Duration) Notes Start Date End Date Status Sertraline HCl 50 MG 1 tablet Orally Once a day Active Medrol (Ant) 4 MG as directed Orally a s directed for 6 days 02/05/2023 Active Flexeril Active Spironolactone Activ e Mobic Active Zinc Active Aspirin Active Vitamin D-3 Active Biotin Active Vitamin B 12 Active Social History Tobacco Use: Social History Observation Description Date Details (start date - stop date) Never Smoker NA - NA Tobacco Use/Smoking Question Answer Notes Are you a nonsmoker Problems Problem Type SNOMED Code ICD Code Onset Dates Problem Status W/U Status Risk Notes Problem 346407702 Hallux valgus of left foot (M20.12) Active confirmed Problem 095557162 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 Problem 98225601 Vitamin D deficiency (E55.9) Active confirmed Problem 43304994 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 Plan Of Treatment No Information Insurance Providers Payer Name Payer Address Payer Phone Subscriber Number Group Number Insured Name Patient Relationship to Insured Coverage Start Date Coverage End Date [facility] Claims [address] [place] [address] [id number] Clara Olivarez Self - patient is the insured Medical (General) History Medical History History ICD Code anemia, anxiety, arthitis, asthma, herni a, migraines Surgical History Surgery Date(Month/Year) R foot bunionectomy
--- OUTSIDE RECORDS SUMMARY | 2024-08-18 16:56 | XMS_ITS | Clinical Summary ---
Author Organization [facility] Address [address], [address] [place] [address] Phone Care Team Providers Care Yarn Cleaner Name Role Phone Basilio Bob LUCY Primary Care Provider [phone] Kenny Alvarez MD Unavailable [phone] Allergies No known active allergies Medications Biotin 5 MG Capsule Take 5 mg by mouth daily. Active zinc gluconate 50 MG Tablet Take by mouth. Active Cholecalciferol 125 MCG (5000 UT) Tablet Active albuterol 108 (90 Base) MCG/ACT Aerosol Solution take by inhalation. Active spironolactone (ALDACTONE) 100 MG Tablet 3 Active aspirin 81 MG Chewable Tablet Take 81 mg by mouth daily. Active sertraline (ZOLOFT) 50 MG Tablet May cause drowsiness.T leesa or use exactly as directed.Obt ain advice for OTCs. 4 12/04/19 25 Active naproxen (NAPROSYN) 500 MG Tablet Take with food/milk.Ob tain advice for OTCs.May cause drowsiness/d izziness.Angie ck with your doctor before becoming . 4 11/14/19 25 Active zolpidem (AMBIEN) 5 MG Tablet Take 5 mg by mouth nightly as needed. Active ondansetron (ZOFRAN-ODT) 4 MG TABLET DISPERSIBLE Active Fluocinolone Acetonide 0.01 % Oil 4 Active VITAMIN D PO Take by mouth. 07/20/19 25 Discontinu ed(Med List Clean Up) Active Problems Problem Noted Date Diagnosed Date Elevated blood pressure reading 07/20/2024 Absolute anemia 08/15/2022 Encounters Date Type Department Care Team Description 07/22/2024 Results Follow-Up [facility] [address] [phone] Tali Chaudhary, PIG MACHINE OPERATOR, CHEF UNDER 07/20/2024 3:00 PM BOILER/CHILLER TECHNICIAN Office Visit [facility] [address] [phone] Madeline Solis, PIG MACHINE OPERATOR, CHEF UNDER Other iron deficiency anemia (Primary Dx) 07/20/2024 2:50 PM BOILER/CHILLER TECHNICIAN Lab [facility] [address] [phone] Lab, [facility] [place] Other iron deficiency anemia; Vitamin D deficiency 07/20/2024 Travel from Last 3 Months Immunizations Immunization Administration Dates Next Due Covid-19, Mrna, Lnp-s, Pf, 50 Mcg/0.5 Ml Dose ,08/12/2020 Influenza Vaccine, Quadrivalent, PF 05/10/2023,1 Influenza Vaccine,unspecified Formulation 2020 Influenza, Injectable, Quadrivalent 04/26/2020 Family History Medical History Relation Name Comments Anemia Mother Relation Name Status Comments Mother Social History Tobacco Use Types Packs/Day Years Used Date Smoking Tobacco: Former Cigarettes Q uit: 1997 Smokeless Tobacco: Never Tobacco Cessation:Counseling Given: Not Answered PHQ-2 Answer Date Recorded Total Score - Questions 1-9 0 10/07 Comments No Sex and Gender Information Value Date Recorded Sex Assigned at Not on file Legal Sex Female 12:55 PM CDT Gender Identity Not on file Sexual Orientation Not on file Last Filed Vital Signs Vital Sign Reading Time Taken Comments Blood Pressure 102/82 07/20/2024 2:58 PM BOILER/CHILLER TECHNICIAN Pulse 81 07/20/2024 2:58 PM BOILER/CHILLER TECHNICIAN Temperature 36.7 C (98 F) 07/20/2024 2:58 PM BOILER/CHILLER TECHNICIAN Respiratory Rate 18 07/20/2024 2:58 PM BOILER/CHILLER TECHNICIAN Oxygen Saturation 93% 07/20/2024 2:58 PM BOILER/CHILLER TECHNICIAN Inhaled Oxygen Concentration - - Weight 56 kg (123 lb 6.4 oz) 07/20/2024 2:58 PM BOILER/CHILLER TECHNICIAN Height 160 cm (5' 3 ) 07/20/2024 2:58 PM BOILER/CHILLER TECHNICIAN Body Mass Index 21.86 07/20/2024 2:58 PM BOILER/CHILLER TECHNICIAN Plan of Treatment Upcoming Encounters Date Type Department Care Team (Late st Contact Info) Description 01/18/2025 2:45 PM CDT Lab [facility] [address] [phone] Lab, [facility] 01/18/2025 3:00 PM CDT Office Visit [facility] [address] [phone] Kenny Alvarez MD [address] [place] [phone] Health Maintenance Due Date Last Done Comments Hepatitis C Virus (HCV) Screening 1973 Colonoscopy 2018 Colorectal Cancer Screening 2018 Cologuard 12/13/2023 Immunochemical Fecal Occult Blood 12/13/2023 Pneumococcal Immunization (50+ years) (1 of 1 - PCV) 12/13/2023 Zoster Immunization (1 of 2) 12/13/2023 Influenza Immunization (#1) 2024 11/0 09/2022, 04/24/2022, 03/29/2021, Additional history exists SARS-COV-2 Immunization ( season) 2024 08/18/2021, 08/18/2021, 09/09/2020, Additional history exists Mammogram 11/20/2024 11/20/2022 Respiratory Syncytial Virus (RSV) Immunization (Adult) (1 - 1-dose 75+ series) 2048 Hepatitis B Immunization Completed 006, 06/13/2005, 05/14/2005 TdaP Immunization Completed 10/13/2007 Cervical Cancer Screening (CCS) Discontinued Pap Smear Discontinued 03/22/2017 DTaP/Tdap/Td Immunization Discontinued 2017, 10/13/2007, 05/16/2005 HPV/Cotest Discontinued Meningococcal Immunization (ACWY) Aged Out No longer eligible based on patient's age to complete this topic Rotavirus Immunization Aged Out No lo nger eligible based on patient's age to complete this topic Procedures Procedure Name Priority Date/Time Associated Diagnosis Comments CBC WITH AUTO DIFF OH Routine 07/20/2024 2:44 PM BOILER/CHILLER TECHNICIAN CMP (COMPREHENSIVE METABOLIC PANEL) Routine 07/20/2024 2:44 PM BOILER/CHILLER TECHNICIAN Other iron deficiency anemia Vitamin D deficiency VITAMIN B12 Routine 07/20/2024 2:44 PM BOILER/CHILLER TECHNICIAN Other iron deficiency anemia Vitamin D deficiency FOLIC ACID (FOLATE) Routine 07/20/2024 2 :44 PM BOILER/CHILLER TECHNICIAN Other iron deficiency anemia Vitamin D deficiency FERRITIN Routine 07/20/2024 2:44 PM BOILER/CHILLER TECHNICIAN Other iron deficiency anemia Vitamin D deficiency IRON W/ IRON BINDING CAPACITY OH Routine 07/20/2024 2:44 PM BOILER/CHILLER TECHNICIAN Other iron deficiency anemia Vitamin D deficiency RETICULOCYTE COUNT (RETIC) Routine 07/20/2024 2:44 PM BOILER/CHILLER TECHNICIAN Other iron deficiency anemia Vitamin D deficiency from Last 3 Months Results * IRON W/ IRON BINDING CAPACITY OH (07/20/2024 2:44 PM BOILER/CHILLER TECHNICIAN) IRON 115 50 - 212 ug/dL [facility] UIBC 293 155 - 355 ug/dL [facility] TIBC 408 261 - 478 ug/dl [facility] % Saturation 28 20 - 50 % [facility] 07/20/2024 2:44 PM BOILER/CHILLER TECHNICIAN Narrative [facility] - 07/22/2024 11:31 AM BOILER/CHILLER TECHNICIAN Release to patient->Immediate us Tali Chaudhary APRN, CHEF UNDER LAB SEND OUTS Fin al Result [facility] [place] [address], [place] [phone] * (ABNORMAL) CBC WITH AUTO DIFF OH (07/20/2024 2:44 PM BOILER/CHILLER TECHNICIAN) WBC 4.1 4.0 - 10.0 10*3/uL [facility] HGB 12.9 11.2 - 15.7 g/dL [facility] HCT 39.9 34.1 - 44.9 % [facility] PLT 277 163 - 369 10*3/uL [facility] MPV 9.0(L) 9.4 - 12.4 fL [facility] RBC 4.35 3.93 - 5.22 10*6/uL [facility] MCV 92 79 - 95 fL [facility] MCH 29.7 25.6 - 32.2 pg [facility] MCHC 32.3 32.2 - 36.5 g/dL [facility] RDW 13.2 11.6 - 14.4 % [facility] Neutrophils % 46.5 36.0 - 66.0 % [facility] Lymphocytes % 41.2(H) 19.0 - 40.0 % [facility] Monocytes % 9.6 4.1 - 12.1 % [facility] Eosinophils % 1.5 0.0 - 3.5 % [facility] Basophils % 1.0 0.0 - 1.0 % [facility] Nucleated RBC 0 0 - 1 % [facility] Absolute Neutrophils 1.9 1.4 - 6.6 10*3/uL [facility] Absolute Lymphocytes 1.7 0.8 - 4.0 10*3/uL [facility] Absolute Monocytes 0.4 0.2 - 1.2 10*3/uL [facility] Absolute Eosinophils 0.1 0.0 - 0.4 10*3/uL [facility] Absolute Basophils 0.0 0.0 - 0.1 10*3/uL [facility] 07/20/2024 2:44 PM BOILER/CHILLER TECHNICIAN us Tali Chaudhary PIG MACHINE OPERATOR, CHEF UNDER LAB SEND OUTS Fin al Result [facility] * VITAMIN B12 (07/20/2024 2:44 PM BOILER/CHILLER TECHNICIAN) Vitamin B12 448 180 - 914 pg/mL [facility] Blood 07/20/2024 2:44 PM BOILER/CHILLER TECHNICIAN Narrative [facility] - 07/21/2024 3:23 PM BOILER/CHILLER TECHNICIAN Release to patient->Immediate us Tali Chaudhary APRN, CNP CHEMISTRY ORDERABLE S Final Result Performing Organization Address [facility] de Phone Number [facility] [place] [address], * RETICULOCYTE COUNT (RETIC) (07/20/2024 2:44 PM BOILER/CHILLER TECHNICIAN) Reticulocyte count 0.97 0.50 - 1.70 % [facility] RET-He 33.10 28.20 - 36.60 pg [facility] Comment: RET-He is a direct assessment of incorporation of iron into erythrocyte hemoglobin. It provides an indirect measure of the iron available for new erythropoiesis over past 2-4 days. Blood 07/20/2024 2:44 PM BOILER/CHILLER TECHNICIAN Narrative [facility] - 07/20/2024 2:53 PM BOILER/CHILLER TECHNICIAN Release to patient->Immediate us Tali Chaudhary APRN, CNP HEMATOLOGY ORDERABL ES Final Result Performing Organization Address [facility] Co de Phone Number [facility] [place] [address], [place] [phone] * FOLIC ACID (FOLATE) (07/20/2024 2:44 PM BOILER/CHILLER TECHNICIAN) Folate 16.68 >=5.90 ng/mL [facility] Blood 07/20/2024 2:44 PM BOILER/CHILLER TECHNICIAN May [facility] - 07/21/2024 3:23 PM BOILER/CHILLER TECHNICIAN Release to patient->Immediate IS THE PATIENT REQUIRED TO BE FASTING FOR 12 HOURS?->No Tali Chaudhary APRN, CHEF UNDER CHEMISTRY ORDERABLE S Final Result Performing Organization Address City/[facility]/ZIP Co de Phone Number [facility] [address] [address], [place] [phone] * FERRITIN (07/20/2024 2:44 PM BOILER/CHILLER TECHNICIAN) Ferritin 115 11 - 307 ng/mL [facility] Blood 07/20/2024 2:44 PM BOILER/CHILLER TECHNICIAN Narrative [facility] - 07/21/2024 3:23 PM BOILER/CHILLER TECHNICIAN Release to patient->Immediate Tali Chaudhary APRN, CHEF UNDER CHEMISTRY ORDERABLE S Final Result Performing Organization Address [facility] Co de Phone Number [facility] [address] [address], [place] [phone] * (ABNORMAL) CMP (COMPREHENSIVE METABOLIC PANEL) (07/20/2024 2:44 PM BOILER/CHILLER TECHNICIAN) Glucose 46(LL) 70 - 105 mg/dL [facility] Comment: Critical Result reported to Sophie Hernandez on 07/22/2024 12:43 by Flores Cooper. Results were read back to caller. Blood Urea Nitrogen 15 7 - 25 mg/dL [facility] Creatinine 0.7 0.6 - 1.2 mg/dL [facility] Sodium 142 136 - 145 mEq/L [facility] Potassium 4.2 3.5 - 5.1 mEq/L [facility] Chloride 106 98 - 107 mEq/L [facility] Bicarbonate 30 21 - 31 mEq/L [facility] Total Bilirubin 0.3 0.3 - 1.0 mg/dL [facility] Alk. Phosphatase 82 34 - 104 U/L [facility] Aspartate Aminotransferase 32 13 - 39 U/L [facility] Alanine Aminotransferase 45 7 - 52 U/L [facility] Total Protein 6.6 6.4 - 8.9 g/dL [facility] Albumin 4.5 3.5 - 5.7 g/dL [facility] Calcium 9.0 8.6 - 10.3 mg/dL [facility] Anion Gap 10.2 7.0 - 15.0 mEq/L [facility] Globulin 2.1 2.0 - 3.5 g/dL [facility] EGFR 105 >60 ml/min/1. 73m2 [facility] Comment: This eGFR is calculated using 2020 CKD-EPI Creatinine equation without race modifier based on the NKF-ASN task force recommendations Blood 07/20/2024 2:44 PM BOILER/CHILLER TECHNICIAN Narrative [facility] - 07/22/2024 12:43 PM BOILER/CHILLER TECHNICIAN Release to patient->Immediate IS THE PATIENT REQUIRED TO BE FASTING FOR 8 HOURS?->No Tali Chaudhary APRN, CHEF UNDER CHEMISTRY ORDERABLE S Final Result [facility] [address] [place] [address], from Last [address] [place] [place] [address] CLAIMS Care Teams Yarn Cleaner Relationship Specialty Start Date End Date Bob Richmond PAC [address] [address] PCP - General Family Medicine 10/05/21 Kenny Alvarez MD [address] [place] [phone] Consulting Physician Oncology 10/05/21
--- OUTSIDE RECORDS SUMMARY | 2024-08-18 16:56 | XMS_ITS | Continuity of Care Document ---
Author Name [facility] Organization [facility] Care Team Providers Care Biological Science Technician Name Role Phone [facility] Unavailable Unavailable Problems Combined list of problems [...] ORAL, TEVA [place], 500 ea. BOTTLE Active [id number] 2023 28 Pharmac y Data Transac [...] prescrip tion.Do not take if . 05/12/2024 [id number] 4 2023 4 [facility] [facility] Som [place] ([facility]) diazePAM 5 mg oral tablet See Instruct ions, PRN anxiety, take 1-2 tabs by mouth 30-60 minutes prior to flight as needed, # 10 tab(s), 0 total refill(s ), Acute, 01/16/21 2:00:00 AM CDT, Pharmacy : [facility] Complet ed 01/16/2021 10.0 0009C-5 6th [...] total refill(s ), Benitez arevalo, Pharmacy : [facility] Oral (given by mouth) Complet ed 04/24/2021 30.0 0009C-5 [facility] [facility] HYDROCODONE -ACETAMINOP HEN (HYDROCODON E/ACETAMINO PHEN), 5MG-325MG, TABLET, ORAL, MALLINCKROD T PH, 500 ea. BOTTLE Active [id number] 2023 20 Pharmac y Data Transac [...] PAR PHARM., 100 ea. BOTTLE Cancele d [id number] : 2023 0 Pharmac y Data Transac tion Service Facilit y Naproxen (Naprosyn) Tablet 500 mg Oral Take with food/mil k.Obtain advice for OTCs.May cause drowsine ss/dizzi ness.Angie ck with your doctor before becoming . Active 11/13/2024 [id number] 4 2023 50 [employer] [facility] Som [place] ([facility]) NAPROXEN (NAPROXEN), 500MG, TABLET, ORAL, LilaKutu PHARMA, 500 ea. BOTTLE Active [id number] 4 2023 40 Pharmac y Data Transac [...] directed .Obtain advice for OTCs. Active 12/03/2024 [id number] [address] [place] [address]) sertraline (U/D) 50 MG ORAL TAB May cause drowsine ss.Take or use exactly as directed .Obtain advice for OTCs. Active 09/16/2024 [id number] 4 [address] [place] [address]) sertraline (U/D) 50 MG ORAL TAB May cause drowsine ss.Take or use exactly as directed .Obtain advice for OTCs. 08/05/2024 [id number] 4 [address] [place] [address]) sertraline 50 mg tablet See Instruct ions, [...] directed .May cause drowsine ss/dizzi ness. 07/11/2024 [id number] 4 [address] [place] [address]) spironolact one 100 mg tablet 100 mg, [...] ), Benitez arevalo, Pharmacy : [facility] Oral (given by mouth) Ordered 90.0 0009C-5 [employer] traZODone 50 mg oral tablet TAKE ONE TABLET AT BEDTIME, # 90 EA, 1 total refill(s ), Acute Complet ed 01/22/2023 90.0 Ambulat ory Pharmac y TRAZODONE HCL (trazodone HCl), 100 MG, TABLET, ORAL, TEVSteelCloud [facility], 100 ea. BOTTLE Cancele d [id number] : 2023 0 Pharmac y Data Transac tion Service Facilit y Trazodone Hcl, 150mg, Tablet, Oral Take with food/mil k.Take or use exactly as directed .Obtain advice for OTCs.May cause drowsine ss/dizzi ness. 08/04/2024 [id number] 4 2023 30 [employer] [facility] Som [place] ([facility]) tretinoin 0.05% cream [20g] See Instruct ions, [...] prohibit s transfer of prescrip tion. 02/15/2024 [id number] 4 2023 30 [employer] [facility] Som [place] ([facility]) Allergies, Adverse Reactions, Alerts Combined list of [...] Site Reaction Lot Number CVX Code Drug Pulmonary Physical Therapist Status Comments Source SARS-COV-2 (COVID-19) vaccine, mRNA, spike protein, LNP, preservative free, 100 mcg or 50 mcg dose 1 2021 Unknown, Provider [id number] 207 [employer]. (MOD) complet ed SARS-COV- 2 (COVID-19 ) vaccine, mRNA, spike protein, LNP, preservat caitlin free, 100 mcg or 50 mcg dose [facility] influenza virus vaccine, inactivated 2020 MISAEL REYNOLDS 88 complet ed influenza virus vaccine, inactivat ed 03/29/21 Recorded 0009C-5 [facility] [facility] SARS-COV-2 (COVID-19) vaccine, mRNA, spike protein, LNP, preservative free, 100 mcg or 50 mcg dose 1 2020 Unknown, Provider [id number] 207 [employer]. (MOD) complet ed SARS-COV- 2 (COVID-19 ) vaccine, mRNA, spike protein, LNP, preservat caitlin free, 100 mcg or 50 mcg dose DoD COVID Vaccine Moderna 2020 zzLef t Arm [id number] complet ed COVID Vaccine Moderna 08/12/20 Given Ambulat ory Pharmac y SARS-COV-2 (COVID-19) vaccine, mRNA, spike protein, LNP, preservative free, 100 mcg or 50 mcg dose 1 2020 Unknown, Provider [id number] 207 Moderna [employer] (MOD) complet ed SARS-COV- 2 (COVID-19 ) vaccine, mRNA, spike protein, LNP, preservat caitlin free, 100 mcg or 50 mcg dose DoD influenza, injectable, quadrivalent 2019 zzLef t Arm [id number] 158 Seqirus complet ed influenza , injectabl e, quadrival ent 04/26/20 Given Ambulat ory Pharmac y influenza, injectable, quadrivalent, contains preservative 1 2019 Unknown, Provider [id number] 158 Seqirus (SEQ) complet ed influenza , injectabl e, quadrival ent, contains preservat caitlin DoD influenza, injectable, quadrivalent- pf 2018 [facility] [id number] 150 Seqirus complet ed influenza , injectabl e, quadrival ent-pf 04/27/19 Given Ambulat ory Pharmac y Influenza, injectable, quadrivalent, preservative free 1 2018 Unknown, Provider [id number] 040 150 Seqirus (SEQ) complet ed Influenza , injectabl e, quadrival ent, preservat caitlin free DoD influenza, injectable, quadrivalent- pf 2017 [facility] [id number] 150 GlaxoSmithKli ne complet ed influenza , injectabl e, quadrival ent-pf 05/27/18 Given Ambulat ory Pharmac y Influenza, injectable, quadrivalent, preservative free 1 2017 Unknown, Provider [id number] 150 SmithKline (SKB) complet ed Influenza , injectabl e, quadrival ent, preservat caitlin free DoD tetanus-dipht h toxoids (Td) adult/adol 2017 zSmiley Arm [id number] 09 sanofi pasteur complet ed tetanus-d iphth toxoids (Td) adult/ado l 02/04/18 Given Ambulat ory Pharmac y tetanus and diphtheria toxoids, adsorbed, preservative free, for adult use (2 Lf of tetanus toxoid and 2 Lf of diphtheria toxoid) 3 2017 Unknown, Provider [id number] 09 Sanofi Pasteur (PMC) complet ed tetanus [...] influenza, seasonal, injectable 2015 zzRig ht Arm [id number] 1A 141 CSL Behring complet ed influenza , seasonal, injectabl e 03/14/16 Given Ambulat ory Pharmac y Influenza, seasonal, injectable 1 2015 Unknown, Provider [id number] 1A 141 CSL kalideaherapies, Inc. (CSL) complet ed Influenza , seasonal, injectabl e DoD hepatitis A adult vaccine 2014 zzLef t Arm [id number] 52 GlaxoSmithKli ne complet ed hepatitis A adult vaccine 04/04/15 Given Ambulat ory Pharmac y influenza, seasonal, injectable-pf 2014 zzLef t Arm [id number] 140 CSL Behring complet ed influenza , seasonal, injectabl e-pf 04/04/15 Given Ambulat ory Pharmac y hepatitis A vaccine, adult dosage 2 2014 Unknown, Provider [id number] [facility] (SKB) complet ed hepatitis A vaccine, adult dosage DoD Influenza, seasonal, injectable, preservative free 1 2014 Unknown, Provider [id number] 140 CSL Biotherapies, Inc. (CSL) complet ed Influenza , seasonal, injectabl e, preservat caitlin free DoD tuberculin purified protein derivative 2014 zzLef t Arm [id number] 96 sanofi pasteur complet ed Patient Tolerance : Positive Ambulat ory Pharmac y tuberculin skin test; purified protein derivative solution, intradermal 1 2014 Unknown, Provider [id number] 96 Sanofi Pasteur ([facility]) complet ed tuberculi n skin test; purified protein derivativ e solution, intraderm al DoD influenza, seasonal, injectable 2013 zzRig Arm [id number] 141 ID Biomedical complet ed influenza , seasonal, injectabl e 05/20/14 Given Ambulat ory Pharmac y Influenza, seasonal, injectable 1 2013 Unknown, Provider [id number] 141 (IDB) complet ed Influenza , seasonal, injectabl e DoD tuberculin purified protein derivative 2013 zzLef t Arm [id number] 96 sanofi pasteur complet ed Patient Tolerance : Negative Ambulat ory Pharmac y tuberculin skin test; purified protein derivative solution, intradermal 4 2013 Unknown, Provider [id number] 96 Sanofi Pasteur ([facility]) complet ed tuberculi n skin test; purified protein derivativ e solution, intraderm al DoD influenza, seasonal, injectable 2012 zzLef t Arm [id number] 1A 141 CSL Behring complet ed influenza , seasonal, injectabl e 03/23/13 Given Ambulat ory Pharmac y Influenza, seasonal, injectable 7 2012 Unknown, Provider [id number] 1A 141 CSL kalideaherapies, Inc. (CSL) complet ed Influenza , seasonal, injectabl e DoD measles/mumps /rubella virus vaccine 2012 zzLef t Thigh [id number] 03 Merck & Company Inc complet ed measles/m umps/rube lla virus vaccine 12/22/12 Given Ambulat ory Pharmac y measles, mumps and rubella virus vaccine 2 2012 Unknown, Provider [id number] 03 Merck (MSD) complet ed measles, mumps and rubella virus vaccine DoD poliovirus vaccine, inactivated 2012 zzSid Thigh [id number] 10 sanofi pasteur complet ed polioviru s vaccine, inactivat ed 12/17/12 Given Ambulat ory Pharmac y poliovirus vaccine, inactivated 1 2012 Unknown, Provider [id number] 10 Sanofi Pasteur ([facility]) complet ed polioviru s vaccine, inactivat ed [facility] tuberculin purified protein derivative 2012 zzRig ht Arm [id number] 96 [facility] Patient Tolerance : Negative Ambulat ory Pharmac y tuberculin skin test; purified protein derivative solution, intradermal 1 2012 Unknown, Provider [id number] 96 [place] (PD) complet ed tuberculi n skin test; purified protein derivativ e solution, intraderm al [facility] tuberculin purified protein derivative 2012 zzLef t Arm [id number] 96 [facility] Patient Tolerance : Inconclus caitlin Ambulat ory Pharmac y tuberculin skin test; purified protein derivative solution, intradermal 1 2012 Unknown, Provider [id number] 96 [place] (PD) complet ed tuberculi n skin test; purified protein derivativ e solution, intraderm al [facility] influenza virus vaccine,split 2009 [id number] CSL Behring complet ed influenza virus vaccine,s plit 03/23/10 Given Ambulat ory Pharmac y influenza virus vaccine, split virus (incl. purified surface antigen)-reti red CODE 1 2009 Unknown, Provider [id number] 15 CSKinestral TechnologiesapAwoX, Inc. (CSL) complet ed influenza virus vaccine, split virus (incl. purified surface antigen)- retired CODE [facility] Novel Influenza-H1N 1-09,live virus,nasal 2008 [id number] 125 Medimmune Inc comple t ed Novel Influenza -F3N0-11, live virus,jai al 04/29/09 Given Ambulat ory Pharmac y Novel Influenza-H1N 1-09, live virus for nasal administratio n 1 2008 Unknown, Provider [id number] 125 MedImmune, Inc. (MED) complet ed Novel Influenza -G2I6-72, live virus for nasal administr ation [facility] influenza virus vaccine, live 2008 [id number] 111 Medimmune Inc comple t ed influenza virus vaccine, live 03/25/09 Given Ambulat ory Pharmac y influenza virus vaccine, live, attenuated, for intranasal use 1 2008 Unknown, Provider [id number] 111 MedImmune, Inc. (MED) complet ed influenza virus vaccine, live, attenuate d, for intranasa l use [facility] influenza virus vaccine,split 2007 15 Medimmune Inc comple t ed influenza virus vaccine,s plit 04/23/08 Given Ambulat ory Pharmac y influenza virus vaccine, split virus (incl. purified surface antigen)-reti red CODE 1 2007 Unknown, Provider 15 MedImmTicies, Inc. (MED) complet ed influenza virus vaccine, split virus (incl. purified surface antigen)- retired CODE DoD tetanus, diphtheria, acellular pertu is 2007 zzLef t Arm [id number] 115 sanofi pasteur complet ed tetanus, diphtheri a, acellular pertussis 10/13/07 Given Ambulat ory Pharmac y tetanus toxoid, reduced diphtheria toxoid, and acellular pertu is vaccine, adsorbed 1 2007 Unknown, Provider [id number] 115 Sanofi Pasteur (PMC) complet ed tetanus toxoid, reduced diphtheri a toxoid, and acellular pertussis vaccine, adsorbed DoD influenza virus vaccine,split [facility] [id number] 15 sanofi pasteur complet ed influenza virus vaccine,s plit 04/30/07 Given Ambulat ory Pharmac y influenza virus vaccine, split virus (incl. purified surface antigen)-reti red CODE 1 2006 Unknown, Provider [id number] 15 Sanofi Pasteur (PMC) complet ed influenza virus vaccine, split virus (incl. purified surface antigen)- retired CODE DoD hepatitis A adult vaccine 2005 [facility] [id number] 52 GlaxoSmithKli ne complet ed hepatitis A adult vaccine 05/24/06 Given Ambulat ory Pharmac y hepatitis A vaccine, adult dosage 1 2005 Unknown, Provider [id number] 52 SmithKline (SKB) complet ed hepatitis A vaccine, adult dosage DoD tuberculin purified protein derivative 2005 zzL t Arm [id number] 96 sanofi pasteur complet ed Patient Tolerance : Negative Ambulat ory Pharmac y tuberculin skin test; purified protein derivative solution, intradermal 1 2005 Unknown, Provider [id number] 96 Sanofi Pasteur (PMC) complet ed tuberculi [...] vaccine 2004 zzLef t Arm [id number] 43 Familink ne complet ed hepatitis B adult vaccine 06/13/05 Given Ambulat ory Pharmac y hepatitis B vaccine, adult dosage 2 2004 Unknown, Provider [id number] [facility] (SKB) complet ed hepatitis B vaccine, adult dosage DoD influenza virus vaccine, whole virus 2004 zzLef t Arm [id number] 16 sanofi pasteur complet ed influenza virus vaccine, whole virus 05/21/05 Given Ambulat ory Pharmac y influenza virus vaccine, whole virus 1 2004 Unknown, Provider [id number] 16 Sanofi Pasteur ([facility]) complet ed influenza virus vaccine, whole virus DoD measles/mumps /rubella virus vaccine 2004 zzRig ht Thigh [id number] 03 Merck & Company Inc complet ed measles/m umps/rube lla virus vaccine 05/16/05 Given Ambulat ory Pharmac y tetanus-dipht h toxoids (Td) adult/adol 2004 zzLef t Thigh [id number] 09 sanofi pasteur complet ed tetanus-d iphth [...] of diphtheria toxoid) 1 2004 Unknown, Provider [id number] 09 Sanofi Pasteur (PMC) complet ed tetanus and diphtheri a toxoids, adsorbed, preservat caitlin free, for adult use (2 Lf of tetanus toxoid and 2 Lf of diphtheri a toxoid) DoD tuberculin purified protein derivative 2004 zzLef t Arm [id number] 96 sanofi pasteur complet ed Patient Tolerance [...] derivative solution, intradermal 1 2004 Unknown, Provider [id number] 96 Sanofi Pasteur (PMC) complet ed tuberculi n skin test; purified protein derivativ e solution, intraderm al DoD influenza virus vaccine, whole virus 2001 zzLef t Arm [id number] 16 sanofi pasteur complet ed influenza virus vaccine, whole virus 05/05/02 Given Ambulat ory Pharmac y influenza virus vaccine, whole virus 1 2001 Unknown, Provider [id number] 16 Sanofi Pasteur (PMC) complet ed influenza virus vaccine, whole virus DoD Results Combined list of recent chemistry, hematology and other laboratory results from Department of Defense and Veterans Affairs, ranging from 15 months to all on record, depending upon the facility. Order Name Results Value Reference Range Date Interpretation Specimen Comments Source Chemistry Vit B12 Lvl.LC 702 pg/mL 12/29 [facility] Chemistry Folate.LC 9.0 ng/mL 12/29 Result Comment: A serum folate concentratio n of less than 3.1 ng/mL is considered to represent clinical deficiency. Performed At: [facility] [address] [place] [address] [id number] Tomer Nieto MD Ph:[phone] [facility] Chemistry Vitamin B6.LC 6.0 ug/L 12/29 Result Comment: This test was developed and its performance characterist ics determined by [employer]. It has not been cleared or approved by the Food and Drug Administrati on. Performed At: [facility] [id number] Daniel Talavera MD Ph:[phone] [facility] Chemistry Iron 100.7 ug/dL 50.0 [...] 1.7 ratio 1.0 - 2.0 12/29 N [facility] Chemistry Magnesium Lvl 2.1 mg/dL 1.6 - 2.3 12/29 N [facility] Chemistry eGFR AA 121 mL/min 12/29 H [...] y takes patient sex into account, but [facility] cannot automaticall y adjust the formula for [...] to Pharmacy for assistance or more information. [facility] Chemistry eGFR Non-AA 105 mL/min 12/29 H [...] y takes patient sex into account, but [facility] cannot automaticall y adjust the formula for [...] for assistance or more information. [facility] Group Hematolog y Hemoglobin 12.8 g/dL 11.2 - 15.7 12/29 N [facility] Hematolog y MCH 29.6 pg 25.7 - 32.2 12/29 [facility] Group Hematolog y MCHC 33.5 g/dL 31.0 - 34.0 12/29 [facility] Group Hematolog y MCV 88.3 fL 81.0 - 99.0 12/29 [facility] Group Hematolog y MPV 7.4 fL 6.5 - 12.0 12/29 [facility] Group Hematolog y Platelets 269 K/mcL 150 - 400 12/29 [facility] Group Hematolog y RBC 4.32 10^6/u L 3.80 - 5.00591 12/29 [facility] Group Hematolog y RDW 13.5 % 11.6 - 14.4 12/29 [facility] Group Hematolog y WBC 4.6 K/mcL 4.5 - 11.0 12/29 [facility] Group Hematolog y Hematocrit 38.2 % 34.1 - 44.9 12/29 [facility] Group Hematolog y Basophil % Auto 1.0 % 0.0 - 3.0 12/29 [facility] Group Hematolog y Lymphocyte % Auto 42.7 % 16.0 - 43.5 12/29 Medical Group Hematolog y Monocyte % Auto 8.1 % 4.5 - 12.5 12/29 [facility] Group Hematolog y Neutrophil % Auto 45.2 % 43.4 - 76.6 12/29 N [id number] Medical Group Hematolog y [place] Absolute 0.4 0.2 - 0.9 12/29 N 000 [facility] Hematolog y Eos Absolute 0.1 0.0 - 0.5 12/29 N 000-56 [facility] Group Hematolog y Baso Absolute 0.0 [...] Group Hematolog y nRBC Absolute 0 12/29 000 [facility] Vital Signs Combined list of inpatient and outpatient Vital Signs from Department of Defense and Veterans Affairs, ranging from 12 months to all on record, depending upon the facility. Vital Sign Value Date Comments Source Systolic Blood Pressure 116 mm[Hg] 12/30/19 21 15:22:8C [facility] Diastolic Blood Pressure 76 mm[Hg] 021 15::8C [facility] Mean Arterial Pressure, Calc 89 mm[Hg] 12/29/2020 15:22:8C [facility] Peripheral Pulse Rate 64 bpm 12/29/2020 15:22:8C [facility] Respiratory Rate 16 br/min 12/29/2020 15::[address] Temperature Tympanic 36.6 Nusrat 12/29/2020 15:22:[address] BP Site Right arm 12/29/2020 15:22:8C [facility] Blood Pressure Manual Automatic 12/29/2020 15:22:8C[facility] Systolic Blood Pressure 116 mm[Hg] 01/06/20 21 15:30:[address] Diastolic Blood Pressure 75 mm[Hg] 021 15:30:[address] Mean Arterial Pressure, Calc 89 mm[Hg] 01/05/2021 15:30:[address] Peripheral Pulse Rate 57 bpm 01/05/2021 15:30:[address] [place] [address] Respiratory Rate 16 br/min 01/05/2021 15:30:[address] Temperature Oral 36.7 Nusrat 01/05/2021 15:30:00 [facility] Encounters Combined list of: 1) Encounters from Department of Veterans Affairs facilities going backup to the last 18 months, not all VA inpatient encounters are included; 2) Encounters from the Department of Defense facilities going backup to 280 months. Location Location Details Encounter Type Encounter Number Reason For Visit Attending Provider ADM Date DC Date Status Disposition Source [facility]) OUTPATIENT [id number] cold.jose r dyache x 1 wk JOSIEESTRELLITA Nakul 10/05 Sick at Home/Quarter s [facility]) [facility]) OUTPATIENT [id number] LFT HAND MAY BE BROKEN WANTS XRAY. ELVIRA GREENFIELD 11/13 Released w/o Limitations [facility]) [facility]) OUTPATIENT [id number] F/U TO XRAY ELVIRA GREENFIELD 11/20 Released w/o Limitations [facility]) [facility]) OUTPATIENT [id number] PAP ELVIRA GREENFIELD 03/28 Released w/o Limitations [facility]) [facility]) TELE CONSULT [id number] FYI OF TO MARIA TERESA BLACK 07/16 [facility]) [facility]) TELE CONSULT [id number] ABD ELVIRA Gaspar 07/16 [facility]) [facility]) TELE CONSULT [id number] referra MARIA TERESA Vázquez 08/20 [employer] [facility]) [facility] [facility]) OUTPATIENT [id number] cut finger KIN Mg, FE W 09/04 Released w/o Limitations [employer] [facility]) [facility] [facility]) TELE CONSULT [id number] cough MARIA TERESA JONES 10/01 [employer]) [facility]) TELE CONSULT [id number] poss stye on l eye PRATEEK JONES 10/11 Referred for Appointment [facility]) [facility]) TELE CONSULT [id number] MARIA TERESA JONES 11/20 Released to Self Care [employer] [facility]) [employer] [facility]) TELE CONSULT [id number] REFILL MED MARIA TERESA JONES 12/10 Medication Refill Forwarded [facility]) [facility]) OUTPATIENT [id number] FE LOZA W 12/31 Released w/o Limitations [employer] [facility]) [facility] OUTPATIENT [id number] RTN EXAM ANIVAL TRACEY 07/29 Released w/o Limitations [facility] OUTPATIENT [id number] RTN EXAM SHEREE GARCIA 08/29 Released w/o Limitations [facility]) OUTPATIENT [id number] sore throat SAL MOODY 02/12 Released w/o Limitations [employer] [facility]) [facility](Phy sical Therapy) OUTPATIENT [id number] L knee sprain IVAN DELEON 06/21 Released w/o Limitations [facility](P hysical Therapy ) [facility] Therapy) OUTPATIENT [id number] JAMA JARAMILLO 06/28 Released w/o Limitations [facility](P [facility]ical Therapy ) [facility](Phy sical Therapy) OUTPATIENT [id number] SANJUANITA SANCHEZ 07/05 Released w/o Limitations [facility](P [facility]ysical Therapy ) [facility] OUTPATIENT [id number] EYE EXAM CAROLINESHEREE PENNY Cristofer 03/16 Released w/o Limitations [facility] OUTPATIENT [id number] routine VINAY SOLOMON 06/14 Released w/o Limitations [facility]ann [facility] Not Used) TELE CONSULT [id number] Inbound record JOHNNIE DALE Livier 12/05 [facility]ale Not Used) [facility]) OUTPATIENT [id number] gastric bypass f/u, referra l-new to SARAI REICH 01/27 Released w/o Limitations [facility]) [facility] Medical [facility]) TELE CONSULT [id number] Notes Entered by: Juanjo SIERRA 17 Mar 2012 1300 ------- ------- ------- ------- -- medicat ion refill/ PHIL Henry 03/17 [facility]) [facility]) TELE CONSULT [id number] Notes Entered by: Juanjo SIERRA 16 May 2012 0747 ------- ------- ------- ------- -- med refill/ MARINA Joshi 05/16 [facility]) [facility]) OUTPATIENT [id number] insomni SARAI Villalobos 06/06 Released w/o Limitations [facility]) [employer] [facility]) OUTPATIENT [id number] INH MI FLEMING 12/17 Released w/o Limitations [facility] [employer]) TELE CONSULT [id number] Notes Entered by: Georgina DEUTSCH 23 Dec 2014 0909 ------- ------- ------- ------- -- Lab f/u (+Quant iferon) MESERET LUO 12/23 [facility] [facility]) [employer]([facility]) OUTPATIENT [id number] F/U Positiv e QFT - To Discuss LTBI Treatme nt Options OFELIA ISBELL 12/27 Released w/o Limitations [employer]([facility] [employer]([facility]) TELE CONSULT [id number] Notes Entered by: LENARD FLEMING 11 Apr 2015 1723 ------- ------- ------- ------- -- Latent TB follow up MI FLEMING 04/12 [employer]([facility]) [employer]([facility]) OUTPATIENT [id number] Medicat ion check RICKIE CHOU 03/19 Released w/o Limitations [employer]([facility]) [employer]([facility]) OUTPATIENT [id number] PAP - hyst in 2004 for cancer ADAM BULLOCK 03/21 Released w/o Limitations [employer](G yn [facility]) [employer]([facility]) OUTPATIENT [id number] Mild intermi ttent asthma, uncompl icated RIKI MARTINEZ 03/21 Released w/o Limitations [facility] [employer]([facility] Tm A-AD) TELE CONSULT [id number] Notes Entered by: KIMBERLY BLUE 02 Apr 2017 1217 ------- ------- ------- ------- -- Lab results SAMY BANKS 04/02 Referred for Appointment [facility]) TELE CONSULT [id number] Notes Entered by: ROYA HONG 10 Apr 2017 1427 ------- ------- ------- ------- -- ER VISIT JAMAAL GROSSMAN 04/10 Other Not Elsewhere Classified [facility]) [facility] Tm A-AD) OUTPATIENT [id number] Anxiety f/u RICKIE CHOU 04/12 Released w/o Limitations [facility]( [facility]) TELE CONSULT [id number] Notes Entered by: TURCIOS 23 Jul 2017 1043 ------- ------- ------- ------- -- Pos Quant JAMA RICH 07/23 Released to Self Care [facility]( light Medicin e Clinic) [facility]) TELE CONSULT [id number] Notes Entered by: Livier RESENDEZ 24 Jul 2017 1059 ------- ------- ------- ------- -- Normal Labs and Chest Xray JAMA RICH 07/24 Released to Self Care [facility](F light Medicin e Clinic) [facility] Tm A-AD) TELE CONSULT [id number] Notes Entered by: SANTIAGO COPELAND 25 Jul 2017 0947 ------- ------- ------- ------- -- Medicat ion Refill - 1 week left JAMAAL GROSSMAN 07/25 Other Not Elsewhere Classified [facility] Tm A-AD) [facility] Tm A-AD) OUTPATIENT [id number] Medicat ion refill - Anxiety - PRATEEK MORGAN 07/29 Released w/o Limitations [facility]( [facility]) [facility]) TELE CONSULT [id number] Notes Entered by: Erin RICH 29 Jul 2017 0851 ------- ------- ------- ------- -- JAMA Navarro 07/29 Released to Self Care [facility]( light Medicin e Clinic) [facility] Tm A-AD) TELE CONSULT [id number] Notes Entered by: CHRIS FORDE 28 Oct 2017 1317 ------- ------- ------- ------- -- Ashly huff request JAMAAL GROSSMAN 10/28 Other Not Elsewhere Classified [facility] Op Med [facility] Tm A-AD) [facility] Tm A-AD) TELE CONSULT [id number] Notes Entered by: SPENCER CARR 04 Dec 2017 0751 ------- ------- ------- ------- -- Urgent care follow- up JAMAAL GROSSMAN 12/04 Other Not Elsewhere Classified [facility]( [facility]) [facility] Med [facility] Tm D-AD) OUTPATIENT [id number] F/U for cold symptom s KIANA Beck 12/04 Released w/o Limitations [facility] Tm D-AD) [facility] Tm A-AD) TELE CONSULT [id number] Notes Entered by: LAVELL RIZVI SA 18 Dec 2017 1342 ------- ------- ------- ------- -- LB-NETW ORK RESULTS - PAIN MANAGEM ENT 11/13/17 PRATEEK MORGAN 12/18 [facility] Tm A-AD) [facility] Tm A-AD) TELE CONSULT [id number] Notes Entered by: SPENCER CARR 13 Jan 2018 1014 ------- ------- ------- ------- -- ER follow- up YANELY OLIVER 01/13 Referred for Appointment [facility] Medical [facility]) [address] [place] [address]([facility] Tm A-AD) OUTPATIENT [id number] ER F/U lt knee pain RONN MITCHELL 01/14 Released w/o Limitations [facility] Tm A-AD) [facility]) TELE CONSULT [id number] Notes Entered by: SPENCER CARR 23 Jan 2018 0735 ------- ------- ------- ------- -- Appoint ment request ALFONZO PLASCENCIA 01/23 Referred for Appointment [facility](G yn Clinic) [facility]) OUTPATIENT [id number] infecti on check MARIO ROCHA 01/23 Released w/o Limitations [facility](G yn [facility]) [facility]) TELE CONSULT [id number] Notes Entered by: Adelaide NATION 31 Jan 2018 0741 ------- ------- ------- ------- -- results YANELY OLIVER 01/31 Other Not Elsewhere Classified [employer]([facility]) [employer]([facility]m A-[facility]) TELE CONSULT [id number] Notes Entered by: KIMBERLY BLUE 10 Apr 2018 0842 ------- ------- ------- ------- -- ER F/U SOCRATES BANGURA 04/10 Released w/o Limitations [employer]([facility]m [facility]) [employer]([facility]m [facility]) OUTPATIENT [id number] ER f/u left chest/r ib/arm pain, hurt to breathe . PRATEEK MORGAN 04/10 Released w/o Limitations [facility] Tm A-AD) [employer]([facility] Tm A[facility]AD) OUTPATIENT [id number] Virtual RAD results [id number] PRATEEK MORGAN 04/18 Released w/o Limitations [facility] Tm A-AD) [facility](Bas e Operation al Med Clinic) TELE CONSULT [id number] Notes Entered by: NANCY MAR 29 Apr 2018 0926 ------- ------- ------- ------- -- NANCY Fish 04/29 Other Not Elsewhere Classified [employer](B [facility]se Operati onal Med Clinic) [employer]([facility] Tm A-AD) OUTPATIENT [id number] Sleepin g PRATEEK Miner 07/14 Released w/o Limitations [employer]([facility] Tm A-AD) [employer]([facility]) OUTPATIENT [id number] Fever SAVAGE BERNABE 10/15 Released w/o Limitations [facility](O ld [facility]) [employer]([facility] Tm A-AD) OUTPATIENT [id number] Medicat ion renewal sleep and travel meds PRATEEK MORGAN 10/17 Released w/o Limitations [employer]([facility] Tm A-AD) [employer]([facility]) OUTPATIENT [id number] Notes Entered by: Ashley WISE 11 Nov 2018 1003 ------- ------- ------- ------- -- NEAIRAM JACKSON 11/11 Released w/o Limitations [employer]([facility]) [employer]([facility] Tm A-AD) OUTPATIENT [id number] F/U on medicat ion PRATEEK MORGAN 11/20 Released w/o Limitations [employer]([facility] Tm A-AD) [employer]([facility] Tm A-AD) OUTPATIENT [id number] Per PRATEEK Green 12/26 Released w/o Limitations [employer]([facility] Tm A-AD) [employer]([facility] Tm A-AD) TELE CONSULT [id number] Notes Entered by: RUBI BLOOM 01 Jan 2019 0803 ------- ------- ------- ------- -- ER Follow up PRATEEK MORGAN 01/01 [facility] Tm A-AD) [employer]([facility] Tm A-AD) TELE CONSULT [id number] Notes Entered by: Juanjo MORGAN 07 Jan 2019 1556 ------- ------- ------- ------- -- Follow up PRATEEK MORGAN 01/07 [employer]([facility] Tm A-AD) [employer]([facility] Tm E Non-AD) OUTPATIENT [id number] Referra l for PodKATT Crabtree 02/23 Released w/o Limitations [employer]([facility] Tm E Non-AD) [employer]([facility] Med Clinic Team B Non-AD) TELE CONSULT [id number] Notes Entered by: ESTUARDO GUTIERREZ 17 Mar 2019 1544 ------- ------- ------- ------- -- Patient Call Back Request REJI CAMACHO 03/17 Referred for Appointment [employer](F am Med Clinic Team B Non-AD) [employer](Fam Med Clinic Team B Non-AD) OUTPATIENT [id number] surgery clearan ce - surg May 2019 GAYLE REVELES 04/06 Released w/o Limitations [facility](F am Med Clinic Team B Non-AD) [facility](Fam Med Clinic Team B Non-AD) OUTPATIENT [id number] Notes Entered by: HAILY CHAVES 14 Apr 2019 1307 ------- ------- ------- ------- -- walk in UTI REJI CAMACHO 04/14 Released w/o Limitations [facility](F am Med Clinic Team B Non-AD) [facility](Fam Med Clinic Team B Non-AD) OUTPATIENT [id number] C/o flasnk pain with blood in urine s/p UA done on 04/14/20 19 GAYLE REVELES 04/14 Released w/o Limitations [facility](F am Med Clinic Team B Non-AD) [facility](Fam Med Clinic Team B Non-AD) TELE CONSULT [id number] Notes Entered by: DEANNA REVELES 16 Apr 2019 1353 ------- ------- ------- ------- -- DEXA scan GAYLE REVELES 04/16 [facility](F am Med Clinic Team B Non-AD) [facility](Fam Med Clinic Team B Non-AD) TELE CONSULT [id number] Notes Entered by: DEANNA REVELES 28 Apr 2019 1226 ------- ------- ------- ------- -- CT results NAVI CACERES 04/28 Other Not Elsewhere Classified [employer](F am Med Clinic Team B Non-AD) [employer](Fam Med Clinic Team B Non-AD) TELE CONSULT [id number] Notes Entered by: PHIL RHOADES 07 May 2019 1043 ------- ------- ------- ------- -- Network Results - Podiatr y 03/18/19 in artifac ts and images. GAYLE REVELES 05/07 [employer](F am Med Clinic Team B Non-AD) [employer](Fam Med Clinic Team B Non-AD) TELE CONSULT [id number] Notes Entered by: DEANNA REVELES 12 May 2019 1613 ------- ------- ------- ------- -- DEXA scan SOCRATES BANGURA 05/12 Other Not Elsewhere Classified [employer](F am Med Clinic Team B Non-AD) [facility](Fam Med Clinic Team B Non-AD) TELE CONSULT [id number] Notes Entered by: SANTA OLIVO 08 Jun 2019 1104 ------- ------- ------- ------- -- UC Follow Up SOCRATES BANGURA 06/08 Referred for Appointment [facility](F am Med Clinic Team B Non-AD) [facility](Acu te Care Clinic) OUTPATIENT [id number] f/u for numbnes s in right pinkie, no sensati on/func tion. SAVAGE BERNABE 06/11 Released w/o Limitations [employer]([facility]) [employer](Ort hopedics Clinic) OUTPATIENT [id number] VISHNU CULLEN 06/17 Released w/o Limitations [employer](O rthoped ics Clinic) [employer]([facility] Tm A-AD) TELE CONSULT [id number] Notes Entered by: PHIL RHOADES 07 Jul 2019 1421 ------- ------- ------- ------- -- Network Results - Cardiol ogy-Ech o 06/15/19 in artifac ts and images. PRATEEK MORGAN 07/07 [employer]([facility] Tm A-AD) [employer](Fam Med Clinic Team B Non-AD) TELE CONSULT [id number] Notes Entered by: LILY THOMPSON 17 Jul 2019 1441 ------- ------- ------- ------- -- Network Results - Cardiol ogy 1.7.20 GAYLE REVELES 07/[employer](F am Med Clinic Team B Non-AD) [employer](Fam Med Clinic Team B Non-AD) TELE CONSULT [id number] Notes Entered by: GEOFF JUDD 17 Jul 2019 1529 ------- ------- ------- ------- -- Network results - Hematol ogy 9.17.19 in artifac ts and images. GAYLE REVELES 07/17 [employer](F am Med Clinic Team B Non-AD) [employer]([facility]) OUTPATIENT [id number] f/u R-small finger VISHNU CULLEN 08/07 Released w/o Limitations [employer](O rthoped ics Clinic) [facility]) OUTPATIENT [id number] f/u R-pinky VISHNU CULLEN 08/12 Released w/o Limitations [facility](O rthoped ics Clinic) [facility](Fam Med Clinic Team B Non-AD) OUTPATIENT [id number] Swellin g/pain r-pinky finger GAYLE REVELES 08/21 Released w/o Limitations [facility](F am Med Clinic Team B Non-AD) [employer](Fam Med Clinic Team B Non-AD) OUTPATIENT [id number] cough x 2 weeks GAYLE REVELES 09/08 Released w/o Limitations [facility](F am Med Clinic Team B Non-AD) [facility] Med Clinic Team B Non-AD) OUTPATIENT [id number] HEADACH E SOB BURNING SENSATI ON IN CHEST GAYLE REVELES 10/26 Released w/o Limitations [facility](F am Med Clinic Team B Non-AD) [facility] Med Clinic Team B Non-AD) TELE CONSULT [id number] Notes Entered by: DEANNA REVELES 30 Oct 2019 0734 ------- ------- ------- ------- -- COVID-1 9 results GAYLE REVELES 10/29 [facility](F am Med Clinic Team B Non-AD) [facility] Clinic Team B Non-AD) OUTPATIENT [id number] POC #[id number] 4/ [facility] GAYLE REVELES 12/09 Released w/o Limitations [facility](F am Med Clinic Team B Non-AD) [facility] Clinic Team B Non-AD) TELE CONSULT [id number] Notes Entered by: GEOFF JUDD 22 Dec 2019 1328 ------- ------- ------- ------- -- Network results - Orthope dics 4.7.20 in artifac ts and images. GAYLE REVLEES 12/21 [facility](F am Med Clinic Team B Non-AD) [facility] Clinic Team B Non-AD) TELE CONSULT [id number] Notes Entered by: SANTA OLIVO 31 Dec 2019 0727 ------- ------- ------- ------- -- ER Follow Up CAREY LUNA 12/30 Referred for Appointment [facility](F am Med Clinic Team B Non-AD) [facility] Med Clinic Team B Non-AD) OUTPATIENT [id number] ER follow- up, complai nts of migrain s w/GAYLE Richter 12/30 Released w/o Limitations [employer](F am Med Clinic Team B Non-AD) [employer](Fam Med Clinic Team B Non-AD) TELE CONSULT [id number] Notes Entered by: CHRIS FORDE 11 Feb 2020 1221 ------- ------- ------- ------- -- Appoint ment request SOCRATES BANGURA 02/10 Referred for Appointment [employer](F am Med Clinic Team B Non-AD) [facility](Fam Med Clinic Team B Non-AD) OUTPATIENT [id number] Left ear pain and slight bleedin g, no hearing impairm ent. KATT TILLEY 02/10 Released w/o Limitations [facility](F am Med Clinic Team B Non-AD) [facility](Fam Med Clinic Team B Non-AD) OUTPATIENT [id number] foolow up - ear KATT TILLEY 02/22 Released w/o Limitations [facility](F am Med Clinic Team B Non-AD) [facility](Fam Med Clinic Team B Non-AD) TELE CONSULT [id number] Notes Entered by: DEANNA REVELES 18 Mar 2020 0733 ------- ------- ------- ------- -- Back pain GAYLE REVELES 03/18 [facility](F am Med Clinic Team B Non-AD) [facility](Fam Med Clinic Team B Non-AD) TELE CONSULT [id number] Notes Entered by: PHIL BURGESS 24 Mar 2020 1001 ------- ------- ------- ------- -- Medicat ion request for flying CAREY SIDDIQUI 03/24 [facility](F am Med Clinic Team B Non-AD) [facility](Fam Med Clinic Team B Non-AD) OUTPATIENT [id number] Annual physica l, review labs, and request med for flying. KATT TILLEY 03/25 Released w/o Limitations [facility](F am Med Clinic Team B Non-AD) Medical Group([facility] Med Clinic Team B Non-AD) TELE CONSULT [id number] Notes Entered by: HAILY CHAVES 15 Apr 2020 0732 ------- ------- ------- ------- -- usha gallardo on thyroid f/u HIMA HAWK 04/15 Other Not Elsewhere Classified [employer](F am Med Clinic Team B Non-AD) [facility] Med Clinic Team B Non-AD) TELE CONSULT [id number] Notes Entered by: KATT TILLEY 21 Apr 2020 0755 ------- ------- ------- ------- -- Lab Results JOHNNIE YOUNG 04/21 Referred for Appointment [facility](F am Med Clinic Team B Non-AD) [facility] Health Clinic Tm E Non-AD) OUTPATIENT [id number] FARIBA Walker 04/22 Released w/o Limitations [facility](F am Health Clinic Tm E Non-AD) [facility] Med Clinic Team B Non-AD) TELE CONSULT [id number] Notes Entered by: KATT TILLYE 27 Apr 20202008 ------- ------- ------- ------- -- Results RHONDA HERNANDEZ 04/28 Referred for Appointment [facility](F am Med Clinic Team B Non-AD) [facility] Med Clinic Team B Non-AD) OUTPATIENT [id number] ULTRASO UND FOLLOW UP KATT TILLEY 04/28 Released w/o Limitations [facility](F am Med Clinic Team B Non-AD) [facility] Clinic Team B Non-AD) TELE CONSULT [id number] Notes Entered by: GEOFF JUDD 10 May 2020 1014 ------- ------- ------- ------- -- Network results - ENT 10.29.2 0 in artifac ts and images. BORIS PENN oRxy 05/10 [employer](F am Med Clinic Team B Non-AD) [employer](Fam Med Clinic Team B Non-AD) TELE CONSULT [id number] Notes Entered by: KIMBERLY BLUE 19 May 2020 0716 ------- ------- ------- ------- -- ER F/U CAREY SIDDIQUI 05/19 [employer](F am Med Clinic Team B Non-AD) [employer](Fam Med Clinic Team B Non-AD) OUTPATIENT [id number] ER follow up for facial lacerat ion with brenda bedolla d/t fall, left shoulde r to KATT TILLEY 05/19 Released w/o Limitations [employer](F am Med Clinic Team B Non-AD) [employer](Fam Med Clinic Team B Non-AD) TELE CONSULT [id number] Notes Entered by: DC PILLAI 31 May 2020 1025 ------- ------- ------- ------- -- Network Results - ENT 11.12.2 0 BORIS PENN Roxy 05/31 [employer](F am Med Clinic Team B Non-AD) [employer]([facility] OUTPATIENT [id number] Insomni a, unspeci fied([id number]) AJ COVINGTON 06/07 Released w/o Limitations [employer](B ehavior al [facility] ([facility])) [employer]([facility] OUTPATIENT [id number] f/u stress AJ COVINGTON 06/23 Released w/o Limitations [employer](B [facility]havior al [facility] ([facility])) [employer](Fam Med Clinic Team B Non-AD) OUTPATIENT [id number] KATT TILLEY 06/23 Released w/o Limitations [employer](F am Med Clinic Team B Non-AD) [employer]([facility] Health Clinic Tm E Non-AD) OUTPATIENT [id number] covid no taste and smell congest ion runny 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 F/U OJ COVINGTONRUBÉNAJ K 07/14 Released w/o Limitations [facility] Med Clinic Team B Non-AD) TELE CONSULT [id number] Notes Entered by: SASHA THOMAS 20 Jul 2020 1444 ------- ------- ------- ------- -- ER Follow Up BELGICA THOMAS 07/20 Other Not Elsewhere Classified [employer](F am Med Clinic Team B Non-AD) [facility](Fam Med Clinic Team B Non-AD) TELE CONSULT [id number] Notes Entered by: SPENCER CARR 26 Aug 2020 0814 ------- ------- ------- ------- -- Call back request REJI CAMACHO 08/26 Advice Assessment [employer](F am Med Clinic Team B Non-AD) [facility](Fam Med Clinic Team B Non-AD) TELE CONSULT [id number] Notes Entered by: LANDON SANTANA 05 Oct 2020 1459 ------- ------- ------- ------- -- STAT Referra l Request ([facility] ) REJI CAMACHO 10/05 Referred for Appointment [employer](F am Med Clinic Team B Non-AD) [employer](Fam Med Clinic Team B Non-AD) OUTPATIENT [id number] Hx of anemia/ transfu sharron- Now bruisin g easily and fatigue d x days. BORIS PENN 10/06 Released w/o Limitations [employer](F am Med Clinic Team B Non-AD) [employer](Fam Med Clinic Team B Non-AD) OUTPATIENT [id number] Med F/U - TrazaBORIS Delaney 10/11 [...] DETERMINATION 004 [employer]D BRONCHODILATION RESPONSIVENESS, [place] [address], PRE- AND POST-BRONCHODILATOR ADMINISTRATION 003 DoD COLLECTION OF VENOUS BLOOD BY VENIPUNCTURE 003 [employer] OPHTHALMOLOGICAL SERVICES: MEDICAL EXAMINATION AND EVALUATION, WITH INITIATION OR CONTINUATION OF DIAGNOSTIC AND TREATMENT PROGRAM; INTERMEDIATE, ESTABLISHED PATIENT [facility] OPHTHALMOLOGICAL SERVICES: MEDICAL EXAMINATION AND EVALUATION, WITH INITIATION OR CONTINUATION OF DIAGNOSTIC AND TREATMENT PROGRAM; INTERMEDIATE, ESTABLISHED PATIENT [facility] SCREENING PAPANICOLAOU SMEAR; OBTAINING, PREPARING AND CONVEYANCE OF CERVICAL OR VAGINAL SMEAR TO LABORATORY 003 [facility] NONINVASIVE EAR OR PULSE OXIMETRY FOR OXYGEN SATURATION; SINGLE DETERMINATION 002 [facility] THERAPEUTIC, PROPHYLACTIC OR DIAGNOSTIC INJECTION [...] CLINICAL INTERVIEW, BEHAVIORAL OBSERVATIONS, CLINICAL DECISION MAKING) [facility] WAIVER SERVICES; NOT OTHERWISE SPECIFIED (NOS) [facility] BRIEF EMOTIONAL/BEHAVIORAL ASSESSMENT (EG, DEPRESSION INVENTORY, ATTENTION-DEFICIT/HY PERACTIVITY DISORDER [ADHD] SCALE), WITH SCORING AND DOCUMENTATION, PER STANDARDIZED INSTRUMENT [facility] HEALTH BEHAVIOR INTERVENTION, INDIVIDUAL, [id number]; INITIAL 30 MINUTES DoD TELE ASSESS & [...] 24 HR/SOON APT;5-10 MIN MED DIS 017 [facility] PATIENT-INITIATED SPIROMETRIC RECORDING PER 30-DAY PERIOD OF TIME; REVIEW AND INTERPRETATION ONLY BY A PHYSICIAN OR OTHER QUALIFIED HEALTH REPAIRER AND CHECKER 017 [facility] CYTOPATHOLOGY, SMEARS, CERVICAL OR VAGINAL, UP TO THREE SMEARS; SCREENING BY ROLL OPERATOR UNDER PHYSICIAN SUPERVISION 017 [facility] MODIFICATION OF CONTACT LENS (SEPARATE PROCEDURE), WITH MEDICAL SUPERVISION OF ADAPTATION 010 [facility] FUNDUS PHOTOGRAPHY WITH INTERPRETATION AND REPORT 009 [facility] THERAPEUTIC PROCEDURE(S), GROUP (2 OR MORE INDIVIDUALS) 008 [facility] APPLICATION OF A MODALITY TO 1 OR MORE AREAS; HOT OR COLD PACKS 008 [facility] SELF-CARE/HOME MANAGMENT TRAIN (EG,ACT OF DAILY LIVING (ADL) &COMPENSAT TRAIN,MEAL PREPARATION,SAFETY PROCS,AND INSTRUCT IN USE OF ASST TECHNOLOGY DEV/ADPT EQUIP) DIR ONE-ON-ONE CONT,EA 15 MINUTES 008 [facility] DETERMINATION OF REFRACTIVE STATE 008 [facility] DETERMINATION OF REFRACTIVE STATE 007 [facility] DESTRUCTION (EG, LASER SURGERY, ELECTROSURGERY, CRYOSURGERY, CHEMOSURGERY, SURGICAL CURETTEMENT), PREMALIGNANT LESIONS (EG, ACTINIC KERATOSES); FIRST LESION 006 [facility] VISUAL FIELD EXAMINATION, UNI OR BILATERAL, WITH MEDICAL DIAGNOSTIC EVAL; INTERMEDIATE EXAM (EG, AT LEAST 2 ISOPTERS ON GOLDMANN PERIMETER, OR SEMIQUANT, AUTO SUPRATHRESHOLD SCREEN PROGRAM, ALVA 005 [facility] INFLUENZA VIRUS VACCINE, TRIVALENT (IIV3), SPLIT VIRUS, 0.5 ML DOSAGE, FOR INTRAMUSCULAR USE 005 [facility] MEASLES, MUMPS AND RUBELLA VIRUS VACCINE (MMR), LIVE, FOR SUBCUTANEOUS USE 005 [facility] HEPATITIS B AND HAEMOPHILUS INFLUENZAE TYPE B VACCINE (HIB-HEPB), FOR INTRAMUSCULAR USE 005 [facility] SCREENING PAPANICOLAOU SMEAR; OBTAINING, PREPARING AND CONVEYANCE OF CERVICAL OR VAGINAL SMEAR TO LABORATORY 005 [facility] Preventive Medicine Services: Counseling/Education On Self-Care Preventive Medicine Services: Counseling/Educatio n On Self-Care [id number] ABRAHAN MORGAN [facility] A e ment And Intervention Review Of Medications Documented Assessment And Intervention Review Of Medications Documented 1160F ABRAHAN REARDON Comprehensive Metabolic Chem Panel Comprehensive Metabolic Chem Panel [id number] [id number] ABRAHAN MORGAN [facility] Non-Physician Phone Call To Pt/Provider Intermed (11-20 min) Non-Physician Phone Call To Pt/Provider Intermed (11-20 min) [id number] 018 SOCRATES BANGURA [facility] Non-Physician Phone Call To Patient/Provider Brief (5-10min) Non-Physician Phone Call To Patient/Provider Brief (5-10min) [id number] 018 YANELY OLIVER Vaginal KAUSHAL Prep Vaginal KAUSHAL Prep [id number] 018 MARIO ROCHA Cervical Wet [place] Cervical Wet [place] [phone] MARIO ROCHA [facility] Non-Physician Phone Call To Patient/Provider Brief (5-10min) Non-Physician Phone Call To Patient/Provider Brief (5-10min) [id number] 018 YANELY OLIVER [facility] Non-Physician Phone Call To Patient/Provider Brief (5-10min) Non-Physician Phone Call To Patient/Provider Brief (5-10min) [id number] 018 JAMAAL GROSSMAN [facility] Non-Physician Phone Call To Patient/Provider Brief (5-10min) Non-Physician Phone Call To Patient/Provider Brief (5-10min) 22914 018 JAMAAL GROSSMAN [facility] Non-Physician Phone Call To Patient/Provider Brief (5-10min) Non-Physician Phone Call To Patient/Provider Brief (5-10min) 64160 018 JAMAAL GROSSMAN [facility] Non-Physician Phone Call To Patient/Provider Brief (5-10min) Non-Physician Phone Call To Patient/Provider Brief (5-10min) 00352 017 JAMAAL GROSSMAN Vaginal Pap Smear Vaginal Pap Smear 32817 03/22 017 ADAM BULLOCK [facility] Spirometric Recording Patient Initiated Per 30 Days Physician Review And Interpretation Only Spirometric Recording Patient Initiated Per 30 Days Physician Review And Interpretation Only 06515 017 RIKI MARTINEZ [facility] Spirometry Pre-bronchodilator Spirometry Pre-bronchodilator [id number] 017 RIKI MARTINEZ Non-Physician Phone Call To Pt/Provider Intermed (11-20 min) Non-Physician Phone Call To Pt/Provider Intermed (11-20 min) [id number] SARAI SORENSEN Ophthalmological Services Modification of Contact Lenses Ophthalmological Services Modification of Contact Lenses [phone] VINAY SOLOMON Ophthalmological Prior Patient Start Comprehensive Care Ophthalmological Prior Patient Start Comprehensive Care 27160 010 VINAY SOLOMON Determination Of Refractive State Determination Of Refractive State 40077 010 VINAY SOLOMON Fundus Photography Fundus Photography 70401 03/09 009 SHEREE GARCIA Diagnostic Imaging Ocular Coherence Topography 009 SHEREE GARCIA Visual Reich Test Intermediate Examination Visual Reich Test Intermediate Examination 42285 009 SHEREE GARCIA Determination Of Refractive State Determination Of Refractive State 87472 009 SHEREE GARCIA Prescription And Fitting Bilateral Corneal Lenses (Not For Aphakia) Prescription And Fitting Bilateral Corneal Lenses (Not For Aphakia) 85938 009 SHEREE GARCIA Ophthalmological Prior Patient Start Comprehensive Care Ophthalmological Prior Patient Start Comprehensive Care 78325 009 SHEREE GARCIA Modalities Cryotherapy Cold Packs Modalities Cryotherapy Cold Packs 89046 008 SANJUANITA COLIN Physical Medicine - Group Physical Therapy Se ion Physical Medicine - Group Physical Therapy Session 96515 008 SANJUANITA COLIN Modalities Cryotherapy Cold Packs Modalities Cryotherapy Cold Packs 18646 008 JAMA JARAMILLO Physical Medicine - Group Physical Therapy Se ion Physical Medicine - Group Physical Therapy Session 89124 008 JAMA JARAMILLO Phys Therapy Education Self Care Training - Per 15 Minutes Phys Therapy Education Self Care Training - Per 15 Minutes 59607 008 IVAN DELEON Physical Therapy Service Evaluation Physical Therapy Service Evaluation 13766 008 IVAN DELEON Determination Of Refractive State Determination Of Refractive State 93749 008 SHEREE GARCIA Prescription And Fitting Bilateral Corneal Lenses (Not For Aphakia) Prescription And Fitting Bilateral Corneal Lenses (Not For Aphakia) 31636 008 SHEREE GARCIA Ophthalmological Prior Patient Start Comprehensive Care Ophthalmological Prior Patient Start Comprehensive Care 61246 008 SHEREE GARCIA Corneal Pachymetry, Bilateral With Interpret And Report Corneal Pachymetry, Bilateral With Interpret And Report 08654 008 SHEREE GARCIA Visual Reich Test Extended Examination Visual Reich Test Extended Examination 92108 008 SHEREE GARCIA Determination Of Refractive State Determination Of Refractive State 83245 007 ANIVAL TRACEY Prescription And Fitting Bilateral Corneal Lenses (Not For Aphakia) Prescription And Fitting Bilateral Corneal Lenses (Not For Aphakia) 84029 007 ANIVAL TRACEY Visual Reich Test Intermediate Examination Visual Reich Test Intermediate Examination 48548 007 ANIVAL TRACEY Ophthalmological Prior Patient Start Comprehensive Care Ophthalmological Prior Patient Start Comprehensive Care 83132 007 ANIVAL TRACEY Destruction Of Benign Lesion By Chemical Cauterization 006 FE LAROSE Screening papanicolaou smear; obtaining, preparing and conveyance of cervical or vaginal smear to laboratory 005 ELVIRA GREENFIELD Orthopedic Splinting Short Arm Static Orthopedic Splinting Short Arm Static 44424 005 ELVIRA GREENFIELD Cast supplies, short arm splint, adult (11 years +), plaster 005 ELVIRA GREENFIELD Pulse Oximetry Pulse Oximetry 35097 004 ESTRELLITA GALINDO 99% [facility] Non-Physician Phone Call To Patient/Provider Brief (5-10min) Non-Physician Phone Call To Patient/Provider Brief (5-10min) 94843 REJI CAMACHO [facility] Waiver services; not otherwise specified (NOS) GAYLE REVELES [facility] Non-Physician Phone Call To Pt/Provider Intermed (11-20 min) Non-Physician Phone Call To Pt/Provider Intermed (11-20 min) [id number] CAREY SIDDIQUI [facility] Psychometric Emotional / Behavioral A e ment Psychometric Emotional / Behavioral Assessment 39465 AJ COVINGTON [facility] Health And Behav A e mt Each 15 Min Initial A e ment Health And Behav Assessmt Each 15 Min Initial Assessment [id number] AJ COVINGTON [facility] Health Behavior Intervention Individual Initial 30 Minutes Health Behavior Intervention Individual Initial 30 Minutes [id number] AJ COVINGTON [facility] Health Behavior A e ment / Re-A e ment Health Behavior Assessment / Re-Assessment 44871 ADRIA AJ Nakul [facility] Social History Combined list of available smoking, tobacco, and other social history from [facility] Defense and [facility] facilities. Social History Type Response Date Comment Sour e Female 08/26/2020 Ambulatory Pha rmacy Tobacco Former - cigarette user Cigarette use:. Ambulatory Pharmacy Sexual Orientation Ambula tory Pharmacy Gender identity Ambulator y Pharmacy This section is an empty social history section. [facility] Assessment and Plan Combined list of future care activities from Department of Defense and Veterans Affairs facilities (e.g., assessment and plan notes, appointments, orders, and referrals). Additional future care activities may be listed in the Plan of Care section. Result Assessment and Plan Date Source Assessment and Plan Extracted from:Title : [facility] - med refill Author: MELISSA MARTINEZ DO Date: 06/21/21 1. A nxiety disorder r efilled as requested and will follow up for any other problems or concerns Ordered: traZODone, 1 tab(s), Oral, every day at bedtime, PRN sleep, # 90 EA, 1 total refill(s), Maintenance, 1 tab(s) Oral every day at bedtime,PRN:sleep, Pharmacy: [facility] [Not filled] Office Visit Level 2 Est 13131 Waiver Services; Not Otherwise Specified (NOS) T2025 Extracted from:Title: [facility] - VIRT - Anxiety disorder Author: WILMAR [...] at bedtime,PRN:sleep, Pharmacy: [facility] [Not filled] Office Visit Level 3 Est 60653 Waiver Services; Not Otherwise Specified (NOS) T2025 [...] patient to register for and utilize the [employer] Patient Portal. - Diagnosis, treatment plan (including [...] Maj Erin, [employer], BSC, MS GABINOC Physician Flute Teacher, Orthopaedic Surgery Extracted from:Title: Office Clinic Note Author: RONN MITCHELL PA-C Date: 01/23/21 1. S creening due [age]yo F due for mammogram - order placed Ordered: 55238 - Clinic Est Level 3 Extracted from:Title: [...] steroid injection given her unusual symptoms Ordered: 88411 - Clinic Est Level 3 2. F [...] flight as needed,PRN:as needed for anxiety, Pharmacy: [facility] [place] [address] - Clinic Est Level 3 Extracted from:Title: [facility]-left knee pain Author: KATT TILLEY NP Date: [...] 30 cap(s), 0 total refill(s), Maintenance, Pharmacy: [email or web address] [Not filled] 54729 - Clinic Est Level 3 Vit B12 and Folate [id number] Vitamin B6 [id number] This note has been transcribed into the [...] will present to the emergency room. 08/18/2024 000-[facility] Functional Status Combined list of recent functional and cognitive assessments recorded at [facility] ([facility] Functional [place] Measurement (FIM) Scale: 1 = Total Assistance (Subject = 0% +), 2 = Maximal Assistance (Subject = 25% +), 3 = Moderate Assistance (Subject = 50% +), 4 = Minimal Assistance (Subject = 75% +), 5 = Supervision, 6 = Modified [place] (Device), 7 = Complete [place] (Timely, Safely). Assessment Date/Time Source Assessment Type Assessment Skill Assessment Score Assessment Details No data available for this section
[2024-08-18 17:12] VITALS: BP 107/70; PULSE 69; RESP 17; TEMP 37; O2SAT 100
--- NOTE | 2024-08-18 17:55 | ED_ITS ---
HPI - URI/Sore Throat General Chief Complaint: Upper Respiratory Infection Stated Complaint: rt ear pain / tight chest Time Seen by Provider: 08/18/24 17:55 Source: patient, RN notes reviewed and old records reviewed Mode of arrival: ambulatory Limitations: no limitations History of Present Illness HPI Narrative: 48-year-old female presents to the [facility] upper respiratory symptoms, ear pain since Saturday, 3 days. Reports that she has had flu exposure. Reports chest congestion, cough, body aches. Has taken Aleve. Related Data Home Medications ?Medication ?Instructions ?Recorded ?Confirmed ?Last Taken ?Type sertraline 50 mg tablet 50 mg PO DAILY 12/08/23 12/08/23 Unknown History spironolactone 100 mg tablet 100 mg PO DAILY 12/08/23 12/08/23 Unknown History trazodone 100 mg tablet 100 mg PO HS 12/08/23 12/08/23 Unknown History Allergies Allergy/AdvReac Type Severity Reaction Status Date / Time No Known Allergies Allergy Verified 08/18/24 17:15 Review of Systems Review of Systems: All systems reviewed & are unremarkable except as noted in HPI and below Constitutional: Constitutional: Reports as per HPI and Reports body ache(s) ENT: Reports system reviewed and no additional complaints, except as documented Cardiovascular: Cardiovascular: Reports no additional cardiovascular c omplaints, Denies chest pain and Denies dyspnea Respiratory: Respiratory: Reports as per HPI, Reports chest congestion, Reports cough and Denies dyspnea Musculoskeletal: Musculoskeletal: Reports no additional musculoskeletal complaints Integumentary/Breasts: Skin/Breast: Reports system reviewed and no additional complaints, except as docu PMFSH Comments At the time of my signature, I reviewed and agree with the nursing past medical, surgical, social, and family history. There is no relevant family history pertinent to the patient complaint. Exam Const: General: cooperative, healthy appearing, comfortable, no acute distress, well developed, alert and well nourished Nutritional Appearance: well nourished Orientation/consciousness: patient oriented x3 Limitations: no limitations HENMT: Head: normal to inspection Ears: TM abnormal with fluid behind the TM (Clear fluid) bilateral; not bulging and not erythematous Face/Nose/Sinus: Normal external nose present, Normal nasal mucous membranes and turbinates present and No nasal discharge present Mouth: Yes Normal oral and palatal mucosa present, Yes lip normal, Yes tongue normal and Yes moist mucous membranes Throat: posterior oropharynx normal, uvula midline and no uvular edema Eyes: General: appearance normal, both eyes and all related structures Alignment and Position: alignment normal Neck: Neck: normal visual inspection, full ROM, no lymphadenopathy and no meningeal signs Chest: Chest palpation & inspection: normal inspection of the chest Resp: Effort & Inspection: normal respiratory effort and able to speak in complete sentences Auscultation: clear to auscultation bilaterally, no crackles, no rales, no rhonchi and no wheezes Cardio: Rate: regular rate Skin: General skin exam: normal color and no rashes or lesions noted Neuro: General: patient oriented x3, gait normal, moves all extremities and no meningeal signs Cognition (Neuro): normal cognition Speech: normal speech Gait exam (Neuro): Normal gait present Extrem: General: normal to inspection, full ROM, capillary refill normal and normal gait Psych: Appearance: grossly normal and well kempt Mental Status: mental status grossly normal Speech and movement: Normal speech and movement present and Clear speech present Affect: normal affect Attitude: cooperative Course Course Level of Care: Express Care Visit Vital Signs Vital signs: Vital Signs Temperature 98.6 F 08/18/24 17:12 Pulse Rate 69 08/18/24 17:12 Respiratory Rate 17 08/18/24 17:12 Blood Pressure 107/70 08/18/24 17:12 Pulse Oximetry 100 08/18/24 17:12 Oxygen Delivery Room Air 08/18/24 17:12 Temperature 98.6 F 08/18/24 17:12 Pulse Rate 69 08/18/24 17:12 Respiratory Rate 17 08/18/24 17:12 Blood Pressure 107/70 08/18/24 17:12 Pulse Oximetry 100 08/18/24 17:12 Oxygen Delivery Room Air 08/18/24 17:12 Reviewed MDM - URI/Sore Throat MDM Narrative Medical decision making narrative: Patient sitting in exam room. Nontoxic, vitals stable. Patient in no acute distress. Patient presents with 3 day history URI symptoms. Flu COVID negative. Patient with clear fluid behind bilateral TMs, reports cough, congestion. Patient appropriate for outpatient treatment viral URI with close follow-up Discharge instructions reviewed with patient, as well as provided in writing per nursing staff. The instructions also include specific and strict return/GO TO THE ER as well as f/u information. All questions have been answered, and the patient deny any further questions with discharge and discharge plan. Some parts of this dictation were generated by voice recognition software and may contain typographical and/or grammatical inaccuracies. Differential Diagnosis Differential diagnosis: Likely upper respiratory infection, otitis media, sinusitis, viral infection, bronchitis, influenza and pharyngitis Lab Data Labs: Lab Results 08/18/24 Range/Units 18:01 POC Influenza A Ag Negative (Negative) POC Influenza B Ag Negative (Negative) POC SARS CoV-2 Ag Negative (Negative) Reviewed Critical Care Time Critical Care Time Critical Care Time: No Discharge Plan Discharge Clinical Impression: Acute bronchitis, Acute serous otitis media of right ear Patient Disposition: Home, Self-Care Condition: Stable Instructions: Antibiotic Form, Acute Bronchitis (ED), Fluid In The Ear (Serous Otitis Media) (ED) Additional Instructions: Your rapid COVID test were negative Your rapid flu test was negative Your symptoms are likely due to a viral illness, which is not treated with antibiotics. Typically viral infections last 7-10 days, can linger for couple of weeks. It is very important to treat your symptoms. Drink plenty of water, Gatorade, Pedialyte, ice pops or Jell-O. -Alternate Tylenol and Motrin per package directions for fever or pain. You can alternate every 4 hours -Antihistamine medication such as Zyrtec/Claritin/Yeni during the day can help improve symptoms. -doing daily nasal irrigations can help relieve pressure your sinuses. Things like a Neti pot -Use Flonase twice a day for 5 days then daily to help reduce the inflammation and dry up your sinuses. -You can also use Mucinex. Be sure to drink plenty of water with this medication at least 8 ounces with every dose and it is important to drink 8 to 10 glasses of water per day. Water is a natural decongestant -Eat and drink things that are easy to swallow, like tea or soup, or popsicles. -Oral rinses such as: Salt water gargles and/or may use topical anesthetic (eg. Chloraseptic spray) or lozenges to relieve dryness or throat pain). -Frequent hand washing or hand ibm websphere commerce developer is one of the best ways to prevent spread of infection. -Using a vaporizer or humidifier at night will also help thin secretions and help with coughing up phlegm. -Follow up with primary care provider in 7-10 days if condition is not improving - For new or worsening symptoms go directly to the nearest ER Patient Language: Niuean Prescriptions: New albuterol sulfate 90 mcg/actuation HFA aerosol inhaler 2 puff inhalation QID PRN (Reason: shortness of breath or wheezing) Qty: 6.7 0RF (DME) Aerochamber MV Spacer See Rx Instructions .Route Qty: 1 0RF Rx Instructions: As directed No Action spironolactone 100 mg tablet 100 mg PO DAILY trazodone 100 mg tablet 100 mg PO HS sertraline 50 mg tablet 50 mg PO DAILY Follow-up/Referrals: Margarito Villagomez MD [Primary Care Provider] - Stand Alone Forms: Work/School Release IP Time of Disposition: 18:08
[2024-08-18 18:02] LABS: EDCOVIDSCREEN Negative (Negative); EDINFLUASCREEN Negative (Negative); EDINFLUBSCREEN Negative (Negative)
== END 2024-08-18 18:10 | disposition home or self-care (01) ==
PROVIDERS: Emergency Provider Nurse Practitioner; PCP Family Medicine
DX: J20.9 Acute bronchitis, unspecified (principal); H65.01 Acute serous otitis media, right ear; Z20.822 Contact with and (suspected) exposure to COVID-19; K21.9 Gastro-esophageal reflux disease without esophagitis; F41.9 Anxiety disorder, unspecified; F32.A Depression, unspecified; Z85.3 Personal history of malignant neoplasm of breast; Z98.84 Bariatric surgery status; Z86.16 Personal history of COVID-19
CPT/HCPCS: 87426; 87804; 99213; G0463

== ENCOUNTER 2024-11-24 16:11 | Emergency (ER) | payer OTHER, SELFPAY ==
--- NOTE | 2024-11-24 16:13 | ED.URI ---
HPI - URI/Sore Throat General Chief Complaint: Upper Respiratory Infection Stated Complaint: pink eye/sinus pressure Time Seen by Provider: 11/24/24 16:13 Source: patient Mode of arrival: ambulatory Limitations: no limitations History of Present Illness HPI Narrative: Patient is a 48-year-old female who presents with right eye irritation, right ear, right sinus pressure and drainage. Reports fever of 99.9 today and some nausea. Denies any vomiting, diarrhea, cough, body aches. Has taken Tylenol once. Patient also had similar episode of eye irritation 2 weeks ago in used antibiotic drops with relief. Related Data Home Medications Medication Instructions Recorded Confirmed Last Taken Type sertraline 50 mg tablet 50 mg PO DAILY 12/08/23 11/24/24 Unknown History spironolactone 100 mg tablet 100 mg PO DAILY 12/08/23 11/24/24 Unknown History trazodone 100 mg tablet 100 mg PO HS 12/08/23 11/24/24 Unknown History zolpidem 5 mg tablet (Ambien) 5 mg PO QHS 09/30/24 11/24/24 Unknown History Allergies Allergy/AdvReac Type Severity Reaction Status Date / Time No Known Allergies Allergy Verified 11/24/24 16:14 Review of Systems Review of Systems: All systems reviewed & are unremarkable except as noted in HPI and below Constitutional: Constitutional: Denies chills, Denies fatigue, Denies fever(s), Denies headache(s), Denies malaise and Denies weakness Eyes: Eyes: Denies blurry vision, Reports eye discharge, Denies itchy eyes and Denies loss of vision ENT: Reports otalgia, Denies headache(s), Reports nasal congestion, Denies sinus pain, Reports sinus pressure and Denies sore throat Cardiovascular: Cardiovascular: Denies chest pain, Denies irregular heart rhythm and Denies dyspnea Respiratory: Respiratory: Reports cough and Denies dyspnea Gastrointestinal: Gastrointestinal: Denies abdominal pain, Denies diarrhea, Reports nausea and Denies vomiting Musculoskeletal: Musculoskeletal: Denies back pain, Denies myalgias and Denies arthralgias Integumentary/Breasts: Skin/Breast: Denies pruritus and Denies rash Neurologic: Denies headache(s), Denies loss of vision and Denies weakness Psychiatric: Psychiatric: Reports no additional psychiatric complaints Endocrine: Endocrine: Denies fatigue Allergic/Immunologic: Allergic/Immunologic: Denies itchy eyes PMFSH Past Medical History Medical History Anxiety Psoriasis Anemia Asthma Surgical History Surgical History H/O shoulder surgery 2023 L History of bunionectomy R 2018, L 2022 H/O gastric bypass History of hysterectomy History of lumpectomy of left breast Family History Family History Unknown Asthma Diabetes mellitus Heart disease Hypertension Ovarian cancer Breast cancer Depression Neuropathy Cerebrovascular accident Social History Social History Smoking status: Former smoker Alcohol intake: current Drinks per week: 1 Substance use: current Substance use type: marijuana Living arrangements: with family Occupation/Education: occupation Additional occupation/education comments: [employer] Gender identity (if verbalized by the patient): Female Comments At time of signature, agree with nursing past medical, surgical, social and family history. There is no relevant family history pertinent to the presenting complaint. Exam Const: General: cooperative, healthy appearing, comfortable, no acute distress and well nourished Nutritional Appearance: well nourished Orientation/consciousness: patient oriented x3 Limitations: no limitations HENMT: Head: normal to inspection, normocephalic and atraumatic Ears: hearing grossly normal bilaterally, external ears normal, TM's normal bilaterally, EAC's normal and no periauricular adenopathy Face/Nose/Sinus: Normal external nose present, Abnormal mucous membranes and turbinates present erythematous bilateral and diffuse, normal facial exam, sinuses nontender and face symmetric Face and sinus: normal facial exam, sinuses nontender and face symmetric Mouth: Yes Normal oral and palatal mucosa present, Yes lip normal, Yes tongue normal, Yes Normal salivary glands and ducts present, Yes oropharynx normal and Yes moist mucous membranes Teeth and gingiva: dentition normal Throat: posterior oropharynx normal, tonsils normal, uvula midline and postnasal drainage Eyes: General: appearance normal, both eyes and all related structures Alignment and Position: alignment normal and position normal Periorbital: periorbital findings normal Eyelids: eyelids normal Pupils: Equal, round and reactive pupils present Neck: Neck: normal visual inspection, full ROM, no lymphadenopathy and supple Chest: Chest palpation & inspection: normal inspection of the chest and normal palpation of entire chest wall Resp: Effort & Inspection: normal respiratory effort and able to speak in complete sentences Auscultation: clear to auscultation bilaterally, no crackles, no rales, no rhonchi and no wheezes Cardio: Rate: regular rate Rhythm: regular rhythm Heart sounds: S1 normal heart sound present and S2 normal heart sound present GI: Inspection: normal to inspection Skin: General skin exam: normal color and no rashes or lesions noted Neuro: General: patient oriented x3 and moves all extremities Cranial nerves: Yes Equal, round and reactive pupils present Speech: normal speech Gait exam (Neuro): Normal gait present Extrem: General: normal to inspection, full ROM and no edema Psych: Appearance: grossly normal and well kempt Mental Status: mental status grossly normal Speech and movement: Normal speech and movement present Affect: normal affect Attitude: cooperative Thought process: Normal thought process present Course Course Emergency Course: Discharge instructions reviewed with patient, as well as provided in writing per nursing staff. The instructions also include specific and strict return/GO TO THE ER as well as f/u information. All questions have been answered, and the patient deny any further questions with discharge and discharge plan. Portions of this record may have been created with voice recognition software Level of Care: Express Care Visit Vital Signs Vital signs: Reviewed MDM - URI/Sore Throat MDM Narrative Medical decision making narrative: Pt well hydrated appearing, in no respiratory distress, hemodynamically stable. Recommend supportive care. The patient is stable at time of discharge the clinical impression was discussed and the patient was given the opportunity to ask questions, which were addressed as completely as possible given the information available at present. Anticipatory guidance and return to care precautions were discussed and the importance of primary care follow-up was stressed and encouraged. The patient voiced understanding of the plan, indications to return, and the need for follow-up. Exam findings show no acute concerns or changes Patient is appropriate for outpatient treatment and follow-up. Differential diagnosis considered: Lim virus, strep pharyngitis, allergic rhinitis, upper respiratory tract infection, sinusitis, rhinosinusitis, nasopharyngitis. viral pharyngitis, otitis media, otitis externa, otitis effusion, foreign body, cerumen impaction, viral syndrome, and influenza. Medical Records Attestation: I reviewed the patient's medical records. Discharge Plan Discharge Clinical Impression: Upper respiratory infection Qualifiers: URI type: acute nasopharyngitis (common cold) Qualified Code(s): J00 - Acute nasopharyngitis [common cold] Patient Disposition: Home Condition: Stable Instructions: Upper Respiratory Infection (ED) Additional Instructions: Your symptoms are likely due to a viral illness, which is not treated with antibiotics. Viral symptoms can be present for up to a few weeks. -For pain/fever, you may take: Tylenol 650-1000mg by mouth every 4-6 hours. Do not exceed 4000mg in 24 hours. Advil (Ibuprofen) 600 mg by mouth every 6 hours. Do not exceed 2400mg in 24 hours. 8 AM: Tylenol 11 AM: Ibuprofen 2 PM: Tylenol 5 PM: Ibuprofen 8 PM: Tylenol 11 PM: Ibuprofen 2 AM: Tylenol 5 AM: Ibuprofen -Antihistamine medication such as Benadryl/Zyrtec at night and Claritin/Yeni during the day can help improve symptoms. -Use Flonase twice a day for 5 days then daily to help reduce the inflammation and dry up your sinuses. -You can also use Sudafed behind the pharmacy counter(12 or 24 hour). Be sure to drink plenty of water with these medications at least 8 ounces with every dose and it is important to drink 8 to 10 glasses of water per day. Water is a natural decongestant -Eat and drink things that are easy to swallow, like tea or soup, or popsicles. -Oral rinses such as: Salt water gargles and/or may use topical anesthetic (eg. Chloraseptic spray) or lozenges to relieve dryness or throat pain). -Frequent hand washing or hand senior electrical controls engineer is one of the best ways to prevent spread of infection. -Using a vaporizer or humidifier at night will also help thin secretions and help with coughing up phlegm. Call your Primary Care Doctor and make a follow-up appointment in 3 days. If your cough worsens, you develop a fever greater than 103, you develop shaking chills, a fast heartbeat, trouble breathing and/or feel you are are breathing much faster than usual, call your Primary Care Doctor or go to the ER. Patient Language: Estonian Prescriptions: New fluticasone propionate [Flonase Allergy Relief] 50 mcg/actuation spray,suspension 1 spray intranasal DAILY Qty: 16 0RF Rx Instructions: administer into each nostril No Action spironolactone 100 mg tablet 100 mg PO DAILY trazodone 100 mg tablet 100 mg PO HS sertraline 50 mg tablet 50 mg PO DAILY zolpidem [Ambien] 5 mg tablet 5 mg PO QHS Follow-up/Referrals: Pantera Malcolm MD [Physician] - 3 Days Time of Disposition: 16:35
--- OUTSIDE RECORDS SUMMARY | 2024-11-24 16:15 | XMS_ITS | Clinical Summary ---
Author Organization [address] Address [address] [place] [address] Care Team Providers Care Claims Associate Name Role Phone Unavailable Primary Care Provider [...]
--- OUTSIDE RECORDS SUMMARY | 2024-11-24 16:15 | XMS_ITS | Clinical Summary ---
Author Organization [facility] Address [address] [place] [address] Care Team Providers Care Granite Cutter Name Role Phone Bob Richmond Primary Care Provider [phone] Lavon Christianson MD Unavailable [phone] Source Comments [facility],non-owned Affiliates and Associated Physician Practices is amultiple site organization consisting of ambulatory clinics and hospital sitesin [place], [place]. This disclosure is being madepursuant to the Care Everywhere program and may not contain all information available regarding this patient. Last updated 18.[facility] Allergies No known active allergies Medications * Be aware that medications may not be up to date on this document. Alwaysverify current medications with the patient. albuterol HFA (Proventil; Ventolin; Proair) 108 (90 [...] DRIVE WHILE TAKING THIS MEDICATION. 10/29/2022 Active HYDROcodone-suman taminophen ([place]) 5-325 MG tablet Take 1 (one) tablet by mouth nightly as needed 02/23/2022 Active lidocaine (Lidoderm) 4 % patch Apply 1 (one) patch to skin every 24 hours 11/16/2022 Active meloxicam (Mobic) 7.5 MG tablet Take with food/milk.Obt ain advice for OTCs.Do not take if . 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 Not on file Not on martin e Last Filed Vital Signs Vital Sign Reading [...] Health Maintenance Due Date Last Done Comments VANESA (AGES 45-75) - [place] SCREENING 1975 [...] - 2023- season) 2024 08/18/2021, 09/09/2020, 08/12/2020 DEPRESSION SCREENING 07/08/2024 INFLUENZA VACCINE (Season Ended) 2025 03/29/2021, 04/26/2020, 04/27/2019, Additional history exists HIB VACCINE Aged Out No longer eligi ble based on patient's age to complete this topic HPV VACCINE Aged Out No longer eligi ble based on patient's age to complete this topic MENINGOCOCCAL (Group B) VACCINE SHARED DECISION-MAKING Aged Out No longer eligible based on patient's age to complete this topic MENINGOCOCCAL GROUPS A/C/Y/W VACCINE Aged Out No longer eligible based on patient's age to complete this topic Insurance [place] [id number] [facility] Care Teams Granite Cutter Relationship Specialty Start Date End Date Bob Richmond PA [address] [place] [id number] PCP - General Physician Civil Project Engineer 01/02/23 Lavon Christianson MD [facility] [id number] Neurological Surgery 01/22/23
--- OUTSIDE RECORDS SUMMARY | 2024-11-24 16:15 | XMS_ITS | Data Portability ---
Author Organization [facility]EL[facility] Bryson Address [address] [place] [address] Care Team Providers Care Photo Intern Name Role Phone MAIKEL BECKHAM Senior Data Analyst Unavailable Assessment No assessment recorded. Plan of Treatment Reminders Order Date Submit Date Provider Last Modified By Organization Details Last Modified Time Details Appointments None recorded. Lab lipid panel, serum 2023 024 [facility], [address] [place] [address], [address], [place], [address], 4 00:09:19 CBC w/ auto diff 2023 024 [facility], [address] [place] [address], [address], [place], [address], 4 00:09:21 PT/PTT, plasma 2023 024 [facility], [address] [place] [address], [facility] [address], [place], [address], 4 07:23:31 BMP, serum or plasma 2023 024 [facility], [address] [place] [address], [address], [place], [address], 4 00:09:20 noninvasive colorectal cancer DNA + occult blood screening, QL, stool 2022 023 [facility] (Cologuard Orders Only), [address], [address], [place], [address], 4 15:49:37 lipid panel, serum 2022 023 [facility], [address], [address], [place], [address], 3 14:14:11 unlisted lab - CBC/D/plt+f er 2022 023 [facility], [address], [address], [place], [address], 3 14:14:12 iron + total iron-bindin g capacity (TIBC), serum 2022 023 [facility], [address], [address], [place], [address], 3 14:14:12 BMP, serum or plasma 2022 023 [facility], [address], [address], [place], [address], 3 14:14:10 Referral technical service representative referral 2023 024 arlene Garcia MD, [address], [address], [place], [address], 4 10:14:[address] referral 2023 024 [facility], [address] [facility] [address], [place], [address], 4 09:59:39 gastroenter ologist referral 2022 023 arlene Gan MD, [address], [address], [place], [address], 10:49:50 Procedures None recorded. Surgeries None recorded. Imaging None recorded. Medication Orders diazepam 5 mg tablet 2023 024 [facility], [address] [place] [address], [address], 11:32:17 naproxen 500 mg tablet 2023 024 [email or web address] [facility], [address] [place] [address], [address], 11:32:19 trazodone 100 mg tablet 2022 023 [id number], [address] [place], [place], [id number], 15:00:49 Patient TargetsNo targets recorded. 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 Referral for Screening for malignant neoplasm of colon Referring Physician: Bob Richmond, Screen Handler, Encounter Date: 02/26/2023 C D Still Operator Referral for Frac ture of phalanx of foot Referring Physician: Ursula Rivas, Family Medicine, Encounter Date: 12/19/2023 Rn Social Services Referral for A lopecia Referring Physician: Ursula Rivas Family Medicine, Encounter Date: 12/19/2023 Results Created Date Observation Date Name Description Value Unit Range Abnormal Flag Note LastModifiedBy Organization Detail LastModifiedTime 05/09/20 24 05/09/2024 COLOG UARD cologuard result Cancel led - Order d not applic able Not Available [facility] (Cologuard Orders Only) [address], [place], [address], 05/09/2024 08:30:48 02/06/20 23 02/05/2023 CBC WITH DIFF WBC 5.8 x10'3 /uL 4.5-11 .0 Not Available [facility] (Lab) [address] [facility], [place], [address], 02/05/2023 12:22:15 02/06/20 23 02/05/2023 CBC WITH DIFF RBC 4.32 x10'6 /uL 4.20-5 .40 Not Available [facility] (Lab) [address] [facility], [place], [address], 02/05/2023 12:22:15 02/06/20 23 02/05/2023 CBC WITH DIFF hemoglobin 13.1 g/dL 12.0-1 6.0 Not Available [facility] (Lab) [address] [facility], [place], [address], 02/05/2023 12:22:15 02/06/20 23 02/05/2023 CBC WITH DIFF hematocrit 40.5 % 38.0-4 8.0 Not Available [facility] (Lab) [address] [facility], [place], [address], 02/05/2023 12:22:15 02/06/20 23 02/05/2023 CBC WITH DIFF MCV 93.8 fL 81.0-9 9.0 Not Available [facility] (Lab) [address] [place], [address], 02/05/2023 12:22:15 02/06/20 23 02/05/2023 CBC WITH DIFF MCH 30.3 pg 27.0-3 1.0 Not Available [facility] (Lab) [address] [facility], [place], [address], 02/05/2023 12:22:15 02/06/20 23 02/05/2023 CBC WITH DIFF MCHC 32.3 g/dL 32.0-3 6.0 Not Available [facility] (Lab) [address] [facility], [place], [address], 02/05/2023 12:22:02/06/20 23 02/05/2023 CBC WITH DIFF RDW 13.7 % 11.5-1 4.5 Not Available [facility] (Lab) [address], [place], [address], 02/05/2023 12:22:15 02/06/20 23 02/05/2023 CBC WITH DIFF platelet count 285 x10'3 /uL 130-40 0 Not Available [facility] (Lab) [address] [facility], [place], [address], 02/05/2023 12:22:15 02/06/20 23 02/05/2023 CBC WITH DIFF MPV 9.8 fL 9.3-12 .2 Not Available [facility] (Lab) [address] [facility], [place], [address], 02/05/2023 12:22:15 02/06/20 23 02/05/2023 CBC WITH DIFF diff type AUTOMA MYAH DIFFER ENTIAL Not Available [facility] (Lab) [address] [facility], [place], [address], 02/05/2023 12:22:15 02/06/20 23 02/05/2023 CBC WITH DIFF neutrophils 53.9 % Not Available [facility] (Lab) [address], [place], [address], 02/05/2023 12:22:15 02/06/20 23 02/05/2023 CBC WITH DIFF lymphocytes 36.8 % Not Available [facility] (Lab) [address], [place], [address], 02/05/2023 12:22:15 02/06/20 23 02/05/2023 CBC WITH DIFF monocytes 7.4 % Not Available [facility] (Lab) [address], [place], [address], 02/05/2023 12:22:15 02/06/20 23 02/05/2023 CBC WITH DIFF eosinophils 1.0 % Not Available [facility] (Lab) [address], [place], [address], 02/05/2023 12:22:15 02/06/20 23 02/05/2023 CBC WITH DIFF basophils 0.7 % Not Available [facility] (Lab) [address], [place], [address], 02/05/2023 12:22:15 02/06/20 23 02/05/2023 CBC WITH DIFF immature granulocytes 0.2 % Not Available [facility] (Lab) [address], [place], [address], 02/05/2023 12:22:15 02/06/20 23 02/05/2023 CBC WITH DIFF abs. neutrophils 3.12 x10'3 /uL 1.80-7 .70 Not Available [facility] (Lab) [address], [place], [address], 02/05/2023 12:22:15 02/06/20 23 02/05/2023 CBC WITH DIFF abs. lymphocytes 2.13 x10'3 /uL 1.00-4 .80 Not Available [facility] (Lab) [place], [address], 02/05/2023 12:22:02/06/20 23 02/05/2023 CBC WITH DIFF abs. monocytes 0.43 x10'3 /uL 0.24-0 .86 Not Available [facility] (Lab) [place], [address], 02/05/2023 12:22:15 02/06/20 23 02/05/2023 CBC WITH DIFF abs. eosinophils 0.06 x10'3 /uL 0.04-0 .36 Not Available [facility] (Lab) [place], [address], 02/05/2023 12:22:15 02/06/20 23 02/05/2023 CBC WITH DIFF abs. basophils 0.04 x10'3 /uL 0.01-0 .08 Not Available [facility] (Lab) [place], [address], 02/05/2023 12:22:15 02/06/20 23 02/05/2023 CBC WITH DIFF abs. immature grans 0.01 x10'3 /uL 0.00-0 .49 Not Available [facility] (Lab) [place], [address], 02/05/2023 12:22:15 02/06/20 23 02/05/2023 COMPR EHENS ETELVINA METAB OLIC PANEL glucose 78 mg/dL 70-99 Not Available [facility] (Lab) [place], [address], 02/05/2023 12:49:52 02/06/20 23 02/05/2023 COMPR EHENS ETELVINA METAB OLIC PANEL BUN 11 mg/dL 7-18 Not Available [facility] (Lab) [address] [place], [address], 02/05/2023 12:49:52 02/06/20 23 02/05/2023 COMPR EHENS ETELVINA METAB OLIC PANEL creatinine 0.71 mg/dL 0.55-1 .02 Not Available [facility] (Lab) [address] [place], [address], 02/05/2023 12:49:52 02/06/20 23 02/05/2023 COMPR EHENS ETELVINA METAB OLIC PANEL sodium 140 mmol/ L 136-14 5 Not Available [facility] (Lab) [address] [place], [address], 02/05/2023 12:49:52 02/06/20 23 02/05/2023 COMPR EHENS ETELVINA METAB OLIC PANEL potassium 4.1 mmol/ L 3.5-5. 1 Not Available [facility] (Lab) [address] [place], [address], 02/05/2023 12:49:52 02/06/20 23 02/05/2023 COMPR EHENS ETELVINA METAB OLIC PANEL chloride 106 mmol/ L 100-10 8 Not Available [facility] (Lab) [address] [place], [address], 02/05/2023 12:49:52 02/06/20 23 02/05/2023 COMPR EHENS ETELVINA METAB OLIC PANEL total CO2 28.8 mmol/ L 21-32 Not Available [facility] (Lab) [address] [place], [address], 02/05/2023 12:49:52 02/06/2002/05/2023 COMPR EHENS ETELVINA METAB OLIC PANEL calcium 9.0 mg/dL 8.5-10 .1 Not Available [facility] (Lab) [address] [facility], [place], [address], 02/05/2023 12:49:52 02/06/2002/05/2023 COMPR EHENS ETELVINA METAB OLIC PANEL total bilirubin 0.3 mg/dL 0.2-1. 2 THIS ASSAY IS NOT RECOM MARY KAY D FOR PATIE NTS UNDER GOING TREAT MENT WITH ELTRO MBOPA G DUE TO THE POTEN TIAL FOR FALSE LY ELEVA MYAH RESUL TS. Not Available [facility] (Lab) [place], [address], 02/05/2023 12:49:52 02/06/2002/05/2023 COMPR EHENS ETELVINA METAB OLIC PANEL total protein 7.2 g/dL 6.4-8. 2 Not Available [facility] (Lab) [place], [address], 02/05/2023 12:49:52 02/06/2002/05/2023 COMPR EHENS ETELVINA METAB OLIC PANEL albumin 3.9 g/dL 3.4-5. 0 Not Available [facility] (Lab) [place], [address], 02/05/2023 12:49:52 02/06/20 23 02/05/2023 COMPR EHENS ETELVINA METAB OLIC PANEL AST 39 U/L 15-37 high Not Available [facility] (Lab) [place], [address], 02/05/2023 12:49:52 02/06/20 23 02/05/2023 COMPR EHENS ETELVINA METAB OLIC PANEL ALT 58 U/L 14-55 high Not Available [facility] (Lab) [place], [address], 02/05/2023 12:49:52 02/06/20 23 02/05/2023 COMPR EHENS ETELVINA METAB OLIC PANEL alk phosphatase 94 U/L 50-136 Not Available [facility] (Lab) [place], [address], 02/05/2023 12:49:52 02/06/2002/05/2023 COMPR EHENS ETELVINA METAB OLIC PANEL anion gap 5.2 mmol/ L 5-15 Not Available [facility] (Lab) [place], [address], 02/05/2023 12:49:52 02/06/20 23 02/05/2023 COMPR EHENS ETELVINA METAB OLIC PANEL BUN creatinine ratio 15.6 6-[address] [facility] (Lab) [place], [address], 02/05/2023 12:49:52 02/06/20 23 02/05/2023 COMPR EHENS ETELVINA METAB OLIC PANEL A:g ratio 1.2 ratio 1.0-2. 0 Not Available [facility] (Lab) [place], [address], 02/05/2023 12:49:52 02/06/2002/05/2023 COMPR EHENS ETELVINA METAB [...] . Not Available [facility] (Lab) [address], [place], [address], 02/05/2023 12:49:52 02/06/2002/05/2023 URIC ACID uric acid 4.5 mg/dL 2.6-6. 0 Not Available [facility] (Lab) [address], [place], [address], 02/05/2023 12:49:55 02/06/2002/05/2023 SED RATE sed rate <1 mm/HR <20 Testi ng perfo rmed on [facility] iSED. Not Available [facility] (Lab) [address] [facility], [place], [address], 02/05/2023 14:37:04 02/27/20 23 02/27/2023 BMP7+ EGFR glucose 74 mg/dL 70-99 Not Available [facility] ([facility]) [address] [place], [address], 03/01/2023 14:14:10 02/27/20 23 02/27/2023 BMP7+ EGFR BUN 12 mg/dL 6-24 Not Available [facility] ([facility]) [address] [facility], [place], [address], 03/01/2023 14:14:10 02/27/2002/27/2023 BMP7+ EGFR creatinine 0.74 mg/dL 0.57-1 .00 Not Available [facility] ([facility]) [address] [facility], [place], [address], 03/01/2023 14:14:10 02/27/20 23 02/27/2023 BMP7+ EGFR eGFR 99 mL/mi n/1.7 3 >59 Not Available [facility] ([facility]) [address] [facility], [place], [address], 03/01/2023 14:14:10 02/27/20 23 02/27/2023 BMP7+ EGFR sodium 140 mmol/ L 134-14 4 Not Available [facility] ([facility]) [address] [facility], [place], [address], 03/01/2023 14:14:10 02/27/20 23 02/27/2023 BMP7+ EGFR potassium 4.3 mmol/ L 3.5-5. 2 Not Available [facility] ([facility]) [address] [facility], [place], [address], 03/01/2023 14:14:10 02/27/2002/27/2023 BMP7+ EGFR chloride 102 mmol/ L 96-106 Not Available [facility] ([facility]) [address] [facility], [place], [address], 03/01/2023 14:14:10 02/27/2002/27/2023 BMP7+ EGFR carbon dioxide, total 25 mmol/ L 20-29 Not Available [facility] ([facility]) [address] [facility], [place], [address], 03/01/2023 14:14:10 02/27/20 23 02/27/2023 LIPID CASCA DE W/RFL X TO APOLI B cholesterol, total 159 mg/dL 100-19 9 Not Available [facility] ([facility]) [address] [facility], [place], [address], 03/01/2023 14:14:11 02/27/20 23 02/27/2023 LIPID CASCA DE W/RFL X TO APOLI B HDL cholesterol 81 mg/dL >39 Not Available [facility]) [address] [place], [address], 03/01/2023 14:14:11 02/27/20 23 02/27/2023 LIPID CASCA DE W/RFL X TO APOLI B LDL/HDL ratio 0.7 ratio 0.0-3. 2 LDL/H DL Ratio Men Women 1/2 Avg.R isk 1.0 1.5 Avg.R isk 3.6 3.2 2X Avg.R isk 6.2 5.0 3X Avg.R isk 8.0 6.1 Not Available [facility] ([facility]) [address] [facility], [place], [address], 03/01/2023 14:14:11 02/27/20 23 02/27/2023 LIPID CASCA DE W/RFL X TO APOLI B non-HDL cholesterol 78 mg/dL 0-129 Not Available [facility] ([facility]) [address] [place], [address], 03/01/2023 14:14:11 02/27/20 23 02/27/2023 LIPID CASCA DE W/RFL X TO APOLI B triglyceride s 112 mg/dL 0-149 Not Available [facility] ([facility]) [address] [facility], [place], [address], 03/01/2023 14:14:11 02/27/20 23 02/27/2023 LIPID CASCA DE W/RFL X TO APOLI B LDL chol calc ([facility]) 58 mg/dL 0-99 Not Available [facility] ([facility]) [address] [place], [address], 03/01/2023 14:14:11 02/27/20 23 02/27/2023 IRON AND TIBC iron bind.cap.(TI BC) 325 ug/dL 250-45 0 Not Available [facility] ([facility]) [address] [facility], [place], [address], 03/01/2023 14:14:12 02/27/20 23 02/27/2023 IRON AND TIBC UIBC 222 ug/dL 131-42 5 Not Available [facility] ([facility]) [address] [place], [address], 03/01/2023 14:14:12 02/27/20 23 02/27/2023 IRON AND TIBC iron 103 ug/dL 27-159 Not Available [facility] ([facility]) [address] [facility], [place], [address], 03/01/2023 14:14:12 02/27/20 23 02/27/2023 IRON AND TIBC iron saturation 32 % 15-55 Not Available [facility] ([facility]) [address] [facility], [place], [address], 03/01/2023 14:14:12 02/27/20 23 02/26/2023 CBC/D /PLT+ NIKKO WBC 6.1 x10e3 /uL 3.4-10 .8 Not Available [facility] ([facility]) [address] [facility], [place], [address], 03/01/2023 14:14:12 02/27/20 23 02/26/2023 CBC/D /PLT+ NIKKO RBC 4.19 x10e6 /uL 3.77-5 .28 Not Available [facility] ([facility]) [address] [facility], [place], [address], 03/01/2023 14:14:12 02/27/20 23 02/26/2023 CBC/D /PLT+ NIKKO hemoglobin 13.1 g/dL 11.1-1 5.9 Not Available [facility] ([facility]) [address] [place], [address], 03/01/2023 14:14:12 02/27/2002/26/2023 CBC/D /PLT+ NIKKO hematocrit 38.4 % 34.0-4 6.6 Not Available [facility] ([facility]) [address] [place], [address], 03/01/2023 14:14:12 02/27/20 23 02/26/2023 CBC/D /PLT+ NIKKO MCV 92 fL 79-97 Not Available [facility] ([facility]) [address] [facility] [place], [address], 03/01/2023 14:14:12 02/27/20 23 02/26/2023 CBC/D /PLT+ NIKKO MCH 31.3 pg 26.6-3 3.0 Not Available [facility] ([facility]) [address] [facility] [place], [address], 03/01/2023 14:14:12 02/27/20 23 02/26/2023 CBC/D /PLT+ NIKKO MCHC 34.1 g/dL 31.5-3 5.7 Not Available [facility] ([facility]) [address] [facility] [place], [address], 03/01/2023 14:14:12 02/27/20 23 02/26/2023 CBC/D /PLT+ NIKKO RDW 13.0 % 11.7-1 5.4 Not Available [facility] ([facility]) [address] [place], [address], 03/01/2023 14:14:12 02/27/20 23 02/26/2023 CBC/D /PLT+ NIKKO platelets 282 x10e3 /uL 150-45 0 Not Available [facility] ([facility]) [address] [place], [address], 03/01/2023 14:14:12 02/27/20 23 02/26/2023 CBC/D /PLT+ NIKKO neutrophils 62 % notest ab. Not Available [facility] ([facility]) [address] [place], [address], 03/01/2023 14:14:12 02/27/20 23 02/26/2023 CBC/D /PLT+ NIKKO lymphs 28 % notest ab. Not Available [facility] ([facility]) [address] [place], [address], 03/01/2023 14:14:12 02/27/20 23 02/26/2023 CBC/D /PLT+ NIKKO monocytes 8 % notest ab. Not Available [facility] ([facility]) [address] [facility], [place], [address], 03/01/2023 14:14:12 02/27/20 23 02/26/2023 CBC/D /PLT+ NIKKO eos 1 % notest ab. Not Available [facility] ([facility]) [address] [facility], [place], [address], 03/01/2023 14:14:12 02/27/20 23 02/26/2023 CBC/D /PLT+ NIKKO basos 1 % notest ab. Not Available [facility] ([facility]) [address] [facility], [place], [address], 03/01/2023 14:14:12 02/27/20 23 02/26/2023 CBC/D /PLT+ NIKKO neutrophils (absolute) 3.9 x10e3 /uL 1.4-7. 0 Not Available [facility] ([facility]) [address] [facility], [place], [address], 03/01/2023 14:14:12 02/27/20 23 02/26/2023 CBC/D /PLT+ NIKKO lymphs (absolute) 1.7 x10e3 /uL 0.7-3. 1 Not Available [facility] ([facility]) [address] [facility], [place], [address], 03/01/2023 14:14:12 02/27/20 23 02/26/2023 CBC/D /PLT+ NIKKO monocytes(ab solute) 0.5 x10e3 /uL 0.1-0. 9 Not Available [facility] ([facility]) [address] [place], [address], 03/01/2023 14:14:12 02/27/20 23 02/26/2023 CBC/D /PLT+ NIKKO eos (absolute) 0.0 x10e3 /uL 0.0-0. 4 Not Available [facility] ([facility]) [address] [facility], [place], [address], 03/01/2023 14:14:12 02/27/2002/26/2023 CBC/D /PLT+ NIKKO baso (absolute) 0.0 x10e3 /uL 0.0-0. 2 Not Available [facility] ([facility]) [address] [facility], [place], [address], 03/01/2023 14:14:12 02/27/2002/26/2023 CBC/D /PLT+ NIKKO immature granulocytes 0 % notest ab. Not Available [facility] ([facility]) [address] [facility], [place], [address], 03/01/2023 14:14:12 02/27/20 23 02/26/2023 CBC/D /PLT+ NIKKO immature grans (abs) 0.0 x10e3 /uL 0.0-0. 1 Not Available [facility] ([facility]) [address] [facility], [place], [address], 03/01/2023 14:14:12 02/27/2002/27/2023 CBC/D /PLT+ NIKKO ferritin 483 NG/mL 15-150 above high normal Not Available [facility] ([facility]) [address] [place], [address], 03/01/2023 14:14:12 02/27/2003/01/2023 APOLI POPRO TEIN B [...] Moder ate Risk <90 Not Available [facility] ([facility]) [address] [facility], [place], [address], 03/01/2023 14:14:10 08/09/19 24 08/09/2023 LIPID PANEL cholesterol, total 193 mg/dL 100-19 9 Not Available [facility] Department [address] [place] [address], [address], 08/10/2023 00:09:19 08/09/1908/09/2023 LIPID PANEL triglyceride s 75 mg/dL 0-149 Not Available [facility] Department [address] [place] [address], [address], 08/10/2023 00:09:19 08/09/1908/09/2023 LIPID PANEL HDL cholesterol 88 mg/dL 40-999 Not Available [facility] Department [address] [place], [address], 08/10/2023 00:09:19 08/09/1908/09/2023 LIPID PANEL VLDL cholesterol sangita 15 mg/dL 5-40 Not Available [facility] Department [address] [place], [address], 08/10/2023 00:09:19 08/09/1908/09/2023 LIPID PANEL LDL chol calc ([facility]) 101 mg/dL 0-99 above high normal Not Available [facility] Department [address] [place], [address], 08/10/2023 00:09:19 08/09/19 24 08/09/2023 BASIC METAB OLIC PANEL (8) glucose 97 mg/dL 70-99 Not Available [facility] Department [address] [place], [address], 08/10/2023 00:09:20 08/09/19 24 08/09/2023 BASIC METAB OLIC PANEL (8) BUN 11 mg/dL 6-24 Not Available [facility] Department [address] [place], [address], 08/10/2023 00:09:20 08/09/19 24 08/09/2023 BASIC METAB OLIC PANEL (8) creatinine 0.61 mg/dL 0.76-1 .27 below low normal Not Available [facility] Department [address] [place], [address], 08/10/2023 00:09:20 08/09/19 24 08/09/2023 BASIC METAB OLIC PANEL (8) eGFR 110 >=60 Units for eGFR value s are mL/mi n/1.7 3 The eGFR Calcu latio n has not been valid ated for patie nts under the age of 18. If test resul ts are displ ayed for a patie nt under the age of 18, disre laurita that value . Not Available [facility] Department [address] [place] [address], [address], 08/10/2023 00:09:20 08/09/19 24 08/09/2023 BASIC METAB OLIC PANEL (8) BUN/creatini ne ratio 18 9-23 Not Available [facility] Department [address] [place], [address], 08/10/2023 00:09:20 08/09/19 24 08/09/2023 BASIC METAB OLIC PANEL (8) sodium 142 mmol/ L 134-14 4 Not Available [facility] Department [address] [place], [address], 08/10/2023 00:09:20 08/09/19 24 08/09/2023 BASIC METAB OLIC PANEL (8) potassium 4.3 mmol/ L 3.5-5. 2 Not Available [facility] Department [address] [place], [address], 08/10/2023 00:09:20 08/09/19 24 08/09/2023 BASIC METAB OLIC PANEL (8) chloride 100 mmol/ L 96-106 Not Available [facility] Department [address] [place], [address], 08/10/2023 00:09:20 08/09/19 24 08/09/2023 BASIC METAB OLIC PANEL (8) carbon dioxide, total 30 mmol/ L 20-29 above high normal Not Available [facility] Department [address] [place], [address], 08/10/2023 00:09:20 08/09/19 24 08/09/2023 BASIC METAB OLIC PANEL (8) calcium 10.0 mg/dL 8.7-10 .2 Not Available [facility] Department [address] [place], [address], 08/10/2023 00:09:20 08/09/19 24 08/09/2023 CBC WITH DIFFE RENTI AL/PL ATELE T WBC 4.6 x10e3 /uL 3.4-10 .8 Not Available [facility] Department [address] [place], [address], 08/10/2023 00:09:21 08/09/19 24 08/09/2023 CBC WITH DIFFE RENTI AL/PL ATELE T RBC 4.50 x10e6 /uL 3.77-5 .28 Not Available [facility] Department [address] [place], [address], 08/10/2023 00:09:21 08/09/19 24 08/09/2023 CBC WITH DIFFE RENTI AL/PL ATELE T hemoglobin 13.2 g/dL 11.1-1 5.9 Not Available [facility] Department [address] [place], [address], 08/10/2023 00:09:21 08/09/19 24 08/09/2023 CBC WITH DIFFE RENTI AL/PL ATELE T hematocrit 40.9 % 34.0-4 6.6 Not Available [facility] Department [address] [place], [address], 08/10/2023 00:09:21 08/09/19 24 08/09/2023 CBC WITH DIFFE RENTI AL/PL ATELE T MCV 91 fL 79-97 Not Available [facility] [facility] [address] [place], [address], 08/10/2023 00:09:21 08/09/19 24 [id number]|2024-11-24 16:15:00|2024-11-24 16:14:00|XMS_ITS|CELENA QUIGLEY|External Medical Summaries|[id number]|" Referral Summary Created on: November 24, 2024 Clara Olivarez : 1975 Sex: Female Author Organization [address] Address [address] [place] [phone] Care Team Providers Care Photo Intern Name Role Phone Unavailable Primary Care Provider [...] of Treatment Not on file Insurance CLAIMS Member Subscriber Plan / Payer (Ef fective 2021-Present) Name:Clara Olivarez Relation to Subscriber:Self Name:Clara Olivarez Payer ID:[id number] (NAIC) Group ID:Not on file Type:[id number] Address: [facility] [address] [place] [phone] "
--- OUTSIDE RECORDS SUMMARY | 2024-11-24 16:15 | XMS_ITS | Patient Health Record ---
Author Organization [facility] Address [address] [place] [address] Care Team Providers Care Funeral Sales Manager Name Role Phone Carlos Rodriguez Unavailable [phone] Meghan BARON, Lavon Unavailable Unavail able Allergies [...] Insured Coverage Start Date Coverage End Date [facility] [address] [place] [phone] [id number] Clara Olivarez Self - patient is the [...]
--- OUTSIDE RECORDS SUMMARY | 2024-11-24 16:15 | XMS_ITS | Data Portability ---
Author Organization [place] - [employer], [facility] [place] [facility] Address [address] [place] [address] Assessment Encounter Date Assessment Date Assessment LastModified [...] Follow-up in 3-4 weeks with new x-rays [email or web address] Not available 06/02/2019 16:01:23 06/15/2019 06/15/2019 Reviewed [...] Follow-up in 3-4 weeks with new x-rays [email or web address] Not available 06/17/2019 12:23:41 07/13/2019 07/13/2019 Reviewed [...] Follow-up in 3-4 weeks with new x-rays [email or web address] Not available 07/13/2019 16:28:01 08/25/2019 08/25/2019 Recommend patien t continue to do passive range of motions of the first metatarsophalangeal joint and that stiffness and swelling can persist up to 6-8 months after surgery. Since she is progressing well with minimal pain and continue supportive shoe gear. Follow-up as needed [email or web address] Not available 08/26/2019 09:18:35 10/13/2019 10/13/2019 Assessment: [...] ed. Surgeries None record ed. Imaging XR, hand 020 10/13/19 20 [email or web address] [facility] [place] [facility], [address], [address], [place], [address], 0 17:57:23 XR, foot 020 08/25/19 20 [email or web address] [facility] [place] [address], [address], [address], [place], [address], 0 09:18:49 XR, foot 020 07/13/19 20 [email or web address] [facility] [place] [address], [address], [address], [place], [address], 0 10:47:39 XR, foot 019 06/15/20 19 [email or web address] [facility] [place] [address], [address], [address], [place], [address], 9 12:23:54 Medication Orders None record ed. Patient TargetsNo targets recorded. Patient InstructionsNo instructions recorded. Reason for Referral None Reported. Results Created Date Observation Date Name Description Value Unit Range Abnormal Flag Note LastModifiedBy Organization Detail LastModifiedTime 10/13/19 20 10/13/2019 XR, hand Result: Abnorm al Not Available [facility] [place] [address], [place], [address], 10/13/2019 11:50:58 06/15/20 19 06/15/2019 XR, foot Result: Hardwa re intact withou t failur e. Not Available [facility] [place] [address], [place], [address], 06/15/2019 10:37:00 07/13/19 20 07/13/2019 XR, foot Result: Hardwa re intact withou t loosen ing or signs of failur e. Osteot funmilayo site appear s to be healed and withou t signs of nonuni on. Not Available [facility] [address], [place], [address], 07/13/2019 11:34:36 08/25/19 20 08/25/2019 XR, foot Result: First metata rsal osteot funmilayo healed withou t signs of nonuni on. Hardwa re intact with no signs of failur e. Not Available [facility] [address], [place], [address], 08/25/2019 10:31:15 05/27/20 19 05/27/2019 XR, foot, 3 or more view No observ ation record ed. [email or web address] [facility] [place] [address], [place], [address], 07/13/2019 09:00:52 Result Notes None recorded. Problems Name Problem SNOMED Code Status Onset Date Resolution Date Notes Provider Name and Address Organization Details Recorded Time Asthma 909914559 Active 2018 Ebonie lacy [place] - [facility] 13:24:17 Osteoporosis 78737988 Active 2018 Ebonie lacy [place] - [facility] 13:24:36 Anemia 582527704 Active 2018 Ebonie lacy [place] - [facility] 13:24:44 Problem Notes None recorded. Procedures Surgical History Date Name Laterality Status Provider Name and Address Organization Details Recorded Time [facility] bunion [facility] 10/13/2019 11:30:02 hernia repair completed [facility] - [facility] 10/13/2019 11:30:10 Gastric bypass for obesity completed Eunice [facility] - [facility] 10/13/2019 11:30:23 Imaging Results Imaging Date Name Status LastModified by Organiz ation Details LastModified Time 05/27/2019 XR, foot, 3 or more view completed [email or web address] [facility] [address], [place], [address], 07/13/2019 09:00:52 Procedure Notes None recorded. Medical [...] Updated DateTime 0 160.02 cm 22 kg/m2 86901.4 5 g 72 /min 106 mm[Hg] 76 mm[Hg] Ebonie Laddsheylanicholas graeme [place] [employer] [employer] 0 10:50:44 Date Recorded Body height Body mass index (BMI) Body weight Provider Name and Address Organization Details Last Updated DateTime 10/13/2019 160.02 cm 22.1 kg/m2 71926.05 g Eunice Prakashlo [place] - [employer] 10/13/2019 11:28:20 Social History None recorded. Functional [...] SNOMED-CT Code Diagnosis ICD10 Code Diagnosis Note [id number] Efrem Proctor DPM [facility] [place] [address] ,[address] [place] [address] 03/18/2019 13:01:17 03/18/2019 14:05:39 Acquired right hallux valgus 6340990957 65782 M20.11 Acquired e quinus deformity of foot 84246027 M21.6X9 140725 Efrem Proctor DPM [facility] [place] [address] [place] [address] 05/27/2019 16:04:38 06/02/2019 17:16:18 Acquired right hallux valgus 6024429763 98880 M20.11 [id number] Efrem Proctor DPM [facility] [place] [address] [place] [address] 06/15/2019 10:33:58 06/15/2019 11:47:12 Pain in right foot 0631552117 88662 M79.671 Acquired r ight hallux valgus 6498300100 27587 M20.11 [id number] DPM [facility] [place] [address] ,[address] [place] [address] 07/13/2019 10:46:23 07/14/2019 18:06:19 Pain in right foot 1222841238 74741 M79.671 Foot pain 78587396 M79.6 71 Acquired r ight hallux valgus 5143244576 79207 M20.11 [id number] Proctor DPM [facility] [place] [address] [place] [address] 08/25/2019 10:23:55 08/25/2019 16:57:03 Pain in right foot 4067018463 27029 M79.671 Foot pain 05490829 M79.6 71 Acquired r ight hallux valgus 2285436025 96978 M20.11 [id number] Adela Spicer MD [facility] [place] [address] [place] [address] 10/13/2019 10:58:20 10/15/2019 11:24:33 Pain in right hand 0963694933 82313 M79.641 Mallet fin faye of right hand 9750639000 63280 M20.011 Right small finger Health Concerns Section Related Observation LastModified by Organization Detai ls LastModified Time None Recorded Concern Status LastModified by Organization Details LastModified Time None Recorded Advance Directives Directive None Recorded Payers Insurance Date Sequence Insurance Name Policy Number Policy Stanton Covered Member ID Stanton Member ID Guarantor Name 10/10/2019 1 [employer] () Clara Olivarez [id number] Clara Olivarez Notes Date Note Type Note [...] has no complaints today. Efrem Proctor DPM [address], [place], [address], [facility] - [employer] 06/02/2019 16:01:36 06/15/2019 text/html 43-year-old [...] fall and she continues to do well. [address], [place], [address], [facility] - [employer] 06/17/2019 12:24:49 07/13/2019 text/html 43-year-old yasir watson presents for postop visit of right foot status post [employer] bunionectomy. Date of surgery was May 15, 2019. Patient relates much improvement since last visit. She has been weightbearing in a postop shoe. She does relate some stiffness to the big toe joint. [address], [place], [address], [facility] [employer] 07/13/2019 16:28:35 08/25/2019 text/html 43-year-old yasir watson presents for postop visit of right foot status post [employer] bunionectomy. Date of surgery was May 15, 2019. Patient states that the pain is very minimal and is worse at the end of the day when she is wearing high heels. When she is wearing supportive shoes she Denies any pain. 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 She has a history of asthma and anemia. Adela Spicer MD [address], [place], [address], [facility] [employer] 10/13/2019 11:57:08 OBGyn Episode No OBEpisode recorded.
--- OUTSIDE RECORDS SUMMARY | 2024-11-24 16:16 | XMS_ITS ---
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 Name Role Phone Bob Richmond PA-C Primary Care Provider Unavail Delroy Steven [facility] REASON FOR VISIT broken T6 Encounters Encounter Location Date Provider Diagnosis 1 OF Juanjo Garcia [place] [id number] [facility] [address] [address] 12/20/2023 Delroy Garcia Plan Of Treatment No Information Progress Notes * Clara GARCIADOB:1975 (48 yo F)Acc No.[id number]:12/20/2023 Progress Notes Patient: Clara HENDRIX Provider: Juanjo Garcia DPM :1975 A ge:48 Y S ex:Female Date:12/20/2023 Address:[address] [place], [place] [id number] Pcp:Bob Richmond PA-C Subjective: * Chief Complaints: [...] Electronic signature of Emmett Garcia DPM on 11/24/2024 at 04:16 PM CDT Sign off status: Pending * Provider: Juanjo Garcia DPM Date: 12/20/2023 Generated for Michael nuñez/Eloisa/Ian on: 11/24/2024 04:16 PM CDT History and Physical Notes * HPI (History [...]
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
--- OUTSIDE RECORDS SUMMARY | 2024-11-24 16:16 | XMS_ITS | Clinical Summary ---
Author Organization [facility] Address [address] [place] [address] Care Team Providers Care Switchboard Operator Assistant Name Role Phone Unavailable Primary Care Provider [...]
--- OUTSIDE RECORDS SUMMARY | 2024-11-24 16:16 | XMS_ITS | Encounter Summary ---
Author Organization [facility] Address [address] [place] [address] Phone Care Team Providers Care Dog Sitter Name Role Phone Bob Richmond LUCY Primary Care Provider [phone] Kenny Alvarez MD Unavailable [phone] Encounter Details Date Type Department Care Team (Late st Contact Info) Description 01/22/2024 Telephone [facility] [address] [address] Kenny Alvarez MD [address] [place] [phone] Social History Tobacco Use Types Packs/Day [...] PM CDT Lab [facility] [address] [address] Lab, [facility] 01/18/2025 3:00 PM CDT Office Visit [facility] [address] [phone] Kenny Alvarez MD [address] [place] [phone] documented as of this encounter Visit Diagnoses Not on filedocumented in this encounter Care Teams Dog Sitter Relationship Specialty Start Date End Date Bob Richmond PAC [address] [place] [id number] PCP - General Family Medicine 10/05/21 Kenny Alvarez MD [address] [place] [address] Consulting Physician Oncology 10/05/21 documented as of this encounter
--- OUTSIDE RECORDS SUMMARY | 2024-11-24 16:16 | XMS_ITS | Encounter Summary ---
Author Organization [facility] Address [address] [place] [address] Care Team Providers Care Ems Director Name Role Phone Unavailable Primary Care Provider Unavailabl e Prior Encounters Date Type Department Care Team Description 05/23/2021 Travel 05/23/2021 3:00 PM [facility] Office Visit [facility] [address], [place] [address] [place] [address] Dino Jin DDS 05/01/2021 Travel 05/01/2021 9:00 AM [facility] Office Visit [facility] [address], [place] [address] [place] [address] Denisse Garcia, [facility] 05/01/2021 9:00 AM [facility] Office Visit [facility] [address], [facility] [address] [place] [address] Dino Jin DDS 10/24/2020 Abstract 10/24/2020 Travel 10/24/2020 8:00 AM MST Office Visit [facility] [address], [facility] [address] [place] [address] Denisse Garcia, [facility] 10/24/2020 8:00 AM MST Office Visit [facility] [address], [facility] [place] [address] Dino Jin DDS 09/22/2020 Travel 09/22/2020 1:00 PM MST Office Visit [facility] [address], [facility] [place] [address] Davin, Don, DDS Last Filed Vital Signs [...] OF RADIOGRAPHIC IMAGES Routine 10/24/2020 8:00 AM [facility] COMPREHENSIVE ORAL EVALUATION - NEW OR ESTABLISHED PATIENT Routine 10/24/2020 8:00 AM [facility] FULL MOUTH PROBE Routine 10/24/2020 8:00 AM MST 31 O AMALGAM FILLING Routine 10/24/2020 12:00 AM MST 19 MO AMALGAM FILLING Routine 10/24/2020 12:00 AM MST 13 MO AMALGAM FILLING Routine 10/24/2020 12:00 AM [facility] PANORAMIC RADIOGRAPHIC IMAGE Routine 09/22/2020 1:00 PM [facility] BITEWING - SINGLE RADIOGRAPHIC IMAGE Routine 09/22/2020 1:00 PM [facility] ADDITIONAL X-RAY Routine 09/22/2020 1:00 PM [facility] SINGLE X-RAY Routine 09/22/2020 1:00 PM [facility] LIMITED ORAL EVALUATION - PROBLEM FOCUSED Routine 09/22/2020 1:00 PM MST Visit Diagnoses Not on file
--- OUTSIDE RECORDS SUMMARY | 2024-11-24 16:17 | XMS_ITS | Encounter Summary ---
Author Organization [facility] Address [address] [place] [address] Care Team Providers Care Sieve Grader Tender Name Role Phone Unavailable Primary Care Provider [...]
--- OUTSIDE RECORDS SUMMARY | 2024-11-24 16:17 | XMS_ITS | Patient Health Record ---
Author Organization [facility] Address [address] [place] [address] Care Team Providers Care Residential Case Manager Name Role Phone Bob Richmond PA-C Primary Care Provider Unavail able Delroy Garcia Unavailable Allergies No Known Allergies Reason For Referral Reason Eval/diagnostic/herber tment Referring Provider First Name Bob Referring Provider Last Name Basilio Referring Provider Speciality Physician Hourly Shift Referred Organization 1 [facility] Referred Provider Abhilash Garcia Referred Address [address],[facility] [address],[place], [place],[address], Referred Provider Specialty Podiatry Referral Priority Routine [...] Problem Status W/U Status Risk Notes Problem 464486085 Hallux valgus of left foot (M20.12) Active confirmed Problem 537098064 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 Problem 91810776 Vitamin D deficiency (E55.9) Active confirmed Problem 88152801 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 Problem 889003262 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 Vital Signs Height 63 in 12/30/2023 Weight 119 lbs 12/30/2023 BMI 21.08 kg/m2 12/30/2023 Encounters Encounter Location Date Provider Diagnosis 1 OF Juanoj Gracia [facility] [address] [facility] [address] [place] [address] 12/30/2023 Delroy Gracia Assessments Encounter Date Diagnosis (ICD Code) Assessment [...] Coverage Start Date Coverage End Date [facility]ly [facility] Claims [address] [place] [address] [phone] [id number] Clara Olivarez Self - patient is the insured Medical (General) History Medical History History ICD Code anemia, anxiety, arthitis, asthma, herni a, migraines Surgical History Surgery Date(Month/Year) R foot bunionectomy
--- OUTSIDE RECORDS SUMMARY | 2024-11-24 16:17 | XMS_ITS | Clinical Summary ---
Author Organization [facility] Address [address] [place] [address] Phone Care Team Providers Care Roving Teller Name Role Phone Basilio Bob AYALA Primary Care Provider [phone] Kenny Alvarez MD Unavailable [phone] Allergies No known active allergies Medications Biotin [...] sertraline (ZOLOFT) 50 MG Tablet May cause drowsiness.Ta ke or use exactly as directed.Obta in advice for OTCs. 4 12/04/19 25 Active zolpidem (AMBIEN) 5 MG Tablet Take 5 mg by mouth nightly as needed. Active ondansetron (ZOFRAN-ODT) 4 MG TABLET DISPERSIBLE Active Fluocinolone Acetonide 0.01 % Oil 4 Active naproxen (NAPROSYN) 500 MG Tablet Take with food/milk.Obt ain advice for OTCs.May cause drowsiness/di zziness.Check with your doctor before becoming . 4 11/14/19 25 Active Problems Problem Noted Date Diagnosed Date Elevated blood pressure reading 07/20/2024 Absolute anemia 08/15/2022 Immunizations Immunization Administration Dates Next Due Covid-19, [...] Comments Blood Pressure 102/82 07/20/2024 2:58 PM PROOF TESTER Pulse 81 07/20/2024 2:58 PM PROOF TESTER Temperature 36.7 C (98 F) 07/20/2024 2:58 PM PROOF TESTER Respiratory Rate 18 07/20/2024 2:58 PM PROOF TESTER Oxygen Saturation 93% 07/20/2024 2:58 PM PROOF TESTER Inhaled Oxygen Concentration - - Weight 56 kg (123 lb 6.4 oz) 07/20/2024 2:58 PM PROOF TESTER Height 160 cm (5' 3 ) 07/20/2024 2:58 PM PROOF TESTER Body Mass Index 21.86 07/20/2024 2:58 PM PROOF TESTER Plan of Treatment Upcoming Encounters Date Type Department Care Team (Late st Contact Info) Description 01/18/2025 2:45 PM CDT Lab [facility] [address] [address] Lab, [facility] 01/18/2025 3:00 PM CDT Office Visit [facility] [address] [address] Kenny Alvarez MD [address] [place] [phone] Health Maintenance Due Date Last Done Comments Hepatitis C Virus (HCV) Screening 1973 Colonoscopy 2018 Colorectal Cancer Screening 2018 Mammogram 11/21/2023 11/20/2022, 11/05, 10/18/2021 Cologuard 12/13/2023 Immunochemical Fecal Occult Blood 12/13/2023 Pneumococcal Immunization (50+ years) (1 of 1 - PCV) 12/13/2023 Zoster Immunization (1 of 2) 12/13/2023 Influenza Immunization (#1) 2024 11/0 09/2022, 04/24/2022, 03/29/2021, Additional history exists SARS-COV-2 Immunization ( season) 2024 08/18/2021, 08/18/2021, 09/09/2020, Additional history exists Respiratory Syncytial Virus (RSV) Immunization (Adult) (1 - 1-dose 75+ series) 2048 Hepatitis B Immunization Completed 006, 06/13/2005, 05/14/2005 TdaP Immunization Completed 10/13/2007 Cervical Cancer Screening (CCS) Discontinued Pap Smear Discontinued 03/22/2017 DTaP/Tdap/Td Immunization Discontinued 2017, 10/13/2007, 05/16/2005 Discussion re Starting/Frequency of Mammograms Discontinued 11/20/2022, 10/18/2021 HPV/Cotest Discontinued Meningococcal Immunization (ACWY) Aged Out No longer eligible based on patient's age to complete this topic Rotavirus Immunization Aged Out No lo nger eligible based on patient's age to complete this topic Insurance CLAIMS Care Teams Roving Teller Relationship Specialty Start Date End Date Bob Richmond PAC [address] [facility] [address] [place] [address] PCP - General Family Medicine 10/05/21 Kenny Alvarez MD [address] [place] [phone] Consulting Physician Oncology 10/05/21
[2024-11-24 16:21] VITALS: BP 115/71; PULSE 76; RESP 16; TEMP 36.6; O2SAT 100
== END 2024-11-24 16:36 | disposition home or self-care (01) ==
PROVIDERS: Emergency Provider Nurse Practitioner Family
DX: J00 Acute nasopharyngitis [common cold] (principal); Z87.891 Personal history of nicotine dependence; F12.90 Cannabis use, unspecified, uncomplicated; J45.909 Unspecified asthma, uncomplicated; L40.9 Psoriasis, unspecified; F41.9 Anxiety disorder, unspecified; Z98.84 Bariatric surgery status
CPT/HCPCS: 99213; G0463